=== PATIENT | female | born 1990 | race Caucasian/White ===

== ENCOUNTER 2018-07-14 14:51 | Outpatient (CLI) | payer MEDICARE ==
[2018-07-14 15:04] VITALS: BP 157/90; PULSE 97; RESP 16; TEMP 97.6
[2018-07-14 16:22] LABS: Appearance,Urine Clear (Clear); Bilirubin,Urine Negative (Negative); Blood,Urine Negative (Negative); Color,Urine Yellow; Glucose,Urine (UA) Negative (Negative); Ketones,Urine Negative (Negative); Leukocyte Esterase,Urine Negative (Negative); Nitrite,Urine Negative (Negative); Protein,Urine Negative (Negative); Specific Gravity,Urine 1.007 (1.001-1.035); Urobilinogen,Urine <2.0 mg/dL (<2.0)
[2018-07-14 16:23] LABS: Basophils % (A) 0 %; Eosinophils # (A) 0.1 k/uL (0-0.7); Eosinophils % (A) 1 %; HCT 41.7 % (34.0-46.0); HGB 14.1 gm/dL (11.4-16.0); Lymphocytes # (A) 2.5 k/uL (1.0-4.8); Lymphocytes % (A) 24 %; MCH 29.7 pg (25.0-35.0); MCHC 33.8 g/dL (31.0-37.0); MCV 87.8 fL (80.0-100.0); Mean Platelet Volume 10.2; Monocytes # (A) 0.5 k/uL (0-1.0); Monocytes % (A) 5 %; Neutrophils # (A) 7.4 k/uL (1.3-7.7); Neutrophils % (A) 69 %; Platelet Count 187 k/uL (150-450); RBC 4.75 m/uL (3.80-5.40); RDW 12.8 % (11.5-15.5); WBC 10.7 k/uL (3.8-10.6)
--- NOTE | 2018-07-14 16:46 | US ---
EXAMINATION TYPE: US OB limited DATE OF EXAM: 07/14/2018 COMPARISON: NONE CLINICAL HISTORY: Decreased movement. EXAM PERFORMED: Transabdominal (TA) GESTATIONAL AGE / DATING Physician Established: (36 weeks/0 days) EDC: 08/11/18 No growth performed on today?s study per ordering physician SURVEY FATIMAH: 11.5 cm Ultrasound evidence of premature rupture of membranes? no PRESENTATION: Vertex HEART RATE: 148 bpm RHYTHM: Normal IMPRESSION: Normal amniotic fluid. No complicating process seen.
[2018-07-14 17:34] LABS: ALT 25 U/L (9-52); AST 24 U/L (14-36); Blood Urea Nitrogen 6 mg/dL (7-17); LDH 390 U/L (313-618)
--- NOTE | 2018-07-14 23:07 | P.MSEPDOC ---
Presenting Problems - Arrival Data Date of Arrival on Unit: 07/14/18 Time of Arrival on Unit: 14:40 Mode of Transport: Portable - Complaint OB-Reason for Admission/Chief Complaint: Decreased Movement Medical History - Information : 1 Para: 0 Term: 0 : 0 Abortions: Spontaneous or Elective: 0 Number of Living Children: 0 - Gestational Age Gestational Age by MADAI (wks/days): 36 Weeks and 0 Days Review of Systems - Review of Systems Constitutional: No problems Breast: No problems ENT: No problems Cardiovascular: No problems Respiratory: No problems Gastrointestinal: No problems Genitourinary: No problems Musculoskeletal: No problems Neurological: No problems Skin: No problems Vital Signs - Temperature Temperature: 97.6 F Temperature Source: Oral - Pulse Pulse Oximetery Pulse Rate: 97 Pulse Assessment Method: Automatic Cuff - Respirations Respiratory Rate: 16 O2 Sat by Pulse Oximetry: 99 - Blood Pressure Right Arm Sitting Blood Pressure: 157/90 Blood Pressure Mean: 112 Blood Pressure Source: Automatic Cuff Medical Screen Scoring (Pre) - Cervical Exam Dilation: Exam Deferred Effacement: Exam Deferred Membranes: Intact - Uterine Contractions Frequency: N/A Duration: N/A Intensity: N/A - Maternal Vital Signs Maternal Temperature: N/A Maternal Blood Pressure: Systolic >139 = 2 Signs of Preeclampsia: N/A Maternal Respirations: N/A - Pain Assessment Pain Location and Character: Right, Groin Pain Scale Used: Numeric (1 - 10) Pain Intensity: 4 Pain Behavior: None Exhibited - Maternal Trauma Maternal Trauma: N/A - Assessment Baseline FHR: 138 Heart Rate - NICHD Category: Category I (Normal) = 0 Position: N/A Station: N/A - Total Score Total Score (Pre): 2 - Level of Risk Level of Risk: Low (0-5) Physician Notification (Pre) - Physician Notified Physician Notified Date: 07/14/18 Medical Screen Scoring (Post) - Cervical Exam Dilation: Exam Deferred Effacement: Exam Deferred Membranes: Intact - Uterine Contractions Frequency: > or = 36 weeks =2 Duration: > 40 seconds = 2 Intensity: N/A - Maternal Vital Signs Maternal Temperature: N/A Maternal Blood Pressure: Diastolic > 89 = 1 Signs of Preeclampsia: N/A Maternal Respirations: N/A - Maternal Trauma Maternal Trauma: N/A - Assessment Heart Rate: 135 Heart Rate - NICHD Category: Category I (Normal) = 0 NST: Reactive Position: N/A Station: N/A - Total Score Total Score (Post): 5 - Post Treatment Level of Risk Post Treatment Level of Risk: Low (0-5) Physician Notification (Post) - Physician Notified Physician Notified Date: 07/14/18 Physician Notified Time: 17:45 Physician/Practitioner Notified:: Dr Pike Spoke With: Dr Pike New Order Received: Yes Disposition - Disposition OB Disposition: Discharge to home, Written follow up instructions reviewed Discharge Date: 07/14/18 Discharge Time: 17:50 I agree with the RN Medical Screening Exam: Yes Risk & Benefit of care provided described in d/c instruction: Yes Diagnosis: GESTATIONAL HTN W/O SIGNIFICANT PROTEINURIA, THIRD TRIMESTER Additional Diagnoses: Decreased movement, third trimester
== END 2018-07-14 17:50 | disposition home or self-care (01) ==
LOC: FBPOP 14:51 → MERGE 14:51 → FBPOP 17:50
PROVIDERS: ATTEND Obstetrics & Gynecology
DX: O13.3 Gestational [pregnancy-induced] hypertension without significant proteinuria, third trimester (principal); Z3A.36 36 weeks gestation of pregnancy
CPT/HCPCS: 59025; 76815; 81003; 82565; 83615; 84112; 84450; 84460; 84520; 84550; 85025; 99215

== ENCOUNTER 2018-07-20 11:41 | Inpatient (IN) | payer MEDICARE, OTHER ==
[2018-07-20] MEDS ORDERED: OXYTOCIN 10 UNIT/ML 1 ML VIAL IM PRN (12:24)
[2018-07-20] MEDS ORDERED: METHYLERGONOVINE 0.2 MG/ML 1 ML AMP IM PRN (12:24)
[2018-07-20] MEDS ORDERED: LIDOCAINE 0.5% (PF) 5 MG/ML (50 ML SDV) SQ PRN (12:24)
[2018-07-20] MEDS ORDERED: CARBOPROST TROMETHAMINE 250 MCG/ML 1 ML AMP IM PRN (12:24)
[2018-07-20] MEDS ORDERED: TERBUTALINE 1 MG/ML VIAL SQ PRN (12:24)
[2018-07-20] MEDS ORDERED: AMPICILLIN 2,000 MG in SODIUM CHLORIDE 0.9% 100 ML IVPB STA (12:26)
[2018-07-20] MEDS ORDERED: LACTATED RINGERS 1,000 ML IV SCH (12:30)
[2018-07-20 13:01] LABS: Basophils % (A) 0 %; Eosinophils # (A) 0.1 k/uL (0-0.7); Eosinophils % (A) 1 %; HCT 42.7 % (34.0-46.0); HGB 14.7 gm/dL (11.4-16.0); Lymphocytes # (A) 2.6 k/uL (1.0-4.8); Lymphocytes % (A) 22 %; MCHC 34.4 g/dL (31.0-37.0); MCV 87.1 fL (80.0-100.0); Mean Platelet Volume 10.2; Monocytes # (A) 0.4 k/uL (0-1.0); Monocytes % (A) 4 %; Neutrophils # (A) 8.8 k/uL (1.3-7.7); Neutrophils % (A) 72 %; Platelet Count 173 k/uL (150-450); RBC 4.91 m/uL (3.80-5.40); RDW 12.5 % (11.5-15.5); WBC 12.1 k/uL (3.8-10.6)
[2018-07-20 13:10] LABS: ALT 27 U/L (9-52); AST 28 U/L (14-36); Blood Urea Nitrogen 7 mg/dL (7-17); LDH 394 U/L (313-618); Uric Acid 5.3 mg/dL (3.7-7.4)
[2018-07-20 13:20] LABS: Appearance,Urine Clear (Clear); Bacteria,Urine Rare /hpf; Bilirubin,Urine Negative (Negative); Blood,Urine Moderate (Negative); Color,Urine Light Yellow; Glucose,Urine (UA) Negative (Negative); Hyaline Casts,Urine 1 /lpf (0-2); Ketones,Urine Negative (Negative); Leukocyte Esterase,Urine Negative (Negative); Mucus,Urine Rare /hpf; Nitrite,Urine Negative (Negative); Protein,Urine Negative (Negative); RBC,Urine 4 /hpf (0-5); Specific Gravity,Urine 1.009 (1.001-1.035); Squamous Epithelial Cell,Urine 3 /hpf (0-4); Urobilinogen,Urine <2.0 mg/dL (<2.0); WBC,Urine 1 /hpf (0-5)
--- NOTE | 2018-07-20 13:24 | P.HPOB ---
History of Present Illness H&P Date: 07/20/18 Chief Complaint: SROM 28 year old presents at 36 weeks 6 days with SROM at 1030am. Her cervix is 3/90/-1. She is kevin irregularly. heart tones 130-135 with moderate variability and reactive. She has had some elevated blood pressures over the last week. Labs have been wnl and she was scheduled for induction at 37 weeks for gestational hypertension. Review of Systems All systems: negative Constitutional: Denies chills, Denies fever Eyes: denies blurred vision, denies pain Ears, nose, mouth and throat: Denies headache, Denies sore throat Cardiovascular: Denies chest pain, Denies shortness of breath Respiratory: Denies cough Gastrointestinal: Denies abdominal pain, Denies diarrhea, Denies nausea, Denies vomiting Genitourinary: Denies dysuria, Denies hematuria Musculoskeletal: Denies myalgias Integumentary: Denies pruritus, Denies rash Neurological: Denies numbness, Denies weakness Psychiatric: Denies anxiety, Denies depression Endocrine: Denies fatigue, Denies weight change Past Medical History Past Medical History: GERD/Reflux, Thyroid Disorder (hypothyroid) Additional Past Medical History / Comment(s): Obstetric history: This is her first . She has had care with Dr Pike since 8 weeks. O+, abs neg, Rub nonimmune, RPR NR, Hep B neg, GBS positive. neg quad. normal anatomy US. History of Any Multi-Drug Resistant Organisms: MRSA Date of last positivie culture/infection: 03/2010 MDRO Source:: Left axilla Additional Past Surgical History / Comment(s): dilated esophagus with EGD Past Psychological History: No Psychological Hx Reported Smoking Status: Never smoker Past Alcohol Use History: None Reported Past Drug Use History: None Reported Medications and Allergies Home Medications Medication Instructions Recorded Confirmed Type Pnv,Calcium 72/Iron/Folic Acid 1 each PO DAILY 07/14/18 07/20/18 History [ Plus Tablet] RX: Levothyroxine Sodium 88 mcg PO DAILY 07/14/18 07/20/18 History Allergies Allergy/AdvReac Type Severity Reaction Status Date / Time No Known Allergies Allergy Verified 07/18/18 11:30 Exam Osteopathic Statement: *. No significant issues noted on an osteopathic structural exam other than those noted in the History and Physical/Consult. Vital Signs Temp Pulse Resp BP Pulse Ox 07/20/18 12:04 97.3 F L 89 18 137/99 97 Intake and Output 07/19/18 07/20/18 07/20/18 22:59 06:59 14:59 Other: Weight 114.305 kg Heart: RRR Lungs: CTAB Abdomen: soft, nontender Extremeties: neg bebo's Results Result Diagrams: 07/20/18 12:50 07/20/18 12:50 Abnormal Lab Results - Last 24 Hours (Table) 07/20/18 07/20/18 Range/Units 12:50 12:50 WBC 12.1 H (3.8-10.6) k/uL Neutrophils # 8.8 H (1.3-7.7) k/uL Creatinine 0.47 L (0.52-1.04) mg/dL Assessment and Plan (1) Gestational hypertension Current Visit: Yes Status: Acute Code(s): O13.9 - GESTATIONAL HTN W/O SIGNIFICANT PROTEINURIA, UNSP TRIMESTER SNOMED Code(s): 804593717 (2) Spontaneous rupture of membranes Current Visit: Yes Status: Acute Code(s): CVI0589 - SNOMED Code(s): 513873282 Plan: 1. admit to [facility] 2. ampicillin for GBS ppx 3. anticipate normal vaginal delivery
[2018-07-20 13:27] LABS: INR 0.9 (<1.2); Partial Thromboplastin Time 22.3 sec (22.0-30.0); Prothrombin Time 9.2 sec (9.0-12.0)
[2018-07-20] MEDS ORDERED: BUTORPHANOL 1 MG/ML 1 ML VIAL IV PRN (14:21)
[2018-07-20 15:31] VITALS: BMI 37.2
[2018-07-20] MEDS ORDERED: AMPICILLIN 1,000 MG in SODIUM CHLORIDE 0.9% 50 ML IVPB SCH (16:25)
[2018-07-20] MEDS ORDERED: WITCH HAZEL 1 EACH MED..PAD TOPICAL PRN (16:49)
[2018-07-20] MEDS ORDERED: diphenhydrAMINE 25 MG CAP PO PRN (16:49)
[2018-07-20] MEDS ORDERED: HYDROCORTISONE 2.5% RECTAL CREAM 30 GM TUBE RECTAL PRN (16:49)
[2018-07-20] MEDS ORDERED: LANOLIN CREAM 5 GM TUBE TOPICAL PRN (16:49)
[2018-07-20] MEDS ORDERED: ZOLPIDEM 5 MG TAB PO PRN (16:49)
[2018-07-20] MEDS ORDERED: BENZOCAINE/MENTHOL SPRAY 1 GM/SPRAY AEROSOL TOPICAL PRN (16:49)
[2018-07-20] MEDS ORDERED: diphenhydrAMINE 50 MG CAP PO PRN (16:49)
[2018-07-20] MEDS ORDERED: MEASLES-MUMPS-RUBELLA VACC/PF 12,500 UNIT/0.5 ML VIAL SQ ONE (16:49)
[2018-07-20] MEDS ORDERED: diphenhydrAMINE 50 MG/ML 1 ML VIAL IVP PRN ×2 (16:49)
[2018-07-20] MEDS ORDERED: SIMETHICONE 80 MG CHEWABLE PO PRN (16:49)
[2018-07-20] MEDS ORDERED: OXYTOCIN 20 UNITS/1000 ML NS 1,000 ML IV SCH (17:00)
[2018-07-20] MEDS: IBUPROFEN 600 MG TAB PO PRN (17:06)
[2018-07-20 19:05] VITALS: RESP 16
[2018-07-20] MEDS: SENNOSIDES-DOCUSATE SODIUM 1 EACH TAB PO SCH (20:19)
[2018-07-20] MEDS: ACETAMINOPHEN TAB 325 MG TAB PO PRN (20:19)
[2018-07-21] MEDS: IBUPROFEN 600 MG TAB PO PRN ×3 (01:12→16:36)
--- NOTE | 2018-07-21 08:02 | P.PROBDLV ---
Vaginal Delivery Note - . Vaginal Delivery Note: 28-year-old presented at 36 weeks and 6 days with spontaneous rupture of membranes at 10:30 AM. Her cervix was 3 cm, 90% effaced, and -1 station. She is kevin every few minutes. heart tones 130-135 with moderate variability and reactive. Ampicillin was started for GBS prophylaxis. She progressed on her own and was completely dilated at 1555. She pushed, and delivered a viable female at 1619 over intact perineum. Head delivered OA, anterior shoulder delivered gentle downward guidance followed by posterior shoulder and rest of body. Nose and mouth bulb suctioned, cord clamped and cut , infant placed on mother's abdomen. Apgars 9, 9, weight 6 pounds 14.8 ounces. Placenta delivered spontaneously, intact with three-vessel cord at 1623. Vagina, cervix, and perineum were inspected. First-degree midline laceration was repaired with 3-0 Vicryl. Estimated blood loss 200 mL.
[2018-07-21] MEDS: SENNOSIDES-DOCUSATE SODIUM 1 EACH TAB PO SCH ×2 (08:34→22:03)
--- NOTE | 2018-07-21 08:44 | P.PNOBGVD ---
Subjective - Subjective Principal diagnosis: Status post vaginal delivery day #1 Interval history: Patient is doing well. She is attempting to breast-feed. Lochia is decreasing. Pain is fairly well controlled with pain medication. Patient reports: Reports appetite normal, Reports voiding normally, Reports pain well controlled, Reports ambulating normally : doing well Objective - Latest Vital Signs Latest vital signs: Vital Signs Temp Pulse Resp BP Pulse Ox 07/21/18 04:00 98.2 F 72 16 130/80 07/21/18 00:00 98.2 F 87 16 144/91 07/20/18 19:03 98 F 84 16 155/67 07/20/18 18:33 86 16 131/67 07/20/18 18:03 100 16 129/78 07/20/18 17:48 86 16 130/74 07/20/18 17:33 88 16 121/72 07/20/18 17:18 88 16 119/71 07/20/18 17:03 98.6 F 90 16 132/75 07/20/18 12:04 97.3 F L 89 18 137/99 97 Intake and Output 07/20/18 07/21/18 07/21/18 22:59 06:59 14:59 Intake Total 499.5 Balance 499.5 Intake: Intake, IV Titration 499.5 Amount Oxytocin 20 Units/1000 ml 499.5 Ns 1,000 ml @ Per Protocol IV .Q0M [facility] Rx#: [id number] Other: # Voids 2 - Exam Extremities: Present: normal. Absent: tenderness Abdomen: Present: normal appearance, soft. Absent: distention, tenderness Uterus: Present: normal, firm, tenderness (Mild) - Labs Labs: Abnormal Lab Results - Last 24 Hours (Table) 07/20/18 07/20/18 07/20/18 Range/Units 12:50 12:50 12:50 WBC 12.1 H (3.8-10.6) k/uL Neutrophils # 8.8 H (1.3-7.7) k/uL Creatinine 0.47 L (0.52-1.04) mg/dL Urine Blood Moderate H (Negative) Urine Bacteria Rare H (None) /hpf Urine Mucus Rare H (None) /hpf Assessment and Plan Assessment: Status post vaginal delivery day #1. Gestational hypertension-no significantly elevated blood pressures. Plan: Continue with care and monitoring of blood pressures.
[2018-07-21] MEDS: ACETAMINOPHEN TAB 325 MG TAB PO PRN ×2 (12:28→22:04)
[2018-07-22] MEDS: IBUPROFEN 600 MG TAB PO PRN ×2 (02:33→13:34)
--- NOTE | 2018-07-22 08:39 | P.DS ---
Providers Date of admission: 07/20/18 12:05 Expected date of discharge: 07/22/18 Attending physician: Emely Pike Primary care physician: Stated None Hospital Course: Is a 28-year-old female 1 para 0 at 36-6/7 weeks who presented with spontaneous rupture of membranes. She did receive antibiotic prophylaxis secondary to group B streptococcus. She also had some mildly elevated blood pressures upon admission. Her preeclampsia labs were negative. She delivered vaginally a viable female infant on 07/20/2018 with scores of 9 at 1 minute and 9 at 5 minutes and infant weight of 6 pounds 14.8 ounces. Her course was essentially uncomplicated. She still has had some elevated blood pressures in the 140s to 150s over 80s to 90s. She denies any headache or blurry vision. She is working on breast-feeding. Lochia is decreasing. Her pain is fairly well controlled with ibuprofen. Other vital signs are normal. Fundus is firm and minimally tender. Extremities show negative Homans. Impression is status post vaginal delivery day #2. Plan is to discharge home today. She is advised to keep an eye on her blood pressures at home. She is advised to call the office if her blood pressures are above 160 systolic or above 110 diastolic. Routine instructions are given. She is advised to call the office if she has any further questions or concerns prior to her appointment time. She is advised to follow up in the office in 6 weeks for a check. Procedures: Spontaneous vaginal delivery of viable female on 07/20/2018 Patient Condition at Discharge: Stable Plan - Discharge Summary New Discharge Prescriptions: New Ibuprofen [Motrin] 600 mg PO Q6HR PRN #60 tab PRN Reason: Mild Pain Or Fever >= 100.5 Continue Pnv,Calcium 72/Iron/Folic Acid [ Plus Tablet] 1 each PO DAILY Levothyroxine Sodium 88 mcg PO DAILY Discharge Medication List Levothyroxine Sodium 88 mcg PO DAILY 07/14/18 [History] Pnv,Calcium 72/Iron/Folic Acid [ Plus Tablet] 1 each PO DAILY 07/14/18 [ History] Ibuprofen [Motrin] 600 mg PO Q6HR PRN #60 tab 07/22/18 [Rx] Follow up Appointment(s)/Referral(s): Emely Pike DO [Doctor of Osteopathic Medicine] - 6 Weeks Activity/Diet/Wound Care/Special Instructions: Instructions 1. Do not begin any exercise program for 3 weeks. 2. Do not resume sexual relations for 3 weeks or longer if uncomfortable. 3. You may take tub baths or showers at any time. 4. You may use tampons if desired after 3 weeks. 5. Keep the area of episiotomy (stitches) clean and dry. 6. If you are not nursing, wear a good fitting, supportive bra during the day and limit fluid intake for at least 1 week to prevent breast engorgement. 7. Call the office, [phone], within the next week to make appointment for your 6 week checkup if it has not already been made. 8. Report any of the following occurrences to the doctor promptly: a. Heavy, excessive bleeding b. Chills, fever c. Burning or frequency of urination d. Pain or redness and breasts if nursing e. Increasing pain or swelling in episiotomy (stitches). In addition to the above instructions, the following additional should be followed: 1. No heavy lifting or straining (exercising) until after 6 week checkup. 2. Keep abdominal incision clean and dry: You may wear a dressing if more comfortable. 3. Make office appointment for 10 days after going home or as instructed by her doctor. Discharge Disposition: HOME SELF-CARE
[2018-07-22] MEDS: SENNOSIDES-DOCUSATE SODIUM 1 EACH TAB PO SCH (09:08)
[2018-07-22] MEDS: ACETAMINOPHEN TAB 325 MG TAB PO PRN (09:09)
[2018-07-22 16:47] VITALS: BP 138/84; PULSE 85; TEMP 98.1
== END 2018-07-22 17:45 | disposition home or self-care (01) | DRG 775 ==
LOC: FBPOP 11:41 → 4FBP 12:05
PROVIDERS: ADMIT Obstetrics & Gynecology; ATTEND Obstetrics & Gynecology
PROC: 0HQ9XZZ Repair Perineum Skin, External Approach (ICD-10-PCS; principal; 2018-07-20)
PROC: 10E0XZZ Delivery of Products of Conception, External Approach (ICD-10-PCS; principal; 2018-07-20)
DX: O42.913 Preterm premature rupture of membranes, unspecified as to length of time between rupture and onset of labor, third trimester (principal); Z37.0 Single live birth; O99.284 Endocrine, nutritional and metabolic diseases complicating childbirth; O13.4 Gestational [pregnancy-induced] hypertension without significant proteinuria, complicating childbirth; O70.0 First degree perineal laceration during delivery; E03.9 Hypothyroidism, unspecified; Z3A.36 36 weeks gestation of pregnancy; Z79.890 Hormone replacement therapy
CPT/HCPCS: 59025; 81001; 82565; 83615; 84112; 84450; 84460; 84520; 84550; 85025; 85610; 85730; 86850; 86900; 86901; 88307; 90707; 99213

== ENCOUNTER 2018-07-28 01:30 | Emergency (ER) | payer OTHER ==
[2018-07-28] MEDS ORDERED: LABETALOL 5 MG/ML VIAL MDV IVP STA (01:58)
[2018-07-28] MEDS ORDERED: SODIUM CHLORIDE 0.9% 1,000 ML IV ONE (01:59)
--- NOTE | 2018-07-28 02:51 | ED ---
General Adult HPI - General Source: patient Mode of arrival: ambulatory Limitations: no limitations <Philly Richter - Last Filed: 07/28/18 04:08> <Ruby Frazier - Last Filed: 07/28/18 07:38> - General Chief complaint: Recheck/Abnormal Lab/Rx Stated complaint: High BP Time Seen by Provider: 07/28/18 01:50 - History of Present Illness Initial comments: 28-year-old female patient who is 8 days presents to the emergency department today for evaluation of elevated blood pressure. Patient states that she has been having issues with blood pressure since before delivery. Patient states she has been taking labetalol. States that the labetalol dose was increased at her last OB appointment yesterday. States that she has been checking her blood pressure throughout the day today and the level has gotten as high as 180/118. Patient states that she is experiencing a mild headache today as well as some midepigastric discomfort. Patient states she is also having a sharp left-sided chest pain and radiates through to her back. She denies any shortness of breath with this. Denies any palpitations. She denies any nausea or vomiting. No syncope or near syncopal episodes. Patient states she had been having some bilateral foot swelling but that has improved. Patient did speak to her HOSPITAL ADMINISTRATIVE ASSISTANT Dr. Pike who instructed her to present to for further evaluation. Patient denies any recent rash, fever, chills, shortness breath, chest pain, abdominal pain, nausea, vomiting, diarrhea, constipation, back pain, numbness, tingling, dizziness, weakness, hematuria, dysuria, urinary urgency, urinary frequency, headache, visual changes, or any other complaints. (Philly Richter) - Related Data Home Medications Medication Instructions Recorded Confirmed Levothyroxine Sodium 88 mcg PO DAILY 07/14/18 07/20/18 Pnv,Calcium 72/Iron/Folic Acid 1 each PO DAILY 07/14/18 07/20/18 [ Plus Tablet] Previous Rx's Medication Instructions Recorded Ibuprofen [Motrin] 600 mg PO Q6HR PRN #60 tab 07/22/18 NIFEdipine [Procardia] 10 mg PO BID #60 capsule 07/28/18 Allergies Allergy/AdvReac Type Severity Reaction Status Date / Time No Known Allergies Allergy Verified 07/28/18 01:40 Review of Systems ROS Other: All systems not noted in ROS Statement are negative. <Philly Richter M - Last Filed: 07/28/18 04:08> ROS Other: All systems not noted in ROS Statement are negative. <Ruby Frazier P - Last Filed: 07/28/18 07:38> ROS Statement: Those systems with pertinent positive or pertinent negative responses have been documented in the HPI. Past Medical History Past Medical History: GERD/Reflux, Thyroid Disorder Additional Past Medical History / Comment(s): Obstetric history: This is her first . She has had care with Dr Pike since 8 weeks. O+, abs neg, Rub nonimmune, RPR NR, Hep B neg, GBS positive. neg quad. normal anatomy US. History of Any Multi-Drug Resistant Organisms: MRSA Date of last positivie culture/infection: 03/2010 MDRO Source:: Left axilla Additional Past Surgical History / Comment(s): dilated esophagus with EGD Past Anesthesia/Blood Transfusion Reactions: No Reported Reaction Past Psychological History: No Psychological Hx Reported Smoking Status: Never smoker Past Alcohol Use History: None Reported Past Drug Use History: None Reported - Past Family History Mother Family Medical History: Cancer <Philly Richter - Last Filed: 07/28/18 04:08> General Exam Limitations: no limitations General appearance: alert, in no apparent distress, other (This is a well- developed, well-nourished adult female patient in no acute distress. Vital signs upon presentation are temperature 98.3F, pulse 76, respirations 16, blood pressure 149/99, pulse ox 97% on room air.) Eye exam: Present: normal appearance, PERRL, EOMI. Absent: scleral icterus, conjunctival injection, periorbital swelling ENT exam: Present: normal exam, normal oropharynx, mucous membranes moist Respiratory exam: Present: normal lung sounds bilaterally. Absent: respiratory distress, wheezes, rales, rhonchi, stridor Cardiovascular Exam: Present: regular rate, normal rhythm, normal heart sounds. Absent: systolic murmur, diastolic murmur, rubs, gallop, clicks GI/Abdominal exam: Present: soft, normal bowel sounds. Absent: distended, tenderness, guarding, rebound, rigid Extremities exam: Present: normal inspection, full ROM, normal capillary refill , other (No pedal edema). Absent: tenderness, pedal edema, joint swelling, calf tenderness Neurological exam: Present: alert, oriented X3, CN II-XII intact Psychiatric exam: Present: normal affect, normal mood Skin exam: Present: warm, dry, intact, normal color. 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 ] Respiratory 16 17 Rate Blood Pressure 149/99 167/103 O2 Sat by Pulse 97 98 Oximetry 07/28/18 07/28/18 07/28/18 01:55 02:20 02:44 Temperature Pulse Rate 79 65 67 Pulse Rate [ [employer] Scientist ] Respiratory 18 17 18 Rate Blood Pressure 159/78 147/92 148/96 O2 Sat by Pulse 98 99 98 Oximetry 07/28/18 07/28/18 07/28/18 03:15 03:45 04:01 Temperature 97.9 F Pulse Rate 68 65 66 Pulse Rate [ [employer] Scientist ] Respiratory 18 16 17 Rate Blood Pressure 151/75 147/71 136/64 O2 Sat by Pulse 97 99 99 Oximetry 07/28/18 04:05 Temperature Pulse Rate 92 Pulse Rate [ [employer]ist ] Respiratory 17 Rate Blood Pressure 145/69 O2 Sat by Pulse 97 Oximetry EKG Findings - EKG Comments: EKG Findings:: EKG obtained at oh to 30 shows normal sinus rhythm with a sinus arrhythmia. Ventricular rate is 62, AL interval 134, QRS duration 82, QTC 418, QTC 424. No evidence of ST elevation or depression. <Philly Richter - Last Filed: 07/28/18 04:08> Medical Decision Making - Lab Data Result diagrams: 07/28/18 02:30 07/28/18 02:30 - Radiology Data Radiology results: report reviewed, image reviewed <Philly Richter - Last Filed: 07/28/18 04:08> - Lab Data Result diagrams: 07/28/18 02:30 07/28/18 02:30 <Ruby Frazier - Last Filed: 07/28/18 07:38> - Medical Decision Making 28-year-old female patient presented to the emergency department today for evaluation of elevated blood pressure in the period. Physical examination was relatively unremarkable. Patient had no edema, lung sounds are clear, abdomen is soft and nontender. Labs reviewed and were unremarkable. Patient no protein in the urine. Liver enzymes are within normal range. LDH and uric acid were satisfactory. We did give a dose of labetalol and magnesium here in the department which did improve blood pressure readings. Did discuss the case with my attending Dr. Frazier who did speak to patient's HOSPITAL ADMINISTRATIVE ASSISTANT doctor well and also did consult with Dr. quintero on from cardiology. Patient will be discharged home at this time with a prescription for Procardia. She is instructed to call the medicaid nurse's office tomorrow for an appointment. She is also instructed to follow-up with her HOSPITAL ADMINISTRATIVE ASSISTANT for recheck as possible. Return parameters were discussed in detail. She verbalizes understanding and agrees with this plan. (Philly Richter) I personally saw and examined the patient. I reviewed and agree with the mid- level provider findings including all diagnostic interpretations and treatment plans as written unless otherwise stated. I was present for weldon portions of any procedures performed. I discussed patient care with Dr. Glendy MIKE on-call who agrees that based on labs the patient does not have preeclampsia. Recommends discussion of patient's blood pressure management with cardiology. Patient care was discussed with cardiology on-call who stated the patient is okay to be discharged home on by mouth Procardia contact the office in the morning for follow-up later in the day. (Ruby Frazier) - Lab Data Lab Results 07/28/18 07/28/18 07/28/18 Range/Units 02:30 02:30 02:30 WBC 10.6 (3.8-10.6) k/uL RBC 4.70 (3.80-5.40) m/uL Hgb 13.9 (11.4-16.0) gm/dL Hct 42.0 (34.0-46.0) % MCV 89.4 (80.0-100.0) fL MCH 29.7 (25.0-35.0) pg MCHC 33.2 (31.0-37.0) g/dL RDW 12.7 (11.5-15.5) % Plt Count 238 (150-450) k/uL Neutrophils % 65 % Lymphocytes % 27 % Monocytes % 4 % Eosinophils % 3 % Basophils % 0 % Neutrophils # 6.9 (1.3-7.7) k/uL Lymphocytes # 2.8 (1.0-4.8) k/uL Monocytes # 0.4 (0-1.0) k/uL Eosinophils # 0.3 (0-0.7) k/uL Basophils # 0.0 (0-0.2) k/uL Sodium 139 (137-145) mmol/L Potassium 4.6 (3.5-5.1) mmol/L Chloride 110 H (98-107) mmol/L Carbon Dioxide 19 L (22-30) mmol/L Anion Gap 10 mmol/L BUN 9 (7-17) mg/dL Creatinine 0.52 (0.52-1.04) mg/dL Est GFR (CKD-EPI)AfAm >90 (>60 ml/min/1.73 sqM) Est GFR (CKD-EPI)NonAf >90 (>60 ml/min/1.73 sqM) Glucose 94 (74-99) mg/dL Uric Acid 7.1 (3.7-7.4) mg/dL Calcium 9.4 (8.4-10.2) mg/dL Total Bilirubin 0.6 (0.2-1.3) mg/dL AST 36 (14-36) U/L ALT 30 (9-52) U/L Alkaline Phosphatase 105 (38-126) U/L Lactate Dehydrogenase 704 H (313-618) U/L Total Protein 6.8 (6.3-8.2) g/dL Albumin 3.6 (3.5-5.0) g/dL Urine Color Light Yellow Urine Appearance Cloudy H (Clear) Urine pH 5.5 (5.0-8.0) Ur Specific [place] 1.006 (1.001-1.035) Urine Protein Negative (Negative) Urine Glucose (UA) Negative (Negative) Urine Ketones Negative (Negative) Urine Blood Moderate H (Negative) Urine Nitrite Negative (Negative) Urine Bilirubin Negative (Negative) Urine Urobilinogen <2.0 (<2.0) mg/dL Ur Leukocyte Esterase Large H (Negative) Urine RBC 10 H (0-5) /hpf Urine WBC 30 H (0-5) /hpf Ur Squamous Epith Cells 3 (0-4) /hpf Urine Bacteria Rare H (None) /hpf Urine Mucus Rare H (None) /hpf - Radiology Data Two-view x-ray of the chest is obtained. Heart and mediastinum are normal. Lungs are clear. Diaphragm is trauma. Bony thorax appears normal. Impression by Dr. Gomez shows normal chest with no change. (Philly Richter) Disposition Is patient prescribed a controlled substance at d/c from ED?: No Time of Disposition: 04:04 <Philly Richter - Last Filed: 07/28/18 04:08> <Ruby Frazier - Last Filed: 07/28/18 07:38> Clinical Impression: Malignant hypertension Disposition: HOME SELF-CARE Condition: Good Instructions: Hypertension (ED) Additional Instructions: Start Procardia in the morning. Call Dr. Gaffney's (medicaid nurse) in the morning for appointment. Follow-up with your HOSPITAL ADMINISTRATIVE ASSISTANT for recheck as soon as possible. Return here immediately for any new, worsening, or concerning symptoms. Prescriptions: NIFEdipine [Procardia] 10 mg PO BID #60 capsule Referrals: Emely Pike DO [Doctor of Osteopathic Medicine] - 1-2 days Jose Miguel Gaffney MD [STAFF PHYSICIAN] - 1-2 days
--- NOTE | 2018-07-28 02:52 | XR ---
EXAMINATION TYPE: XR chest 2V DATE OF EXAM: 07/28/2018 COMPARISON: 05/24/2007 HISTORY: Elevated blood pressure chest pain TECHNIQUE: Frontal and lateral views of the chest are obtained. FINDINGS: Heart and mediastinum are normal. Lungs are clear. Diaphragm is normal. Bony thorax appear s normal. IMPRESSION: Normal chest. No change.
[2018-07-28 02:53] LABS: Basophils % (A) 0 %; Eosinophils # (A) 0.3 k/uL (0-0.7); Eosinophils % (A) 3 %; HGB 13.9 gm/dL (11.4-16.0); Lymphocytes # (A) 2.8 k/uL (1.0-4.8); Lymphocytes % (A) 27 %; MCH 29.7 pg (25.0-35.0); MCHC 33.2 g/dL (31.0-37.0); MCV 89.4 fL (80.0-100.0); Mean Platelet Volume 8.1; Monocytes # (A) 0.4 k/uL (0-1.0); Monocytes % (A) 4 %; Neutrophils # (A) 6.9 k/uL (1.3-7.7); Neutrophils % (A) 65 %; Platelet Count 238 k/uL (150-450); RDW 12.7 % (11.5-15.5); WBC 10.6 k/uL (3.8-10.6)
[2018-07-28 02:55] LABS: Appearance,Urine Cloudy (Clear); Bacteria,Urine Rare /hpf; Bilirubin,Urine Negative (Negative); Blood,Urine Moderate (Negative); Color,Urine Light Yellow; Glucose,Urine (UA) Negative (Negative); Ketones,Urine Negative (Negative); Leukocyte Esterase,Urine Large (Negative); Mucus,Urine Rare /hpf; Nitrite,Urine Negative (Negative); PH, Urine 5.5 (5.0-8.0); Protein,Urine Negative (Negative); RBC,Urine 10 /hpf (0-5); Specific Gravity,Urine 1.006 (1.001-1.035); Squamous Epithelial Cell,Urine 3 /hpf (0-4); Urobilinogen,Urine <2.0 mg/dL (<2.0); WBC,Urine 30 /hpf (0-5)
[2018-07-28 03:01] LABS: ALT 30 U/L (9-52); AST 36 U/L (14-36); Albumin 3.6 g/dL (3.5-5.0); Alkaline Phosphatase 105 U/L (38-126); Anion Gap 10 mmol/L; Blood Urea Nitrogen 9 mg/dL (7-17); Calcium 9.4 mg/dL (8.4-10.2); Carbon Dioxide 19 mmol/L (22-30); Chloride 110 mmol/L (98-107); Glucose 94 mg/dL (74-99); LDH 704 U/L (313-618); Sodium 139 mmol/L (137-145); Total Bilirubin 0.6 mg/dL (0.2-1.3); Total Protein 6.8 g/dL (6.3-8.2); Uric Acid 7.1 mg/dL (3.7-7.4)
[2018-07-28 03:06] LABS: Potassium 4.6 mmol/L (3.5-5.1)
[2018-07-28] MEDS: MAGNESIUM SULFATE-D5W PMX 1 GM in DEXTROSE/WATER 1 100ML.BAG IVPB SCH ×2 (03:11→04:16)
[2018-07-28] MEDS ORDERED: NIFEdipine 10 MG CAP PO STA (04:02)
[2018-07-28 04:40] VITALS: RESP 17; TEMP 97.9
[2018-07-28 04:42] VITALS: BP 145/69
[2018-07-28 04:45] VITALS: PULSE 62
== END 2018-07-28 04:21 | disposition home or self-care (01) ==
LOC: EC 01:30
DX: I10 Essential (primary) hypertension (principal); E07.9 Disorder of thyroid, unspecified; Z86.14 Personal history of Methicillin resistant Staphylococcus aureus infection; R07.9 Chest pain, unspecified; R19.8 Other specified symptoms and signs involving the digestive system and abdomen
CPT/HCPCS: 36415; 93005; 80053; 83615; 84550; 85025; 81001; 71046; 99284; 96365; 96375; 96361 ×2; J3475

== ENCOUNTER → 2019-08-23 | Outpatient (CLI) | payer OTHER ==
[2019-08-23 16:20] LABS: Appearance,Urine Clear (Clear); Bacteria,Urine Rare /hpf; Bilirubin,Urine Negative (Negative); Blood,Urine Negative (Negative); Color,Urine Yellow; Glucose,Urine (UA) Negative (Negative); Ketones,Urine Negative (Negative); Leukocyte Esterase,Urine Trace (Negative); Mucus,Urine Rare /hpf; Nitrite,Urine Negative (Negative); PH, Urine 5.5 (5.0-8.0); Protein,Urine Negative (Negative); RBC,Urine 1 /hpf (0-5); Squamous Epithelial Cell,Urine 3 /hpf (0-4); Urobilinogen,Urine <2.0 mg/dL (<2.0)
== END | disposition home or self-care (01) ==
LOC: LABWHC1 15:43
PROVIDERS: ATTEND Obstetrics & Gynecology
DX: R82.90 Unspecified abnormal findings in urine (principal)
CPT/HCPCS: 81001

== ENCOUNTER → 2019-10-13 | Outpatient (CLI) | payer OTHER ==
--- NOTE | 2019-10-16 09:40 | US ---
EXAMINATION TYPE: US pelvic complete DATE OF EXAM: 10/13/2019 COMPARISON: US 2011 CLINICAL HISTORY: N92.1 Metrorrhagia. Irregular periods for the past 3 months, patient on contr ol, 1, para 1 TECHNIQUE: . Transabdominal sonographic images of the pelvis were acquired. Date of LMP: 10/10/2019 EXAM MEASUREMENTS: Uterus: 7.9 x 3.5 x 4.9 cm Endometrial Stripe: 0.3 cm Right Ovary: 2.3 x 1.0 x 2.1 cm Left Ovary: 2.8 x 1.7 x 2.7 cm 1. Uterus: anteverted 2. Endometrium: appears wnl for patient's LMP 3. Right Ovary: wnl 4. Left Ovary: wnl 5. Bilateral Adnexa: wnl 6. Posterior cul-de-sac: wnl IMPRESSION: Unremarkable pelvic ultrasound. In neutral thickness is within normal limits.
== END | disposition home or self-care (01) ==
LOC: RADUSWWP 15:26
PROVIDERS: ATTEND Obstetrics & Gynecology
DX: N92.1 Excessive and frequent menstruation with irregular cycle (principal)
CPT/HCPCS: 76856

== ENCOUNTER → 2020-04-02 | Outpatient (CLI) | payer OTHER ==
--- NOTE | 2020-04-03 06:23 | US ---
EXAMINATION TYPE: Transabdominal DATE OF EXAM: 04/02/2020 3:58 PM COMPARISON: NONE CLINICAL HISTORY: O46.91 Bleeding. Positive beta-hCG test. EXAM PERFORMED: Transabdominal (TA) EXAM MEASUREMENTS: GESTATIONAL AGE / DATING Physician Established: Not yet established Dates by LMP: (9 weeks/2 days) EDC: 11/03/19 Dates by First Scan: No previous this is first scan Dates by Current Scan for:(8 weeks/ 1 days) EDC: 11/11/19 MATERNAL ANATOMY Uterus: 11.1 x 7.7 x 7.4cm Right Ovary: 2.7 x 1.6 x 1.5cm Left Ovary: 2.6 x 1.2 x 1.1cm Post CDS / Adnexa: wnl Presence of free fluid: wnl GESTATION / SURVEY CRL: 16mm ( 8 weeks/1 days) Yolk Sac (normal less than 6mm): 2mm Heart Rate: 170 bpm Rhythm: Normal IUP: Viable IUP Date of LMP: 02/12/20 Beta HcG (if available): Not available at this time Single live intrauterine gestation is confirmed this gestational sac, yolk sac, and pole are id entified on images saved. No free fluid in pelvic cul-de-sac. Both ovaries are identified without suspicious extraovarian adnexal mass. IMPRESSION: Single live intrauterine gestation, mean crown-rump length 1.6 cm corresponding to 8 week 1 day old fetus.
== END | disposition home or self-care (01) ==
LOC: RADUSWWP 15:36
PROVIDERS: ATTEND Obstetrics & Gynecology
DX: O46.91 Antepartum hemorrhage, unspecified, first trimester (principal); N94.89 Other specified conditions associated with female genital organs and menstrual cycle; Z3A.08 8 weeks gestation of pregnancy
CPT/HCPCS: 76801

== ENCOUNTER 2020-04-08 14:31 | Emergency (ER) | payer OTHER ==
[2020-04-08 14:40] VITALS: TEMP 97.8
--- NOTE | 2020-04-08 14:50 | ED ---
General Adult HPI - General Chief complaint: Vaginal Bleeding Stated complaint: 9wks preg, cramping/bleeding Time Seen by Provider: 04/08/20 14:41 Source: patient, RN notes reviewed, old records reviewed Mode of arrival: ambulatory Limitations: no limitations - History of Present Illness Initial comments: 30-year-old female patient presents to ED for chief complaint of with spotting and some cramping. Patient reports that this began last night. Reports that she has had suprapubic cramping and she has been passing some small clots. Patient states that she is 9 weeks . She has been taking her vitamins. She follows up with Dr. Pike. She also reports that last night she did have some burning with urination, denies any today. She denies any other complaints. Systemic: Pt denies fatigue, fever/chills, rash. Pt denies weakness, night sweats, weight loss. Neuro: Pt denies headache, visual disturbances, syncope or pre-syncope. HEENT: Pt denies ocular discharge or irritation, otalgia, rhinorrhea, pharyngitis or notable lymphadenopathy. Cardiopulmonary: Pt denies chest pain, SOB, heart palpitations, dyspnea on exertion. Abdominal/GI: Pt denies n/v/d. : Pt denies frequency/urgency. Denies new onset urinary or bowel incontinence. MSK: Pt denies myalgia, loss of strength or function in extremities. Neuro: Pt denies new onset weakness, paresthesias. - Related Data Home Medications Medication Instructions Recorded Confirmed Levothyroxine Sodium 88 mcg PO DAILY 07/14/18 07/20/18 Pnv,Calcium 72/Iron/Folic Acid 1 each PO DAILY 07/14/18 07/20/18 [ Plus Tablet] Previous Rx's Medication Instructions Recorded Ibuprofen [Motrin] 600 mg PO Q6HR PRN #60 tab 07/22/18 NIFEdipine [Procardia] 10 mg PO BID #60 capsule 07/28/18 Allergies Allergy/AdvReac Type Severity Reaction Status Date / Time No Known Allergies Allergy Verified 04/08/20 14:36 Review of Systems ROS Statement: Those systems with pertinent positive or pertinent negative responses have been documented in the HPI. ROS Other: All systems not noted in ROS Statement are negative. Past Medical History Past Medical History: GERD/Reflux, Thyroid Disorder Additional Past Medical History / Comment(s): Obstetric history: This is her first . She has had care with Dr Pike since 8 weeks. O+, abs neg, Rub nonimmune, RPR NR, Hep B neg, GBS positive. neg quad. normal anatomy US. History of Any Multi-Drug Resistant Organisms: MRSA Date of last positivie culture/infection: 03/2010 MDRO Source:: Left axilla Additional Past Surgical History / Comment(s): dilated esophagus with EGD Past Anesthesia/Blood Transfusion Reactions: No Reported Reaction Past Psychological History: No Psychological Hx Reported Smoking Status: Never smoker Past Alcohol Use History: None Reported Past Drug Use History: None Reported - Past Family History Mother Family Medical History: Cancer General Exam - General Exam Comments Initial Comments: Constitutional: NAD, AOX3, Pt has pleasant affect. HEENT: NC/AT, trachea midline. External ears appear normal, without discharge. Mucous membranes moist. EOM intact. There is no scleral icterus. No pallor noted. Cardiopulmonary: RRR, no murmurs, rubs or gallops, no JVD noted. Lungs CTAB in anterior and posterior schroeder. No peripheral edema. Abdominal exam: Abdomen soft and non-distended. Abdomen mildly tender to palpation in suprapubic region.. Bowel sounds active in LLQ. No hepatosplenomegaly. No ecchymosis Neuro: CN II-XII grossly intact. No nuchal rigidity. No raccon eyes, no keyes sign, MSK: Full active ROM in upper and lower extremities Limitations: no limitations Course Vital Signs 04/08/20 14:36 Temperature 97.8 F Pulse Rate 104 H Respiratory 18 Rate Blood Pressure 134/88 O2 Sat by Pulse 100 Oximetry Medical Decision Making - Medical Decision Making 30-year-old female patient presents to ED for chief complaint of with spotting and some cramping. Patient reports that this began last night. Reports that she has had suprapubic cramping and she has been passing some small clots. Patient states that she is 9 weeks . She has been taking her vitamins. She follows up with Dr. Pike. She also reports that last night she did have some burning with urination, denies any today. She denies any other complaints. Patient vital signs are stable, afebrile. Physical exam displayed very mild suprapubic tenderness. Laboratory investigations are unremarkable. Urine is negative. HCG Quant is 630,000. Ultrasound display findings compatible with a viable of approximately 9 weeks and 4 days with a heart rate of 167. Blood type is O+. Patient will be discharged will follow up with primary care provider and switchboard manager, will return to ER if condition worsens. Case discussed with Dr. Reina. - Lab Data Result diagrams: 04/08/20 15:10 04/08/20 15:10 Lab Results 04/08/20 04/08/20 04/08/20 Range/Units 15:10 15:10 15:10 WBC 5.8 (3.8-10.6) k/uL RBC 4.64 (3.80-5.40) m/uL Hgb 14.3 (11.4-16.0) gm/dL Hct 40.5 (34.0-46.0) % MCV 87.3 (80.0-100.0) fL MCH 30.8 (25.0-35.0) pg MCHC 35.3 (31.0-37.0) g/dL RDW 12.0 (11.5-15.5) % Plt Count 222 (150-450) k/uL Neutrophils % 73 % Lymphocytes % 20 % Monocytes % 4 % Eosinophils % 1 % Basophils % 0 % Neutrophils # 4.2 (1.3-7.7) k/uL Lymphocytes # 1.2 (1.0-4.8) k/uL Monocytes # 0.2 (0-1.0) k/uL Eosinophils # 0.1 (0-0.7) k/uL Basophils # 0.0 (0-0.2) k/uL Sodium 138 (137-145) mmol/L Potassium 3.9 (3.5-5.1) mmol/L Chloride 107 (98-107) mmol/L Carbon Dioxide 20 L (22-30) mmol/L Anion Gap 11 mmol/L BUN 7 (7-17) mg/dL Creatinine 0.44 L (0.52-1.04) mg/dL Est GFR (CKD-EPI)AfAm >90 (>60 ml/min/1.73 sqM) Est GFR (CKD-EPI)NonAf >90 (>60 ml/min/1.73 sqM) Glucose 93 (74-99) mg/dL Calcium 9.9 (8.4-10.2) mg/dL Total Bilirubin 0.2 (0.2-1.3) mg/dL AST 23 (14-36) U/L ALT 13 (4-34) U/L Alkaline Phosphatase 74 (38-126) U/L Total Protein 7.2 (6.3-8.2) g/dL Albumin 4.2 (3.5-5.0) g/dL HCG, Quant 52672.8 mIU/mL Urine Color Urine Appearance (Clear) Urine pH (5.0-8.0) Ur Specific Ma[place] (1.001-1.035) Urine Protein (Negative) Urine Glucose (UA) (Negative) Urine Ketones (Negative) Urine Blood (Negative) Urine Nitrite (Negative) Urine Bilirubin (Negative) Urine Urobilinogen (<2.0) mg/dL Ur Leukocyte Esterase (Negative) Blood Type O Positive Blood Type Recheck O Pos Bld Type Recheck Status No 04/08/20 Range/Units 15:10 WBC (3.8-10.6) k/uL RBC (3.80-5.40) m/uL Hgb (11.4-16.0) gm/dL Hct (34.0-46.0) % MCV (80.0-100.0) fL MCH (25.0-35.0) pg MCHC (31.0-37.0) g/dL RDW (11.5-15.5) % Plt Count (150-450) k/uL Neutrophils % % Lymphocytes % % Monocytes % % Eosinophils % % Basophils % % Neutrophils # (1.3-7.7) k/uL Lymphocytes # (1.0-4.8) k/uL Monocytes # (0-1.0) k/uL Eosinophils # (0-0.7) k/uL Basophils # (0-0.2) k/uL Sodium (137-145) mmol/L Potassium (3.5-5.1) mmol/L Chloride (98-107) mmol/L Carbon Dioxide (22-30) mmol/L Anion Gap mmol/L BUN (7-17) mg/dL Creatinine (0.52-1.04) mg/dL Est GFR (CKD-EPI)AfAm (>60 ml/min/1.73 sqM) Est GFR (CKD-EPI)NonAf (>60 ml/min/1.73 sqM) Glucose (74-99) mg/dL Calcium (8.4-10.2) mg/dL Total Bilirubin (0.2-1.3) mg/dL AST (14-36) U/L ALT (4-34) U/L Alkaline Phosphatase (38-126) U/L Total Protein (6.3-8.2) g/dL Albumin (3.5-5.0) g/dL HCG, Quant mIU/mL Urine Color Light Yellow Urine Appearance Clear (Clear) Urine pH 6.0 (5.0-8.0) Ur Specific [place] 1.004 (1.001-1.035) Urine Protein Negative (Negative) Urine Glucose (UA) Negative (Negative) Urine Ketones Negative (Negative) Urine Blood Negative (Negative) Urine Nitrite Negative (Negative) Urine Bilirubin Negative (Negative) Urine Urobilinogen <2.0 (<2.0) mg/dL Ur Leukocyte Esterase Negative (Negative) Blood Type Blood Type Recheck Bld Type Recheck Status Disposition Clinical Impression: Vaginal bleeding Disposition: HOME SELF-CARE Condition: Stable Instructions (If sedation given, give patient instructions): Threatened Miscarriage (ED) Additional Instructions: Follow-up with primary care provider and MANAGER TRANSPORTATION tomorrow. Return to ER if condi tion worsens in any way. Is patient prescribed a controlled substance at d/c from ED?: No Referrals: Carlos Rowe MD [Primary Care Provider] - 1-2 days
[2020-04-08 15:24] LABS: Appearance,Urine Clear (Clear); Bilirubin,Urine Negative (Negative); Blood,Urine Negative (Negative); Color,Urine Light Yellow; Glucose,Urine (UA) Negative (Negative); Ketones,Urine Negative (Negative); Leukocyte Esterase,Urine Negative (Negative); Nitrite,Urine Negative (Negative); Protein,Urine Negative (Negative); Specific Gravity,Urine 1.004 (1.001-1.035); Urobilinogen,Urine <2.0 mg/dL (<2.0)
[2020-04-08 15:29] LABS: Basophils % (A) 0 %; Eosinophils # (A) 0.1 k/uL (0-0.7); Eosinophils % (A) 1 %; HCT 40.5 % (34.0-46.0); HGB 14.3 gm/dL (11.4-16.0); Lymphocytes # (A) 1.2 k/uL (1.0-4.8); Lymphocytes % (A) 20 %; MCH 30.8 pg (25.0-35.0); MCHC 35.3 g/dL (31.0-37.0); MCV 87.3 fL (80.0-100.0); Mean Platelet Volume 8.8; Monocytes # (A) 0.2 k/uL (0-1.0); Monocytes % (A) 4 %; Neutrophils # (A) 4.2 k/uL (1.3-7.7); Neutrophils % (A) 73 %; Platelet Count 222 k/uL (150-450); RBC 4.64 m/uL (3.80-5.40); WBC 5.8 k/uL (3.8-10.6)
[2020-04-08 15:34] LABS: ALT 13 U/L (4-34); AST 23 U/L (14-36); African American GFR (CKD) >90 (>60 ml/min/1.73 sqM); Albumin 4.2 g/dL (3.5-5.0); Alkaline Phosphatase 74 U/L (38-126); Anion Gap 11 mmol/L; Blood Urea Nitrogen 7 mg/dL (7-17); Calcium 9.9 mg/dL (8.4-10.2); Carbon Dioxide 20 mmol/L (22-30); Chloride 107 mmol/L (98-107); Glucose 93 mg/dL (74-99); Non-African American GFR(CKD) >90 (>60 ml/min/1.73 sqM); Potassium 3.9 mmol/L (3.5-5.1); Sodium 138 mmol/L (137-145); Total Bilirubin 0.2 mg/dL (0.2-1.3); Total Protein 7.2 g/dL (6.3-8.2)
--- NOTE | 2020-04-08 16:01 | US ---
EXAMINATION TYPE: Transabdominal DATE OF EXAM: 04/08/2020 3:47 PM COMPARISON: 04/02/2020 CLINICAL HISTORY: pain. Pain EXAM PERFORMED: Transabdominal (TA) EXAM MEASUREMENTS: GESTATIONAL AGE / DATING Physician Established: (9 weeks/0 days) EDC: 11/11/2020 Dates by LMP: (10 weeks/3 days) EDC: 11/03/2020 Dates by First Scan: (8 weeks/1 days) EDC: 11/11/2020 Dates by Current Scan for: (9 weeks/4 days) EDC: 11/07/2020 MATERNAL ANATOMY Uterus: 12.8 x 6.8 x 8.5 cm Right Ovary: 3.7 x 2.4 x 2.1 cm Left Ovary: 3.7 x 2.1 x 2.7 cm Post CDS / Adnexa: wnl Presence of free fluid: no Presence of corpus luteal cyst: no Presence of subchorionic bleed: no GESTATION / SURVEY CRL: 2.7 cm (9 weeks/4 days) Yolk Sac (normal less than 6mm): 3 mm Heart Rate: 167 bpm Rhythm: Normal IUP: Viable IUP Beta HcG (if available): Not available at this time IMPRESSION: Findings compatible with a viable of approximately 9 weeks 4 days with a heart rate 167 bpm .
[2020-04-08 16:20] LABS: HCG,Quantitative Serum 63068.8 mIU/mL
[2020-04-08 17:19] VITALS: BP 125/82; PULSE 92; RESP 16
== END 2020-04-08 17:19 | disposition home or self-care (01) ==
LOC: EC 14:31
DX: O20.9 Hemorrhage in early pregnancy, unspecified (principal); O99.281 Endocrine, nutritional and metabolic diseases complicating pregnancy, first trimester; E07.9 Disorder of thyroid, unspecified; O99.611 Diseases of the digestive system complicating pregnancy, first trimester; Z3A.09 9 weeks gestation of pregnancy; Z86.14 Personal history of Methicillin resistant Staphylococcus aureus infection; K21.9 Gastro-esophageal reflux disease without esophagitis; Z79.890 Hormone replacement therapy; Z80.9 Family history of malignant neoplasm, unspecified
CPT/HCPCS: 36415; 76801; 80053; 81003; 84702; 85025; 86900; 86901; 99284

== ENCOUNTER 2020-07-04 12:10 | Outpatient (CLI) | payer OTHER ==
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
[2020-07-04 14:18] VITALS: BP 118/74; PULSE 83; RESP 16; TEMP 97.3
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
== END 2020-07-04 13:47 | disposition home or self-care (01) ==
LOC: FBPOP 12:10
PROVIDERS: ATTEND Obstetrics & Gynecology
DX: O99.89 Other specified diseases and conditions complicating pregnancy, childbirth and the puerperium (principal); Z3A.21 21 weeks gestation of pregnancy
CPT/HCPCS: 76805; 99213

== ENCOUNTER 2020-10-13 21:25 | Outpatient (CLI) | payer OTHER ==
[2020-10-13] MEDS ORDERED: LACTATED RINGERS 1,000 ML IV SCH (22:00)
[2020-10-13 22:16] LABS: Appearance,Urine Clear (Clear); Bacteria,Urine Rare /hpf; Bilirubin,Urine Negative (Negative); Blood,Urine Negative (Negative); Color,Urine Yellow; Glucose,Urine (UA) Negative (Negative); Ketones,Urine 3+ (Negative); Leukocyte Esterase,Urine Trace (Negative); Mucus,Urine Many /hpf; Nitrite,Urine Negative (Negative); Protein,Urine 1+ (Negative); RBC,Urine 2 /hpf (0-5); Specific Gravity,Urine 1.027 (1.001-1.035); Squamous Epithelial Cell,Urine 2 /hpf (0-4); Urobilinogen,Urine <2.0 mg/dL (<2.0); WBC,Urine 5 /hpf (0-5)
[2020-10-13 22:25] LABS: Basophils # (A) 0.1 k/uL (0-0.2); Basophils % (A) 1 %; Eosinophils # (A) 0.1 k/uL (0-0.7); Eosinophils % (A) 0 %; HCT 39.5 % (34.0-46.0); HGB 13.8 gm/dL (11.4-16.0); Lymphocytes # (A) 2.6 k/uL (1.0-4.8); Lymphocytes % (A) 16 %; MCH 30.6 pg (25.0-35.0); MCV 87.4 fL (80.0-100.0); Mean Platelet Volume 10.1; Monocytes # (A) 0.5 k/uL (0-1.0); Monocytes % (A) 3 %; Neutrophils # (A) 12.7 k/uL (1.3-7.7); Neutrophils % (A) 79 %; Platelet Count 178 k/uL (150-450); RBC 4.52 m/uL (3.80-5.40); RDW 12.2 % (11.5-15.5); WBC 16.2 k/uL (3.8-10.6)
[2020-10-13 22:37] LABS: ALT 14 U/L (4-34); AST 27 U/L (14-36); African American GFR (CKD) >90 (>60 ml/min/1.73 sqM); Blood Urea Nitrogen 9 mg/dL (7-17); LDH 431 U/L (313-618); Non-African American GFR(CKD) >90 (>60 ml/min/1.73 sqM); Uric Acid 4.2 mg/dL (3.7-7.4)
[2020-10-13 22:39] LABS: Creatinine,Urine Random 256.3 mg/dL
[2020-10-13 22:39] LABS: Creatinine,Urine Random 257.5 mg/dL
[2020-10-13 22:43] LABS: Protein/Creatinine Ratio,Urine 0.039
[2020-10-13 23:12] VITALS: BP 142/95; PULSE 111; RESP 16; TEMP 96.7
--- NOTE | 2020-10-14 08:20 | P.MSEPDOC ---
Presenting Problems - Arrival Data Date of Arrival on Unit: 10/13/20 Time of Arrival on Unit: 21:25 Mode of Transport: Wheelchair - Complaint OB-Reason for Admission/Chief Complaint: Possible Onset of Labor Comment: Patient presents to triage with contractions that started approximately 2 hours ago. States they are about 2-4 minutes apart, denies leaking of fluids, vaginal bleeding or intercourse in the last 24 hours. Medical History - Information : 2 Para: 1 Term: 0 : 1 Abortions: Spontaneous or Elective: 0 Number of Living Children: 1 - Gestational Age Gestational Age by MADAI (wks/days): 35 Weeks and 6 Days - History Complications: Prior Comment: Patient has a history of pre-eclampsia with her last baby, is going to [facility] for this reason. Review of Systems - Review of Systems Constitutional: No problems Breast: No problems ENT: No problems Cardiovascular: No problems Respiratory: No problems Gastrointestinal: No problems Genitourinary: No problems Musculoskeletal: No problems Neurological: No problems Skin: No problems Vital Signs - Temperature Temperature: 96.7 F Temperature Source: Temporal Artery Scan - Pulse Pulse Oximetery Pulse Rate: 111 Pulse Assessment Method: Auscultation - Respirations Respiratory Rate: 16 Oxygen Delivery Method: Room Air - Blood Pressure Sitting Blood Pressure: 142/95 Blood Pressure Mean: 110 Blood Pressure Source: Automatic Cuff Medical Screen Scoring (Pre) - Cervical Exam Dilation: 1-3 cm = 1 Membranes: Intact - Uterine Contractions Frequency: < 36 weeks = 6 Duration: > 40 seconds = 2 Intensity: N/A - Maternal Vital Signs Maternal Temperature: N/A Maternal Blood Pressure: Diastolic > 89 = 1 Signs of Preeclampsia: Headache = 1 Maternal Respirations: N/A - Maternal Trauma Maternal Trauma: N/A - Assessment - Baby A Baseline FHR: 135 Heart Rate - NICHD Category: Category I (Normal) = 0 NST: Reactive Position: N/A Station: N/A - Total Score - Baby A Total Score - Baby A: 11 - Total Score - Baby B Total Score - Baby B: 11 - Total Score - Baby C Total Score - Baby C: 11 - Level of Risk - Baby A Level of Risk - Baby A: High (10+) - Level of Risk - Baby B Level of Risk - Baby B: High (10+) - Level of Risk - Baby C Level of Risk - Baby C: High (10+) Physician Notification (Pre) - Physician Notified Physician Notified Date: 10/13/20 Physician Notified Time: 22:00 New Order Received: Yes - Notification Comment Comment: Orders given to send PIH labs and recheck cervix in one hour, call physician with report. @[id number] Orders given to give patient remainder of fluid 500cc bolus due to 3+ ketones, patient may choose to stay another hour for evaluation or be discharged home with instructions if patient decides to stay and cervix remains unchanged discharge patient home with instructions. If patient stays and cervix changes call physician with report. Disposition - Disposition OB Disposition: Discharge to home, Written follow up instructions reviewed Discharge Date: 10/14/20 Discharge Time: 00:00 I agree with the RN Medical Screening Exam: Yes Risk & Benefit of care provided described in d/c instruction: Yes Diagnosis: FALSE LABOR BEFORE 37 COMPLETED WEEKS OF GEST, THIRD TRI Additional Diagnoses: Gestational hypertension
== END 2020-10-14 | disposition home or self-care (01) ==
LOC: FBPOP 21:25
PROVIDERS: ATTEND Obstetrics & Gynecology
DX: O47.03 False labor before 37 completed weeks of gestation, third trimester (principal); O13.3 Gestational [pregnancy-induced] hypertension without significant proteinuria, third trimester; Z3A.35 35 weeks gestation of pregnancy
CPT/HCPCS: 59025; 81001; 82565; 82570; 83615; 84156; 84450; 84460; 84520; 84550; 85025; 96360; 96361; 99215

== ENCOUNTER 2020-10-26 10:56 | Outpatient (CLI) | payer OTHER, BC ==
[2020-10-26 11:51] VITALS: BP 139/87; PULSE 93; RESP 18; TEMP 97.4
--- NOTE | 2020-10-27 05:23 | P.MSEPDOC ---
Presenting Problems - Arrival Data Date of Arrival on Unit: 10/26/20 Time of Arrival on Unit: 10:56 Mode of Transport: Ambulatory - Complaint OB-Reason for Admission/Chief Complaint: NST Comment: BP check Medical History - Information : 2 Para: 1 Term: 0 : 1 Abortions: Spontaneous or Elective: 0 Number of Living Children: 1 - Gestational Age Gestational Age by MADAI (wks/days): 37 Weeks and 5 Days - History Complications: Prior Comment: HTN in the last week, hx of HTN with last . Review of Systems - Review of Systems Constitutional: No problems Breast: No problems ENT: No problems Cardiovascular: No problems Respiratory: No problems Gastrointestinal: No problems Genitourinary: No problems Musculoskeletal: No problems Neurological: No problems Skin: No problems Vital Signs - Temperature Temperature: 97.4 F Temperature Source: Temporal Artery Scan - Pulse Right Pulse Rate: 93 Pulse Assessment Method: Automatic Cuff - Respirations Respiratory Rate: 18 Oxygen Delivery Method: Room Air O2 Sat by Pulse Oximetry: 100 - Blood Pressure Right Arm Blood Pressure: 139/87 Blood Pressure Mean: 104 Blood Pressure Source: Automatic Cuff Medical Screen Scoring (Pre) - Cervical Exam Dilation: Exam Deferred Effacement: Exam Deferred Membranes: Intact - Uterine Contractions Frequency: N/A Duration: N/A Intensity: N/A - Maternal Vital Signs Maternal Temperature: N/A Maternal Blood Pressure: N/A Signs of Preeclampsia: N/A Maternal Respirations: N/A - Maternal Trauma Maternal Trauma: N/A - Assessment - Baby A Baseline FHR: 125 Heart Rate - NICHD Category: Category I (Normal) = 0 NST: Reactive Position: N/A Station: N/A - Assessment - Baby C Baseline FHR: 125 Heart Rate - NICHD Category: Category I (Normal) = 0 NST: Reactive Position: N/A Station: N/A - Total Score - Baby A Total Score - Baby A: 0 - Total Score - Baby B Total Score - Baby B: 0 - Total Score - Baby C Total Score - Baby C: 0 - Level of Risk - Baby A Level of Risk - Baby A: Low (0-5) - Level of Risk - Baby B Level of Risk - Baby B: Low (0-5) - Level of Risk - Baby C Level of Risk - Baby C: Low (0-5) Physician Notification (Pre) - Physician Notified Physician Notified Date: 10/26/20 Physician Notified Time: 11:21 New Order Received: Yes - Notification Comment Comment: RN reported to Dr. Saha NST results, reactive and WNL. Pt is feeling some contractions, but they are still tolerable. Pt states that she does feel some increased pressure as well. Pt is scheduled for IOL on Monday 10/[address] Pike. Pt to DC home with plan to come in on Wednesday for IOL. Disposition - Disposition OB Disposition: Discharge to home Discharge Date: 10/26/20 Discharge Time: 11:30 I agree with the RN Medical Screening Exam: Yes Risk & Benefit of care provided described in d/c instruction: Yes Diagnosis: GESTATIONAL HTN W/O SIGNIFICANT PROTEINURIA, THIRD TRIMESTER
== END 2020-10-26 11:30 | disposition home or self-care (01) ==
LOC: FBPOP 10:56
PROVIDERS: ATTEND Obstetrics & Gynecology
DX: O13.3 Gestational [pregnancy-induced] hypertension without significant proteinuria, third trimester (principal); Z3A.37 37 weeks gestation of pregnancy
CPT/HCPCS: 59025; 99213

== ENCOUNTER 2020-10-27 14:50 | Inpatient (IN) | payer OTHER, BC ==
[2020-10-27] MEDS ORDERED: METHYLERGONOVINE 0.2 MG/ML 1 ML AMP IM PRN (15:13)
[2020-10-27] MEDS ORDERED: AMPICILLIN 2,000 MG in SODIUM CHLORIDE 0.9% 100 ML IVPB STA (15:13)
[2020-10-27] MEDS ORDERED: TERBUTALINE 1 MG/ML VIAL SQ PRN (15:13)
[2020-10-27] MEDS ORDERED: OXYTOCIN 10 UNIT/ML 1 ML VIAL IM PRN (15:13)
[2020-10-27] MEDS ORDERED: CARBOPROST TROMETHAMINE 250 MCG/ML 1 ML AMP IM PRN (15:13)
[2020-10-27] MEDS ORDERED: LIDOCAINE 0.5% (PF) 5 MG/ML (50 ML SDV) SQ PRN (15:13)
[2020-10-27] MEDS ORDERED: LACTATED RINGERS 1,000 ML IV SCH (15:15)
[2020-10-27] MEDS ORDERED: OXYTOCIN 30 UNITS/500 ML NS 30 UNIT in SALINE 1 500ML.BAG IV SCH (15:15)
[2020-10-27 15:57] LABS: Basophils % (A) 0 %; Eosinophils # (A) 0.1 k/uL (0-0.7); Eosinophils % (A) 1 %; HCT 40.5 % (34.0-46.0); Lymphocytes # (A) 2.2 k/uL (1.0-4.8); Lymphocytes % (A) 20 %; MCH 30.3 pg (25.0-35.0); MCHC 34.5 g/dL (31.0-37.0); MCV 87.6 fL (80.0-100.0); Mean Platelet Volume 10.4; Monocytes # (A) 0.3 k/uL (0-1.0); Monocytes % (A) 3 %; Neutrophils # (A) 8.1 k/uL (1.3-7.7); Neutrophils % (A) 74 %; Platelet Count 167 k/uL (150-450); RBC 4.62 m/uL (3.80-5.40); WBC 10.9 k/uL (3.8-10.6)
[2020-10-27] MEDS ORDERED: HYDROCORTISONE 2.5% RECTAL CREAM 30 GM TUBE RECTAL PRN (18:30)
[2020-10-27] MEDS ORDERED: OXYTOCIN 20 UNITS/1000 ML NS 1,000 ML IV SCH (18:30)
[2020-10-27] MEDS ORDERED: SIMETHICONE 80 MG CHEWABLE PO PRN (18:30)
[2020-10-27] MEDS ORDERED: ZOLPIDEM 5 MG TAB PO PRN (18:30)
[2020-10-27] MEDS ORDERED: diphenhydrAMINE 50 MG CAP PO PRN (18:30)
[2020-10-27] MEDS ORDERED: diphenhydrAMINE 25 MG CAP PO PRN (18:30)
[2020-10-27] MEDS ORDERED: LANOLIN CREAM 5 GM TUBE TOPICAL PRN (18:30)
[2020-10-27] MEDS ORDERED: diphenhydrAMINE 50 MG/ML 1 ML VIAL IVP PRN ×2 (18:30)
[2020-10-27] MEDS ORDERED: BENZOCAINE/MENTHOL SPRAY 1 GM/SPRAY AEROSOL TOPICAL PRN (18:30)
--- NOTE | 2020-10-27 18:36 | P.HPOB ---
History of Present Illness H&P Date: 10/27/20 Chief Complaint: Labor, gestational hypertension 30-year-old presents at 37 weeks and 6 days in active labor. Her cervix was 4-1/2 cm dilated, 80% effaced, and -2 station. She is kevin every 2-3 minutes. heart tones 135 with moderate variability and reactive. She was scheduled for induction of labor this coming week for gestational hypertension with Dr. Pike. Review of Systems All systems: negative Constitutional: Denies chills, Denies fever Eyes: denies blurred vision, denies pain Ears, nose, mouth and throat: Denies headache, Denies sore throat Cardiovascular: Denies chest pain, Denies shortness of breath Respiratory: Denies cough Gastrointestinal: Denies abdominal pain, Denies diarrhea, Denies nausea, Denies vomiting Genitourinary: Denies dysuria, Denies hematuria Musculoskeletal: Denies myalgias Integumentary: Denies pruritus, Denies rash Neurological: Denies numbness, Denies weakness Psychiatric: Denies anxiety, Denies depression Endocrine: Denies fatigue, Denies weight change Past Medical History Past Medical History: GERD/Reflux, Hypertension, Thyroid Disorder Additional Past Medical History / Comment(s): Obstetric history: As was a vaginal delivery. This is her second . She has had care with Dr Pike since 9 weeks. O+, abs neg, Rub nonimmune, RPR NR, Hep B neg, GBS negative. neg quad. normal anatomy US. Followed for gestational hypertension with Dr. Pike and maternal medicine. History of Any Multi-Drug Resistant Organisms: MRSA Date of last positivie culture/infection: 03/2010 MDRO Source:: Left axilla Additional Past Surgical History / Comment(s): dilated esophagus with EGD Past Anesthesia/Blood Transfusion Reactions: No Reported Reaction Past Psychological History: No Psychological Hx Reported Smoking Status: Never smoker Past Alcohol Use History: None Reported Past Drug Use History: None Reported - Past Family History Mother Family Medical History: Cancer Medications and Allergies Home Medications Medication Instructions Recorded Confirmed Type Levothyroxine Sodium 88 mcg PO DAILY 07/14/18 10/27/20 History Pnv,Calcium 72/Iron/Folic Acid 1 each PO DAILY 07/14/18 10/27/20 History [ Plus Tablet] Aspirin [Children's Aspirin] 81 mg PO DAILY 07/04/20 10/27/20 History Allergies Allergy/AdvReac Type Severity Reaction Status Date / Time No Known Allergies Allergy Verified 10/26/20 11:10 Exam Osteopathic Statement: *. No significant issues noted on an osteopathic structural exam other than those noted in the History and Physical/Consult. Vital Signs Temp Pulse Resp BP Pulse Ox 10/27/20 18:26 97.2 F L 89 18 141/86 10/27/20 15:16 98.4 F 115 H 18 145/89 98 Intake and Output 10/27/20 10/27/20 10/27/20 06:59 14:59 22:59 Output Total 100 Balance -100 Output: Estimated Blood Loss 100 Other: Weight 99.337 kg 99.337 kg Heart: Regular rate and rhythm Lungs: Clear to auscultation bilaterally Abdomen: Soft, nontender Extremities: Negative Homans sign Results Result Diagrams: 10/27/20 15:40 Abnormal Lab Results - Last 24 Hours (Table) 10/27/20 Range/Units 15:40 WBC 10.9 H (3.8-10.6) k/uL Neutrophils # 8.1 H (1.3-7.7) k/uL Assessment and Plan (1) Gestational hypertension Current Visit: No Status: Acute Code(s): O13.9 - GESTATIONAL HTN W/O SIGNIFICANT PROTEINURIA, UNSP TRIMESTER SNOMED Code(s): 437659625 (2) Normal labor Current Visit: Yes Status: Acute Code(s): O80 - ENCOUNTER FOR FULL-TERM UNCOMPLICATED DELIVERY; Z37.9 - OUTCOME OF DELIVERY, UNSPECIFIED SNOMED Code(s): 62851524 Plan: 1. Admit to family place 2. Expectant management and Anticipate normal vaginal delivery 3. Patient is GBS negative with Dr. Pike had plan to treat her with ampicillin anyway since she was positive with the last . Since the patient is expecting this I will start antibiotics.
--- NOTE | 2020-10-27 18:37 | P.PROBDLV ---
Vaginal Delivery Note - . Vaginal Delivery Note: 30-year-old presents at 37 weeks and 6 days in active labor. Her cervix was 4-1/2 cm dilated, 80% effaced, and -2 station. She is kevin every 2-3 minutes. heart tones 135 with moderate variability and reactive. When she was about 6 cm dilated at 1721 amniotomy was performed and clear fluid was noted. Her cervix was completely dilated at 1806. She pushed, and delivered a viable female infant over intact perineum at 1811. Head delivered OA, nuchal cord 1 easily reduced, anterior shoulder delivered gentle downward guidance followed by posterior shoulder and rest of body. Nose and mouth bulb suctioned, cord clamped and cut, infant placed mother's abdomen. Apgars 8, 9, weight 8 lbs. 6 oz. Placenta delivered spontaneously, intact with three-vessel cord at 1814. Vagina, cervix, perineum inspected. First-degree right lateral laceration was repaired with 3-0 Vicryl. Estimated blood loss 100 mL. Mother and baby in stable condition.
[2020-10-27] MEDS: IBUPROFEN 600 MG TAB PO PRN (18:38)
[2020-10-27] MEDS ORDERED: AMPICILLIN 1,000 MG in SODIUM CHLORIDE 0.9% 50 ML IVPB SCH (19:14)
[2020-10-27] MEDS: SENNOSIDES-DOCUSATE SODIUM 1 EACH TAB PO SCH (21:11)
[2020-10-27] MEDS: ACETAMINOPHEN TAB 325 MG TAB PO PRN (21:11)
[2020-10-28] MEDS: IBUPROFEN 600 MG TAB PO PRN ×4 (02:44→20:21)
[2020-10-28 06:01] LABS: Basophils % (A) 0 %; Eosinophils # (A) 0.1 k/uL (0-0.7); Eosinophils % (A) 1 %; HCT 37.5 % (34.0-46.0); HGB 13.1 gm/dL (11.4-16.0); Lymphocytes # (A) 2.6 k/uL (1.0-4.8); Lymphocytes % (A) 19 %; MCH 30.9 pg (25.0-35.0); MCHC 34.9 g/dL (31.0-37.0); MCV 88.3 fL (80.0-100.0); Monocytes # (A) 0.6 k/uL (0-1.0); Monocytes % (A) 5 %; Neutrophils # (A) 9.8 k/uL (1.3-7.7); Neutrophils % (A) 73 %; Platelet Count 140 k/uL (150-450); RBC 4.25 m/uL (3.80-5.40); RDW 12.3 % (11.5-15.5); WBC 13.4 k/uL (3.8-10.6)
--- NOTE | 2020-10-28 06:54 | P.PNOBGVD ---
Subjective - Subjective Principal diagnosis: S/P NVD PPD #1 Interval history: Pt seen and examined. Denies N/V, F/C, CP, SOB, calf pain. Patient reports: Reports appetite normal, Reports voiding normally, Reports pain well controlled, Reports ambulating normally : doing well Objective - Latest Vital Signs Latest vital signs: Vital Signs Temp Pulse Resp BP Pulse Ox 10/28/20 04:00 97.8 F 84 18 127/84 98 10/27/20 23:25 98.4 F 88 18 134/88 97 10/27/20 20:26 97.9 F 86 17 126/71 99 10/27/20 19:51 97.9 F 80 17 133/68 99 10/27/20 19:26 98.0 F 78 17 132/67 98 10/27/20 19:11 98.2 F 97 16 139/84 98 10/27/20 18:45 97.4 F L 87 18 139/84 10/27/20 18:26 97.2 F L 89 18 141/86 10/27/20 15:16 98.4 F 115 H 18 145/89 98 Intake and Output 10/27/20 10/27/20 10/28/20 14:59 22:59 06:59 Intake Total 600 Output Total 100 Balance -100 600 Intake: Oral 600 Output: Estimated Blood Loss 100 Other: # Voids 1 1 Weight 99.337 kg 99.337 kg - Exam Lungs: bilateral: normal Chest: Normal S1, Normal S2 Extremities: Present: normal Abdomen: Present: normal appearance, soft Uterus: Present: normal, firm - Labs Labs: Abnormal Lab Results - Last 24 Hours (Table) 10/27/20 10/28/20 Range/Units 15:40 05:43 WBC 10.9 H 13.4 H (3.8-10.6) k/uL Plt Count 140 L (150-450) k/uL Neutrophils # 8.1 H 9.8 H (1.3-7.7) k/uL Assessment and Plan (1) Gestational hypertension Current Visit: No Status: Resolved Code(s): O13.9 - GESTATIONAL HTN W/O SIGNIFICANT PROTEINURIA, UNSP TRIMESTER SNOMED Code(s): 547135201 (2) Normal labor Current Visit: Yes Status: Resolved Code(s): O80 - ENCOUNTER FOR FULL-TERM UNCOMPLICATED DELIVERY; Z37.9 - OUTCOME OF DELIVERY, UNSPECIFIED SNOMED Code(s): 30777554 (3) Normal vaginal delivery Current Visit: Yes Status: Acute Code(s): O80 - ENCOUNTER FOR FULL-TERM UNCOMPLICATED DELIVERY SNOMED Code(s): 62199356 Plan: 1. cont pp care 2. possible D/C home later today
[2020-10-28] MEDS: SENNOSIDES-DOCUSATE SODIUM 1 EACH TAB PO SCH ×2 (08:17→22:30)
[2020-10-29] MEDS: ACETAMINOPHEN TAB 325 MG TAB PO PRN (05:33)
[2020-10-29] MEDS: IBUPROFEN 600 MG TAB PO PRN ×2 (07:32→15:14)
[2020-10-29] MEDS: SENNOSIDES-DOCUSATE SODIUM 1 EACH TAB PO SCH (07:32)
[2020-10-29 08:17] VITALS: TEMP 98
--- NOTE | 2020-10-29 08:47 | P.DS ---
Providers Date of admission: 10/27/20 15:37 Expected date of discharge: 10/29/20 Attending physician: Emely Pike Primary care physician: Emely Pike [facility] Course: This is a 30-year-old female 2 para 1 at 37-6/7 weeks who presented in active labor. She delivered vaginally a viable female with scores of 8 at 1 minute and 9 at 5 minutes and infant weight of 8 lbs. 6 oz. Her course has been uncomplicated. She is breast-feeding. Lochia is decreasing. Pain is been fairly well-controlled. Baby is on a bili light. Vital signs are stable. Abdomen is soft with fundus firm and nontender. Extremities show negative Homans. Impression is status post vaginal delivery day #1. Plan is to discharge home today. Routine instructions are given. She will be given a prescription for ibuprofen. She is advised to continue checking her blood pressures at home and to notify me if she has any elevated blood pressures. She is advised to follow up in the office in 6 weeks for a check. She states she has a breast pump. Procedures: Spontaneous vaginal delivery of a viable female infant on 10/27/2020 Patient Condition at Discharge: Stable Plan - Discharge Summary New Discharge Prescriptions: New Ibuprofen [Motrin] 600 mg PO Q6HR PRN #30 tab PRN Reason: Mild Pain Or Fever >= 100.5 No Action Pnv,Calcium 72/Iron/Folic Acid [ Plus Tablet] 1 each PO DAILY Levothyroxine Sodium 88 mcg PO DAILY Aspirin [Children's Aspirin] 81 mg PO DAILY Discharge Medication List Levothyroxine Sodium 88 mcg PO DAILY 07/14/18 [History] Pnv,Calcium 72/Iron/Folic Acid [ Plus Tablet] 1 each PO DAILY 07/14/18 [History] Aspirin [Children's Aspirin] 81 mg PO DAILY 07/04/20 [History] Ibuprofen [Motrin] 600 mg PO Q6HR PRN #30 tab 10/28/20 [Rx] Follow up Appointment(s)/Referral(s): Emely Pike DO [Primary Care Provider] - 6 Weeks Discharge Disposition: HOME SELF-CARE
[2020-10-29 15:57] VITALS: BP 130/79; PULSE 79; RESP 16
== END 2020-10-29 18:45 | disposition home or self-care (01) | DRG 807 ==
LOC: FBPOP 14:50 → 4FBP 15:37
PROVIDERS: ADMIT Obstetrics & Gynecology; ATTEND Obstetrics & Gynecology
PROC: 10E0XZZ Delivery of Products of Conception, External Approach (ICD-10-PCS; principal; 2020-10-27)
PROC: 0HQ9XZZ Repair Perineum Skin, External Approach (ICD-10-PCS; principal; 2020-10-27)
DX: O13.4 Gestational [pregnancy-induced] hypertension without significant proteinuria, complicating childbirth (principal); Z37.0 Single live birth; O69.81X0 Labor and delivery complicated by cord around neck, without compression, not applicable or unspecified; K21.9 Gastro-esophageal reflux disease without esophagitis; O99.62 Diseases of the digestive system complicating childbirth; O99.284 Endocrine, nutritional and metabolic diseases complicating childbirth; E07.9 Disorder of thyroid, unspecified; O70.0 First degree perineal laceration during delivery; Z3A.37 37 weeks gestation of pregnancy; Z79.82 Long term (current) use of aspirin; Z79.890 Hormone replacement therapy; Z86.14 Personal history of Methicillin resistant Staphylococcus aureus infection
CPT/HCPCS: 59025; 85025; 86850; 86900; 86901; 99213

== ENCOUNTER 2020-10-31 21:35 | Outpatient (CLI) | payer OTHER, BC ==
[2020-10-31 22:01] VITALS: TEMP 96.2
[2020-10-31 22:21] VITALS: RESP 20
[2020-10-31 22:21] LABS: Basophils # (A) 0.1 k/uL (0-0.2); Basophils % (A) 1 %; Eosinophils # (A) 0.3 k/uL (0-0.7); Eosinophils % (A) 4 %; HCT 42.3 % (34.0-46.0); HGB 14.3 gm/dL (11.4-16.0); Lymphocytes # (A) 3.4 k/uL (1.0-4.8); Lymphocytes % (A) 37 %; MCH 30.2 pg (25.0-35.0); MCHC 33.8 g/dL (31.0-37.0); MCV 89.5 fL (80.0-100.0); Mean Platelet Volume 8.9; Monocytes # (A) 0.4 k/uL (0-1.0); Monocytes % (A) 4 %; Neutrophils # (A) 4.8 k/uL (1.3-7.7); Neutrophils % (A) 51 %; Platelet Count 207 k/uL (150-450); RBC 4.73 m/uL (3.80-5.40); RDW 12.5 % (11.5-15.5); WBC 9.3 k/uL (3.8-10.6)
[2020-10-31 22:29] LABS: ALT 25 U/L (4-34); AST 33 U/L (14-36); African American GFR (CKD) >90 (>60 ml/min/1.73 sqM); Blood Urea Nitrogen 7 mg/dL (7-17); LDH 519 U/L (313-618); Non-African American GFR(CKD) >90 (>60 ml/min/1.73 sqM); Uric Acid 4.5 mg/dL (3.7-7.4)
[2020-10-31 22:37] LABS: Appearance,Urine Clear (Clear); Bilirubin,Urine Negative (Negative); Blood,Urine Trace (Negative); Color,Urine Yellow; Glucose,Urine (UA) Negative (Negative); Ketones,Urine Negative (Negative); Leukocyte Esterase,Urine Negative (Negative); Mucus,Urine Rare /hpf; Nitrite,Urine Negative (Negative); Protein,Urine Negative (Negative); RBC,Urine <1 /hpf (0-5); Specific Gravity,Urine 1.016 (1.001-1.035); Urobilinogen,Urine <2.0 mg/dL (<2.0); WBC,Urine 1 /hpf (0-5)
[2020-10-31 22:54] LABS: Creatinine,Urine Random 98.2 mg/dL
[2020-10-31 22:55] LABS: Creatinine,Urine Random 99.1 mg/dL; Protein/Creatinine Ratio,Urine 0.091
[2020-10-31] MEDS ORDERED: LABETALOL 200 MG TAB PO STA (23:08)
[2020-10-31 23:26] VITALS: BP 152/94; PULSE 68
== END 2020-10-31 23:35 | disposition home or self-care (01) ==
LOC: FBPOP 21:35
PROVIDERS: ATTEND Obstetrics & Gynecology
DX: O13.3 Gestational [pregnancy-induced] hypertension without significant proteinuria, third trimester (principal); Z3A.37 37 weeks gestation of pregnancy
CPT/HCPCS: 81001; 82565; 82570; 83615; 84156; 84450; 84460; 84520; 84550; 85025; 99213

== ENCOUNTER 2022-07-24 15:57 | Emergency (ER) | payer BC, OTHER ==
[2022-07-24 16:06] VITALS: TEMP 97.9
[2022-07-24] MEDS ORDERED: SODIUM CHLORIDE 0.9% 1,000 ML IV STA (16:20)
[2022-07-24 16:50] LABS: Basophils % (A) 1 %; Eosinophils # (A) 0.1 k/uL (0-0.7); Eosinophils % (A) 1 %; HGB 14.6 gm/dL (11.4-16.0); Lymphocytes # (A) 2.6 k/uL (1.0-4.8); Lymphocytes % (A) 33 %; MCH 29.1 pg (25.0-35.0); MCHC 33.9 g/dL (31.0-37.0); MCV 85.7 fL (80.0-100.0); Mean Platelet Volume 8.4; Monocytes # (A) 0.3 k/uL (0-1.0); Monocytes % (A) 4 %; Neutrophils # (A) 4.7 k/uL (1.3-7.7); Neutrophils % (A) 60 %; Platelet Count 244 k/uL (150-450); RBC 5.02 m/uL (3.80-5.40); RDW 11.8 % (11.5-15.5); WBC 7.9 k/uL (3.8-10.6)
[2022-07-24 17:12] LABS: Appearance,Urine Clear (Clear); Bilirubin,Urine Negative (Negative); Blood,Urine Negative (Negative); Color,Urine Colorless; Glucose,Urine (UA) Negative (Negative); Ketones,Urine Negative (Negative); Leukocyte Esterase,Urine Negative (Negative); Nitrite,Urine Negative (Negative); PH, Urine 6.5 (5.0-8.0); Protein,Urine Negative (Negative); Specific Gravity,Urine 1.004 (1.001-1.035); Urobilinogen,Urine <2.0 mg/dL (<2.0)
--- NOTE | 2022-07-24 17:28 | US ---
EXAMINATION TYPE: Transabdominal DATE OF EXAM: 07/24/2022 5:11 PM COMPARISON: NONE CLINICAL HISTORY: LLQ, rule out ectopic. Pt states LLQ pain and light vaginal bleeding that started t shaista EXAM PERFORMED: Transvaginal (TV) and Transabdominal (TA) EXAM MEASUREMENTS: GESTATIONAL AGE / DATING Physician Established: Not yet established Dates by LMP: (6 weeks/0 days) EDC: 03/19/2023 Dates by First Scan: No previous this is first scan Dates by Current Scan for: (5 weeks/6 days) EDC: 03/20/2023 MATERNAL ANATOMY Uterus: 9.0 x 5.0 x 6.5 cm Right Ovary: 3.0 x 1.9 x 2.4 cm Left Ovary: 2.2 x 1.0 x 1.8 cm Post CDS / Adnexa: Multiple vessels visualized within left adnexa suggesting possible pelvic congesti on? Presence of free fluid: Small amount of free fluid Presence of corpus luteal cyst: Right Ovary= 1.9 x 1.4 x 1.8 cm Presence of subchorionic bleed: No GESTATION / SURVEY CRL: Too early to visualize MSD: 1.5 cm (5 weeks/6 days) Yolk Sac (normal less than 6mm): 3mm IUP: Possible early IUP Date of LMP: 06/12/2022 Beta HcG (if available): Not available at this time Possible early IUP/ Possible pelvic congestion left adnexa, small amount of free fluid IMPRESSION: 1. Findings may reflect early intrauterine although I cannot exclude ectopic . Cor relate clinically with serial beta hCG and/or ultrasound.
[2022-07-24] MEDS ORDERED: ACETAMINOPHEN TAB 500 MG TAB PO STA (17:32)
--- NOTE | 2022-07-24 18:08 | ED ---
Female Urogenital HPI - General Chief complaint: Vaginal Bleeding Stated complaint: Flank pain(6 weeks preg.) Time Seen by Provider: 07/24/22 16:12 Source: patient Mode of arrival: ambulatory Limitations: no limitations - History of Present Illness Initial comments: Patient is a A1 female approximately 6 weeks who presents to the emergency department with a chief complaint of vaginal bleeding. Patient states since this morning every time she wipes during urination she notices pink streaks of blood on the toilet paper. There are no clots. Patient also reports left lower abdominal pain which began this morning. There is no radiation. Pain ranges in severity from mild to moderate. Patient took Tylenol for pain with little relief. Denies fever, chills, vomiting, burning with urination, blood in urine. Reports nausea which is unchanged from her nausea in . Reports normal bowel movements, last one was this morning, nonbloody. No diarrhea. 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 Pike. Patient spoke with Dr. Saha this morning who told her to come to the emergency department to rule out ectopic . Patient does not have history of ectopic . Last Menstrual Period: 06/10/22 - Related Data Home Medications Medication Instructions Recorded Confirmed Levothyroxine Sodium 88 mcg PO DAILY 07/14/18 07/24/22 Vit No.180/Iron/Folic 1 tab PO HS 07/14/18 07/24/22 [ Plus Vitamin-Mineral] Polymyxin B-Trimeth Sulf Ophth 1 drop BOTH EYES QID 07/24/22 07/24/22 [Polytrim Opthalmic] Allergies Allergy/AdvReac Type Severity Reaction Status Date / Time Penicillins Allergy Rash/Hives Verified 07/24/22 18:31 Review of Systems ROS Statement: Those systems with pertinent positive or pertinent negative responses have been documented in the HPI. ROS Other: All systems not noted in ROS Statement are negative. Past Medical History Past Medical History: GERD/Reflux, Hypertension, Thyroid Disorder Additional Past Medical History / Comment(s): Obstetric history: As was a vaginal delivery. This is her second . She has had care with Dr Pike since 9 weeks. O+, abs neg, Rub nonimmune, RPR NR, Hep B neg, GBS negative. neg quad. normal anatomy US. Followed for gestational hypertension with Dr. Pike and maternal medicine. History of Any Multi-Drug Resistant Organisms: MRSA Date of last positivie culture/infection: 03/2010 MDRO Source:: Left axilla Additional Past Surgical History / Comment(s): dilated esophagus with EGD Past Anesthesia/Blood Transfusion Reactions: No Reported Reaction Past Psychological History: No Psychological Hx Reported Smoking Status: Never smoker - Past Family History Mother Family Medical History: Cancer General Exam Limitations: no limitations General appearance: alert, in no apparent distress Head exam: Present: atraumatic, normocephalic, normal inspection Respiratory exam: Present: normal lung sounds bilaterally. Absent: respiratory distress, wheezes, rales, rhonchi, stridor Cardiovascular Exam: Present: regular rate, normal rhythm, normal heart sounds. Absent: systolic murmur, diastolic murmur, rubs, gallop, clicks GI/Abdominal exam: Present: soft, tenderness (mild in LLQ), normal bowel sounds. Absent: distended, guarding, rebound, rigid Neurological exam: Present: alert, oriented X3, CN II-XII intact Psychiatric exam: Present: normal affect, normal mood Skin exam: Present: warm, dry, intact, normal color. Absent: rash Course Vital Signs 07/24/22 07/24/22 16:01 18:32 Temperature 97.9 F Pulse Rate 83 87 Respiratory 24 16 Rate Blood Pressure 143/84 144/89 O2 Sat by Pulse 100 100 Oximetry Medical Decision Making - Medical Decision Making This is a 32-year-old female at 6 weeks who presents for evaluation of possible ectopic . Patient well-appearing and in no apparent distress. Vitals stable. Afebrile. There is mild tenderness in the left lower quadrant. The abdomen is soft and there is no guarding. Laboratory studies obtained. Hemoglobin is normal at 14.6. Urinalysis does not indicate infection or blood. ultrasound shows multiple vessels visualized within the left adnexa suggesting possible pelvic congestion. There is a small amount of free fluid. The yolk sac is visualized at 3 mm. Findings may early reflect intrauterine although ectopic could not be excluded. Discussed with Dr. Adamson. With yolk sac seen on ultrasound there is little concern for ectopic . Results discussed with patient. Patient will be discharged with prescription for repeat beta-hCG in 48 hours. RhoGAM is not indicated. She will schedule an appointment with her [employer]NAGER OF [employer]PER[employer] who she will see next week. Return parameters discussed. Dr. Ross is my attending. - Lab Data Result diagrams: 07/24/22 16:36 07/24/22 17:43 Lab Results 07/24/22 07/24/22 07/24/22 Range/Units 16:36 16:36 16:41 WBC 7.9 (3.8-10.6) k/uL RBC 5.02 (3.80-5.40) m/uL Hgb 14.6 (11.4-16.0) gm/dL Hct 43.0 (34.0-46.0) % MCV 85.7 (80.0-100.0) fL MCH 29.1 (25.0-35.0) pg MCHC 33.9 (31.0-37.0) g/dL RDW 11.8 (11.5-15.5) % Plt Count 244 (150-450) k/uL MPV 8.4 Neutrophils % 60 % Lymphocytes % 33 % Monocytes % 4 % Eosinophils % 1 % Basophils % 1 % Neutrophils # 4.7 (1.3-7.7) k/uL Lymphocytes # 2.6 (1.0-4.8) k/uL Monocytes # 0.3 (0-1.0) k/uL Eosinophils # 0.1 (0-0.7) k/uL Basophils # 0.0 (0-0.2) k/uL Sodium (137-145) mmol/L Potassium (3.5-5.1) mmol/L Chloride (98-107) mmol/L Carbon Dioxide (22-30) mmol/L Anion Gap mmol/L BUN (7-17) mg/dL Creatinine (0.52-1.04) mg/dL Est GFR (CKD-EPI)AfAm (>60 ml/min/1.73 sqM) Est GFR (CKD-EPI)NonAf (>60 ml/min/1.73 sqM) Glucose (74-99) mg/dL Calcium (8.4-10.2) mg/dL Total Bilirubin (0.2-1.3) mg/dL AST (14-36) U/L ALT (4-34) U/L Alkaline Phosphatase (38-126) U/L Total Protein (6.3-8.2) g/dL Albumin (3.5-5.0) g/dL HCG, Quant mIU/mL Urine Color Colorless Urine Appearance Clear (Clear) Urine pH 6.5 (5.0-8.0) Ur Specific [place] 1.004 (1.001-1.035) Urine Protein Negative (Negative) Urine Glucose (UA) Negative (Negative) Urine Ketones Negative (Negative) Urine Blood Negative (Negative) Urine Nitrite Negative (Negative) Urine Bilirubin Negative (Negative) Urine Urobilinogen <2.0 (<2.0) mg/dL Ur Leukocyte Esterase Negative (Negative) Blood Type O Positive Blood Type Recheck O Pos Bld Type Recheck Status No Antibody Screen NEGATIVE Spec Expiration Date 07/27/2022 - 233307/24/22 Range/Units 17:43 WBC (3.8-10.6) k/uL RBC (3.80-5.40) m/uL Hgb (11.4-16.0) gm/dL Hct (34.0-46.0) % MCV (80.0-100.0) fL MCH (25.0-35.0) pg MCHC (31.0-37.0) g/dL RDW (11.5-15.5) % Plt Count (150-450) k/uL MPV Neutrophils % % Lymphocytes % % Monocytes % % Eosinophils % % Basophils % % Neutrophils # (1.3-7.7) k/uL Lymphocytes # (1.0-4.8) k/uL Monocytes # (0-1.0) k/uL Eosinophils # (0-0.7) k/uL Basophils # (0-0.2) k/uL Sodium 140 (137-145) mmol/L Potassium 4.2 (3.5-5.1) mmol/L Chloride 106 (98-107) mmol/L Carbon Dioxide 21 L (22-30) mmol/L Anion Gap 13 mmol/L BUN 9 (7-17) mg/dL Creatinine 0.49 L (0.52-1.04) mg/dL Est GFR (CKD-EPI)AfAm >90 (>60 ml/min/1.73 sqM) Est GFR (CKD-EPI)NonAf >90 (>60 ml/min/1.73 sqM) Glucose 77 (74-99) mg/dL Calcium 8.7 (8.4-10.2) mg/dL Total Bilirubin 0.1 L (0.2-1.3) mg/dL AST 20 (14-36) U/L ALT 15 (4-34) U/L Alkaline Phosphatase 86 (38-126) U/L Total Protein 6.5 (6.3-8.2) g/dL Albumin 3.9 (3.5-5.0) g/dL HCG, Quant 29032.9 mIU/mL Urine Color Urine Appearance (Clear) Urine pH (5.0-8.0) Ur Specific [place] (1.001-1.035) Urine Protein (Negative) Urine Glucose (UA) (Negative) Urine Ketones (Negative) Urine Blood (Negative) Urine Nitrite (Negative) Urine Bilirubin (Negative) Urine Urobilinogen (<2.0) mg/dL Ur Leukocyte Esterase (Negative) Blood Type Blood Type Recheck Bld Type Recheck Status Antibody Screen Spec Expiration Date Disposition Clinical Impression: Threatened miscarriage in early , Vaginal bleeding Disposition: HOME SELF-CARE Condition: Good Instructions (If sedation given, give patient instructions): Ectopic (DC), Threatened Miscarriage (ED) Additional Instructions: Take prescription to local lab 48-72 hours for repeat beta hCG level. Follow-up with [employer] in one to 2 days to schedule appointment for next week. Return to the emergency department if you experience new, concerning, or worsening symptoms. Is patient prescribed a controlled substance at d/c from ED?: No Referrals: Carlos Rowe MD [Primary Care Provider] - 1-2 days
[2022-07-24 18:17] LABS: ALT 15 U/L (4-34); AST 20 U/L (14-36); African American GFR (CKD) >90 (>60 ml/min/1.73 sqM); Albumin 3.9 g/dL (3.5-5.0); Alkaline Phosphatase 86 U/L (38-126); Anion Gap 13 mmol/L; Blood Urea Nitrogen 9 mg/dL (7-17); Calcium 8.7 mg/dL (8.4-10.2); Carbon Dioxide 21 mmol/L (22-30); Chloride 106 mmol/L (98-107); Glucose 77 mg/dL (74-99); Non-African American GFR(CKD) >90 (>60 ml/min/1.73 sqM); Potassium 4.2 mmol/L (3.5-5.1); Sodium 140 mmol/L (137-145); Total Bilirubin 0.1 mg/dL (0.2-1.3); Total Protein 6.5 g/dL (6.3-8.2)
[2022-07-24 18:36] VITALS: BP 144/89; PULSE 87; RESP 16
[2022-07-24 18:59] LABS: HCG,Quantitative Serum 15371.9 mIU/mL
== END 2022-07-24 19:08 | disposition home or self-care (01) ==
LOC: EC 15:57
DX: O20.0 Threatened abortion (principal); K21.9 Gastro-esophageal reflux disease without esophagitis; I10 Essential (primary) hypertension; E07.9 Disorder of thyroid, unspecified; Z88.0 Allergy status to penicillin; Z3A.01 Less than 8 weeks gestation of pregnancy
CPT/HCPCS: 36415; 76801; 76817; 80053; 81003; 84702; 85025; 86850; 86900; 86901; 96360; 99284

== ENCOUNTER → 2022-07-27 | Outpatient (CLI) | payer BC | END | disposition home or self-care (01) | LOC: LABWHC1 09:49 | PROVIDERS: ATTEND Physician Assistant | DX: O20.0 Threatened abortion (principal); Z3A.00 Weeks of gestation of pregnancy not specified | CPT/HCPCS: 36415; 84702 ==

== ENCOUNTER → 2022-09-07 | Outpatient (CLI) | payer BC ==
[2022-09-07 18:08] LABS: Basophils # (A) 0.04 X 10*3/uL (0.00-0.10); Basophils % (A) 0.4 %; Eosinophils # (A) 0.09 X 10*3/uL (0.04-0.35); HGB 13.8 g/dL (12.0-15.0); Immature Grans, Automated 0.4 %; Lymphocytes # (A) 2.31 X 10*3/uL (0.90-5.00); Lymphocytes % (A) 25.2 %; MCH 28.7 pg (27.0-32.0); MCHC 32.9 g/dL (32.0-37.0); MCV 87.3 fL (80.0-97.0); Mean Platelet Volume 12.1 fL (9.5-12.2); Monocytes % (A) 4.4 %; NRBC Per 100 WBC 0 /100 WBCS (0.0-0.0); Neutrophils # (A) 6.27 X 10*3/uL (1.80-7.70); Neutrophils % (A) 68.6 %; Platelet Count 224 X 10*3/uL (140-440); RBC 4.81 X 10*6/uL (4.10-5.20); RDW 13.2 % (11.5-14.5); WBC 9.15 X 10*3/uL (4.50-10.00)
== END | disposition home or self-care (01) ==
LOC: LABPAT 10:51
PROVIDERS: ATTEND Obstetrics & Gynecology
DX: Z01.818 Encounter for other preprocedural examination (principal)
CPT/HCPCS: 36415; 85025

== ENCOUNTER 2022-09-08 10:43 | Day surgery (SDC) | payer BC ==
[2022-09-07 11:38] VITALS: BMI 27.8
--- NOTE | 2022-09-07 17:37 | P.HPOB ---
History of Present Illness H&P Date: 09/07/22 Chief Complaint: Missed This is a 32 y.o. female, 4, para 2, with a LMP of 03/17/2022 who presents for suction D&C for missed at 11-2/7 weeks on ultrasound performed 09/07/2022. She should have been measuring 12-5/7 weeks and previous ultrasound on 08/27/2022 showed a viable fetus at 11-1/7 weeks. Patient had previously had spotting earlier in the , but this stopped. She now complains of more intense lower cramping. 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 She would like chromosomal testing on tissue due to this and the fact that this is her 2nd miscarriage in a row. Her blood type is O+. OB Hx: . History of 2 vaginal deliveries at 36 and 37 weeks complicated by gestational hypertension/pre-eclampsia. [employer] Hx: No history of STDs. 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 Review of Systems Constitutional: Denies chills, Denies fever Eyes: denies blurred vision, denies pain Ears, nose, mouth and throat: Denies headache, Denies sore throat Cardiovascular: Denies chest pain, Denies shortness of breath Respiratory: Denies cough Gastrointestinal: Reports abdominal pain, Reports heartburn Genitourinary: Reports pelvic pain, Reports Musculoskeletal: Reports low back pain Integumentary: Denies pruritus, Denies rash Neurological: Denies numbness, Denies weakness Psychiatric: Denies anxiety, Denies depression Past Medical History Past Medical History: GERD/Reflux, Hypertension, Thyroid Disorder Additional Past Medical History / Comment(s): LMP 06/10/22- states spotting with some pain., hypothroid, hx IBS., states hypertension with previous 2 's. History of Any Multi-Drug Resistant Organisms: MRSA Date of last positivie culture/infection: 03/2010 MDRO Source:: Left axilla Past Surgical History: Cholecystectomy Additional Past Surgical History / Comment(s): dilated esophagus with EGD Past Anesthesia/Blood Transfusion Reactions: No Reported Reaction Past Psychological History: No Psychological Hx Reported Smoking Status: Never smoker Past Alcohol Use History: None Reported Past Drug Use History: None Reported - Past Family History Mother Family Medical History: Cancer Additional Family Medical History / Comment(s): STATES GRANDMOTHER HAS CLOTTING DISORDER WITH PEDRO FILTER. Medications and Allergies Home Medications Medication Instructions Recorded Confirmed Type Levothyroxine Sodium 88 mcg PO DAILY 07/14/18 07/24/22 History Vit No.180/Iron/Folic 1 tab PO HS 07/14/18 07/24/22 History [ Plus Vitamin-Mineral] Polymyxin B-Trimeth Sulf Ophth 1 drop BOTH EYES QID 07/24/22 07/24/22 History [Polytrim Opthalmic] Allergies Allergy/AdvReac Type Severity Reaction Status Date / Time Penicillins Allergy Rash/Hives Verified 09/07/22 11:22 Exam Osteopathic Statement: *. No significant issues noted on an osteopathic structural exam other than those noted in the History and Physical/Consult. Intake and Output 09/07/22 09/07/22 09/07/22 06:59 14:59 22:59 Other: Weight 85.729 kg HEENT: within normal limits Heart: regular rate and rhythm Lungs: clear to auscultation bilaterally Abdomen: soft, mild tenderness lower abdomen Pelvic: uterus sl. enlarged, , mildly tender, no adnexal masses or tenderness Extremities: neg. Juliano's Assessment and Plan (1) Missed Status: Acute Code(s): O02.1 - MISSED SNOMED Code(s): 27542489 Plan: Will proceed with suction dilatation and curettage. Patient does want tissue sent for chromosomal analysis. I have discussed the risks, benefits, and alternative therapies for the above- mentioned procedure and for both sedation/anesthesia as well as necessary blood products administration, if indicated, as they pertain to this patient. The patient has indicated her understanding and acceptance of the risks and procedures discussed.
[~2022-09-08 10:43] MED LIST: Pre Op ABX Message 1 EACH MISC MISCELLANE ONE
[2022-09-08] MEDS ORDERED: HYDROmorphone 0.5 MG/0.5 ML SYRINGE IVP PRN (10:55)
[2022-09-08] MEDS ORDERED: LIDOCAINE 1% (10MG/ML) FOR IV START INTRADERMA PRN (10:55)
[2022-09-08] MEDS ORDERED: LACTATED RINGERS 1,000 ML IV SCH (10:55)
[2022-09-08 11:12] VITALS: TEMP 97.7
[2022-09-08] MEDS ORDERED: ONDANSETRON 4 MG/2 ML VIAL ONE (11:23)
[2022-09-08] MEDS ORDERED: DEXAMETHASONE SOD PHOSPHATE 4 MG/ML 1 ML VIAL IVP ONE (11:23)
[2022-09-08] MEDS ORDERED: fentaNYL (PF) 50 MCG/ML 2 ML AMP ONE (12:13)
[2022-09-08] MEDS ORDERED: LIDOCAINE 2% INJ 20 MG/ML (2 ML VIAL) ONE (12:13)
[2022-09-08] MEDS ORDERED: KETOROLAC 15 MG/ML 1 ML VIAL ONE (12:13)
[2022-09-08] MEDS ORDERED: HYDROmorphone (PF) 1 MG/ML ONE (12:13)
[2022-09-08] MEDS ORDERED: PROPOFOL 10 MG/ML 20 ML VIAL IV ONE (12:13)
[2022-09-08] MEDS ORDERED: MIDAZOLAM 2 MG/2 ML VIAL ONE (12:13)
--- NOTE | 2022-09-08 12:27 | P.OP ---
Date of Procedure: 09/08/22 Preoperative Diagnosis: Missed Recurrent miscarriage Postoperative Diagnosis: Same Procedure(s) Performed: Suction dilation and curettage Anesthesia: DELORES Surgeon: Emely Pike Estimated Blood Loss (ml): 10 Pathology: other (Products of conception-for chromosomal analysis) Condition: stable Disposition: same day Indications for Procedure: This is a 32 y.o. female, 4, para 2, with a LMP of 03/17/2022 who presents for suction D&C for missed at 11-2/7 weeks on ultrasound performed 09/07/2022. She should have been measuring 12-5/7 weeks and previous ultrasound on 08/27/2022 showed a viable fetus at 11-1/7 weeks. Patient had previously had spotting earlier in the , but this stopped. She now complains of more intense lower cramping. 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 She would like chromosomal testing on tissue due to this and the fact that this is her 2nd miscarriage in a row. Her blood type is O+. Operative Findings: Uterus is sounded to 16 cm. No adnexal masses are palpated. A large amount of products of conception are obtained. Description of Procedure: The patient is taken to the operating room where she is placed in the dorsal lithotomy position. She is prepped and draped in the normal sterile fashion. Her bladder is drained with a catheter and then removed. Examination is performed under anesthesia. Uterus is found to be enlarged slightly, with no adnexal masses palpated. Uterus is anteverted. Next the weighted speculum was placed in the patient's vagina. A right angle retractor was used to visualize the anterior lip of the cervix. The anterior lip of the cervix is grasped with a single-tooth tenaculum. Next the uterus was sounded to 16 cm. Cervix is then gently dilated with Quinn and then Hegar dilators until a 12 mm suction curet could be placed. Suction curetting was performed with a large amount of tissue obtained. Next a large curet was gently introduced and sharp curettage was performed with no further tissue obtained. Suction curetting was performed one further time to remove any blood clot from the endometrium. The tubing was cleared with normal saline. Next the single-tooth tenaculum was removed from the anterior lip the cervix. Pressure was applied with a ring forcep. No active bleeding was noted after the ring forcep was removed. Minimal bleeding was noted. All instruments are removed from the vagina. Next the tissue was according to the Anora kit instructions. The specimen was washed with normal saline and no formalin was used. All sponge and needle counts are correct and the patient is taken to recovery room in stable condition.
[2022-09-08 13:59] VITALS: RESP 18
[2022-09-08 14:26] LABS: Glucose,Whole Blood 90 mg/dL (70-110)
[2022-09-08 15:11] VITALS: BP 124/81; PULSE 71
== END 2022-09-08 15:37 | disposition home or self-care (01) ==
LOC: OR 10:43
PROVIDERS: ATTEND Obstetrics & Gynecology
DX: O02.1 Missed abortion (principal); O99.611 Diseases of the digestive system complicating pregnancy, first trimester; O26.21 Pregnancy care for patient with recurrent pregnancy loss, first trimester; Z3A.11 11 weeks gestation of pregnancy
CPT/HCPCS: 86900; 86901; 86850; 59820; J2250; J1100; J2405; J3010; J1170; J1885; J2704; J2001; 88305

== ENCOUNTER → 2023-01-14 | Outpatient (CLI) | payer BC | END | disposition home or self-care (01) | LOC: LABWHC1 08:08 | PROVIDERS: ATTEND Obstetrics & Gynecology | DX: N91.2 Amenorrhea, unspecified (principal); N92.6 Irregular menstruation, unspecified; N94.89 Other specified conditions associated with female genital organs and menstrual cycle | CPT/HCPCS: 36415; 84702 ==

== ENCOUNTER → 2023-01-18 | Outpatient (CLI) | payer BC | END | disposition home or self-care (01) | LOC: LABWHC1 07:54 | PROVIDERS: ATTEND Obstetrics & Gynecology | DX: Z34.01 Encounter for supervision of normal first pregnancy, first trimester (principal); R10.2 Pelvic and perineal pain; Z3A.00 Weeks of gestation of pregnancy not specified | CPT/HCPCS: 36415; 84702 ==

== ENCOUNTER → 2023-01-20 | Outpatient (CLI) | payer BC | END | disposition home or self-care (01) | LOC: LABWHC1 07:20 | PROVIDERS: ATTEND Obstetrics & Gynecology | DX: N92.6 Irregular menstruation, unspecified (principal) | CPT/HCPCS: 36415; 84702 ==

== ENCOUNTER → 2023-06-05 | Outpatient (CLI) | payer BC ==
[2023-06-05 10:43] LABS: Creatinine,Urine Random 21.8 mg/dL; Protein/Creatinine Ratio,Urine 0.55
[2023-06-05 13:23] LABS: HCT 36.9 % (37.2-46.3); HGB 12.2 d/dL (12.0-15.0); MCHC 33.1 d/dL (32.0-37.0); MCV 90.9 FL (80.0-97.0); Mean Platelet Volume 11.7 FL (9.5-12.2); NRBC Per 100 WBC 0 X 10*3/uL (0.00-0.01); Platelet Count 188 X 10*3/uL (140-440); RBC 4.06 X 10*6/uL (4.10-5.20); RDW 12.8 % (11.5-14.5); WBC 8.42 X 10*3/uL (4.50-10.00)
[2023-06-05 13:25] LABS: ALT 11 U/L (8-44); AST 15 U/L (13-35); Blood Urea Nitrogen 6.2 mg/dL (9.0-27.0); LDH 137 U/L (120-246); Uric Acid 3.3 mg/dL (2.9-7.7)
[2023-06-05 13:42] LABS: Appearance,Urine Clear (Clear); Bilirubin,Urine Negative (Negative); Blood,Urine Negative (Negative); Color,Urine Yellow (Yellow); Ketones,Urine Negative (Negative); Nitrite,Urine Negative (Negative); PH, Urine 7.5; Specific Gravity,Urine 1.005 (1.001-1.030); Urobilinogen,Urine 0.2 E.U./DL
== END | disposition home or self-care (01) ==
LOC: LABWHC1 08:41
PROVIDERS: ATTEND Obstetrics & Gynecology
DX: O13.9 Gestational [pregnancy-induced] hypertension without significant proteinuria, unspecified trimester (principal); Z3A.00 Weeks of gestation of pregnancy not specified
CPT/HCPCS: 36415; 81003; 82565; 82570; 83615; 84156; 84450; 84460; 84520; 84550; 85027

== ENCOUNTER 2023-06-10 11:40 | Outpatient (CLI) | payer BC ==
[2023-06-10 12:35] VITALS: BP 141/80; PULSE 89; RESP 17; TEMP 98.2
--- NOTE | 2023-06-10 21:57 | P.MSEPDOC ---
Presenting Problems - Arrival Data Date of Arrival on Unit: 06/10/23 Time of Arrival on Unit: 11:40 Mode of Transport: Ambulatory - Complaint OB-Reason for Admission/Chief Complaint: Decreased Movement Comment: pt presents to triage with decreased movment since yesterday afternoon Medical History - Information : 5 Para: 2 Term: 1 : 1 Abortions: Spontaneous or Elective: 2 Number of Living Children: 2 - Gestational Age Gestational Age by MADAI (wks/days): 24 Weeks and 5 Days Review of Systems - Review of Systems Constitutional: No problems Breast: No problems ENT: No problems Cardiovascular: No problems Respiratory: No problems Gastrointestinal: No problems Genitourinary: No problems Musculoskeletal: No problems Neurological: No problems Skin: No problems Vital Signs - Temperature Temperature: 98.2 F Temperature Source: Temporal Artery Scan - Pulse Right Brachial Pulse Rate: 89 Pulse Assessment Method: Automatic Cuff - Respirations Respiratory Rate: 17 Oxygen Delivery Method: Room Air O2 Sat by Pulse Oximetry: 98 - Blood Pressure Right Arm Blood Pressure: 141/80 Blood Pressure Mean: 100 Medical Screen Scoring - Uterine Contractions Frequency From (mins): 0 - Assessment - Baby A Baseline FHR: 140 Heart Rate - NICHD Category: Category I (Normal) Physician Notification - Physician Notified Physician Notified Date: 06/10/23 Physician Notified Time: 12:15 Physician: Boubacar Adamson - Notification Comment Comment: cat 1 FHT's, positive movement since arrival in triage, pt discharged home, has appt with [facility] in 2 weeks, and Dr. Pike in 4 weeks Maternal Triage Index - Maternal Triage Index Presenting for scheduled procedure w/no complaint: No - Stat/Priority 1 Stat Priority 1: No - Urgent/Priority 2 Urgent Priority 2: Yes Provider Notified: Boubacar Adamson Provider Notified Time: 12:15 Criteria Met for Priority 2: pt presents to triage with decreased movment since yesterday afternoon Disposition - Disposition OB Disposition: Triage, Discharge to home, Written follow up instructions reviewed Discharge Date: 06/10/23 Discharge Time: 12:25 I agree with the RN Medical Screening Exam: Yes Case reviewed; plan agreed upon as documented in EMR&OBIX.: Yes Diagnosis: DECREASED MOVEMENTS, SECOND TRIMESTER, FETUS 1
== END 2023-06-10 12:25 | disposition home or self-care (01) ==
LOC: FBPOP 11:40
PROVIDERS: ATTEND Obstetrics & Gynecology
DX: O36.8121 Decreased fetal movements, second trimester, fetus 1 (principal); Z3A.24 24 weeks gestation of pregnancy; Z88.0 Allergy status to penicillin
CPT/HCPCS: 99213

== ENCOUNTER 2023-08-22 05:32 | Outpatient (CLI) | payer BC ==
[2023-08-22 07:17] VITALS: BP 133/92; PULSE 97; RESP 16; TEMP 96.9
--- NOTE | 2023-08-22 13:18 | P.MSEPDOC ---
Presenting Problems - Arrival Data Date of Arrival on Unit: 08/22/23 Time of Arrival on Unit: 05:32 Mode of Transport: Ambulatory - Complaint OB-Reason for Admission/Chief Complaint: Possible Onset of Labor Medical History - Information : 5 Para: 2 Term: 2 : 0 Abortions: Spontaneous or Elective: 2 Number of Living Children: 2 - Gestational Age Gestational Age by MADAI (wks/days): 35 Weeks and 1 Days Review of Systems - Review of Systems Constitutional: No problems Breast: No problems ENT: No problems Cardiovascular: No problems Respiratory: No problems Gastrointestinal: No problems Genitourinary: No problems Musculoskeletal: No problems Neurological: No problems Skin: No problems Vital Signs - Temperature Temperature: 96.9 F Temperature Source: Temporal Artery Scan - Pulse Pulse Oximetery Pulse Rate: 97 Pulse Assessment Method: Pulse Oximetry - Respirations Respiratory Rate: 16 Oxygen Delivery Method: Room Air O2 Sat by Pulse Oximetry: 100 - Blood Pressure Right Arm Sitting Blood Pressure: 133/92 Blood Pressure Mean: 105 Blood Pressure Source: Automatic Cuff Medical Screen Scoring - Cervical Exam Dilation (cm): 3 Effacement (%): 70 Station: -3 Membranes: Intact - Uterine Contractions Frequency From (mins): 4 Frequency To (mins): 5 Duration From (seconds): 60 Duration To (seconds): 80 Intensity: Mild Resting: Soft to palpation - Assessment - Baby A Baseline FHR: 135 Heart Rate - NICHD Category: Category I (Normal) NST: Reactive Physician Notification - Physician Notified Physician Notified Date: 08/22/23 Physician Notified Time: 06:07 Physician: Emely Pike Order Received: Yes - Notification Comment Comment: Dr Pike on unit. Report of B/Ps, FHR, contractins, SVE. Orders to monitor for. an hour and recheck patient received, if no change patient may be discharged home. Maternal Triage Index - Maternal Triage Index Presenting for scheduled procedure w/no complaint: No - Stat/Priority 1 Stat Priority 1: No - Urgent/Priority 2 Urgent Priority 2: No - Prompt/Priority 3 Prompt Priority 3: Yes Criteria Met for Priority 3: Patient of Dr Pike, 35 1/7 weeks, MADAI 09/25/2023, presents to L&D with c/o. contractions every 5 minutes for a couple hours. Patient denies bleeding or loss of. fluid. + setal movement. Patient states she has been seen here and in [facility]. for labor. Patient also sees MFM for high blood pressure but states they are not. treating her B/P until diastolic pressure is consistently greater than 100. Disposition - Disposition OB Disposition: Discharge to home Discharge Date: 08/22/23 Discharge Time: 06:55 I agree with the RN Medical Screening Exam: Yes Case reviewed; plan agreed upon as documented in EMR&OBIX.: Yes Diagnosis: FALSE LABOR BEFORE 37 COMPLETED WEEKS OF GEST, THIRD TRI
== END 2023-08-22 06:55 | disposition home or self-care (01) ==
LOC: FBPOP 05:32
PROVIDERS: ATTEND Obstetrics & Gynecology
DX: O47.03 False labor before 37 completed weeks of gestation, third trimester (principal); Z3A.35 35 weeks gestation of pregnancy; Z88.0 Allergy status to penicillin
CPT/HCPCS: 59025; 99213

== ENCOUNTER 2023-08-24 21:45 | Outpatient (CLI) | payer BC ==
[2023-08-24 23:22] VITALS: BP 125/74; PULSE 100; RESP 17; TEMP 97.3
--- NOTE | 2023-08-26 13:34 | P.MSEPDOC ---
Presenting Problems - Arrival Data Date of Arrival on Unit: 08/24/23 Time of Arrival on Unit: 21:45 Mode of Transport: Ambulatory - Complaint OB-Reason for Admission/Chief Complaint: Decreased Movement Medical History - Information : 5 Para: 2 Term: 2 : 0 Abortions: Spontaneous or Elective: 2 Number of Living Children: 2 - Gestational Age Gestational Age by MADAI (wks/days): 35 Weeks and 3 Days Review of Systems - Review of Systems Constitutional: No problems Breast: No problems ENT: No problems Cardiovascular: No problems Respiratory: No problems Gastrointestinal: No problems Genitourinary: No problems Musculoskeletal: No problems Neurological: No problems Skin: No problems Vital Signs - Temperature Temperature: 97.3 F Temperature Source: Temporal Artery Scan - Pulse Pulse Oximetery Pulse Rate: 100 Pulse Assessment Method: Pulse Oximetry - Respirations Respiratory Rate: 17 Oxygen Delivery Method: Room Air O2 Sat by Pulse Oximetry: 98 - Blood Pressure Right Arm Blood Pressure: 125/74 Blood Pressure Mean: 91 Blood Pressure Source: Automatic Cuff Medical Screen Scoring - Uterine Contractions Resting: Soft to palpation - Assessment - Baby A Baseline FHR: 140 Heart Rate - NICHD Category: Category I (Normal) NST: Reactive Physician Notification - Physician Notified Physician Notified Date: 08/24/23 Physician Notified Time: 22:26 Physician: Emely Pike New Order Received: Yes - Notification Comment Comment: RN spoke with Dr. Pike regarding triage pt c/o DFM. Reported maternal vital. signs, category 1 FHT and reactive NST, two contx traced on monitor but pt states are. not painful, pt has now felt movement and marked 10 movements and pt states she is. scheduled for an NST on Wednesday. Per Dr. Pike, reassure pt she did the right thing by. coming to get checked out, educate pt on when to return and RN can discharge pt home. Maternal Triage Index - Maternal Triage Index Presenting for scheduled procedure w/no complaint: No - Stat/Priority 1 Stat Priority 1: No - Urgent/Priority 2 Urgent Priority 2: Yes Provider Notified: Emely Pike Provider Notified Time: 22:26 Criteria Met for Priority 2: c/o decreased movement Disposition - Disposition OB Disposition: Discharge to home, Written follow up instructions reviewed Discharge Date: 08/24/23 Discharge Time: 22:32 I agree with the RN Medical Screening Exam: Yes Case reviewed; plan agreed upon as documented in EMR&OBIX.: Yes Diagnosis: DECREASED MOVEMENTS, THIRD TRIMESTER, UNSP
== END 2023-08-24 22:32 | disposition home or self-care (01) ==
LOC: FBPOP 21:45
PROVIDERS: ATTEND Obstetrics & Gynecology
DX: O36.8131 Decreased fetal movements, third trimester, fetus 1 (principal); Z3A.35 35 weeks gestation of pregnancy; Z88.0 Allergy status to penicillin
CPT/HCPCS: 59025; 99213

== ENCOUNTER 2023-08-30 16:28 | Outpatient (CLI) | payer BC ==
[2023-08-30 19:25] VITALS: BP 132/88; PULSE 103; RESP 18; TEMP 97.6
--- NOTE | 2023-08-31 08:41 | P.MSEPDOC ---
Presenting Problems - Arrival Data Date of Arrival on Unit: 08/30/23 Time of Arrival on Unit: 16:28 Mode of Transport: Ambulatory - Complaint OB-Reason for Admission/Chief Complaint: Possible Onset of Labor, Dizziness Comment: c/o irregular contractions starting at 1100 and becoming consistantly 7mins apart at 1400. Medical History - Information : 5 Para: 2 Term: 0 : 2 Abortions: Spontaneous or Elective: 2 Number of Living Children: 2 - Gestational Age Gestational Age by MADAI (wks/days): 36 Weeks and 2 Days Review of Systems - Review of Systems Constitutional: No problems Breast: No problems ENT: No problems Cardiovascular: No problems Respiratory: No problems Gastrointestinal: No problems Genitourinary: No problems Musculoskeletal: No problems Neurological: No problems Skin: No problems Vital Signs - Temperature Temperature: 97.6 F Temperature Source: Temporal Artery Scan - Pulse Pulse Oximetery Pulse Rate: 103 Pulse Assessment Method: Pulse Oximetry - Respirations Respiratory Rate: 18 Oxygen Delivery Method: Room Air O2 Sat by Pulse Oximetry: 98 - Blood Pressure Right Arm Blood Pressure: 132/88 Blood Pressure Mean: 102 Blood Pressure Source: Automatic Cuff Medical Screen Scoring - Cervical Exam Dilation (cm): 4.5 Effacement (%): 70 Station: -2 Membranes: Intact - Uterine Contractions Frequency From (mins): 5 Frequency To (mins): 7 Duration From (seconds): 70 Duration To (seconds): 100 Intensity: Mild Resting: Soft to palpation - Assessment - Baby A Baseline FHR: 135 Heart Rate - NICHD Category: Category I (Normal) NST: Reactive Physician Notification - Physician Notified Physician Notified Date: 08/30/23 Physician Notified Time: 17:06 Physician: Emely Pike Order Received: Yes (keep pt for additional hour and recheck cervix.) Maternal Triage Index - Maternal Triage Index Presenting for scheduled procedure w/no complaint: No - Stat/Priority 1 Stat Priority 1: No - Urgent/Priority 2 Urgent Priority 2: No - Prompt/Priority 3 Prompt Priority 3: Yes Criteria Met for Priority 3: pt c/o of contractions every 7mins starting at 1400. Disposition - Disposition OB Disposition: Triage Discharge Date: 08/30/23 Discharge Time: 20:21 I agree with the RN Medical Screening Exam: Yes Case reviewed; plan agreed upon as documented in EMR&OBIX.: Yes Diagnosis: FALSE LABOR BEFORE 37 COMPLETED WEEKS OF GEST, THIRD TRI
== END 2023-08-30 20:21 | disposition home or self-care (01) ==
LOC: FBPOP 16:28
PROVIDERS: ATTEND Obstetrics & Gynecology
DX: O47.03 False labor before 37 completed weeks of gestation, third trimester (principal); O99.893 Other specified diseases and conditions complicating puerperium; R42 Dizziness and giddiness; Z3A.36 36 weeks gestation of pregnancy; Z88.0 Allergy status to penicillin
CPT/HCPCS: 59025; 84112; 99213

== ENCOUNTER 2023-08-31 00:05 | Outpatient (CLI) | payer BC ==
[2023-08-31 01:05] VITALS: BP 130/86; PULSE 88; RESP 16; TEMP 96.9
--- NOTE | 2023-08-31 08:41 | P.MSEPDOC ---
Presenting Problems - Arrival Data Date of Arrival on Unit: 08/31/23 Time of Arrival on Unit: 00:05 Mode of Transport: Ambulatory - Complaint OB-Reason for Admission/Chief Complaint: Possible Onset of Labor Comment: Pt is a with MADAI 09/25/23 here at 36.3. weeks of gestation with c/o continued UC's q2-4min. apart, rated 8-9/10 on a 0-10 scale. Pt was in triage. at this start of this RN's shift, pt reporting. nothing has changed between then and now. UC's have. continued, pt denies LOF and VB. Pt reports +FM. Medical History - Information : 5 Para: 2 Term: 1 : 1 Abortions: Spontaneous or Elective: 2 Number of Living Children: 2 - Gestational Age Gestational Age by MADAI (wks/days): 36 Weeks and 3 Days - History Complications: Prior Comment: GHTN Review of Systems - Review of Systems Constitutional: No problems Breast: No problems ENT: No problems Cardiovascular: No problems Respiratory: No problems Gastrointestinal: No problems Genitourinary: No problems Musculoskeletal: No problems Neurological: No problems Skin: No problems Vital Signs - Temperature Temperature: 96.9 F Temperature Source: Temporal Artery Scan - Pulse Right Pulse Oximetery Pulse Rate: 88 Pulse Assessment Method: Pulse Oximetry - Respirations Respiratory Rate: 16 Oxygen Delivery Method: Room Air O2 Sat by Pulse Oximetry: 98 - Blood Pressure Right Arm Blood Pressure: 130/86 Blood Pressure Mean: 100 Blood Pressure Source: Automatic Cuff Medical Screen Scoring - Cervical Exam Dilation (cm): 5 Effacement (%): 80 Station: -2 Membranes: Intact - Uterine Contractions Frequency From (mins): 2 Frequency To (mins): 5 Duration From (seconds): 60 Duration To (seconds): 90 Intensity: Moderate Resting: Soft to palpation - Assessment - Baby A Baseline FHR: 115 Heart Rate - NICHD Category: Category I (Normal) NST: Reactive Physician Notification - Physician Notified Physician Notified Date: 08/31/23 Physician Notified Time: 00:31 Physician: Dr. Pike New Order Received: Yes - Notification Comment Comment: Dr. Pike notified of pt's return to triage. Report given including maternal and status,. SVE, and pain assessment. POC remains the same as. earlier, pt can stay for observation and/or pain. management, or pt can D/C home - whichever she is. more comfortable with. RN to discuss POC with pt and. her SO. Maternal Triage Index - Maternal Triage Index Presenting for scheduled procedure w/no complaint: No - Stat/Priority 1 Stat Priority 1: No - Urgent/Priority 2 Urgent Priority 2: No - Prompt/Priority 3 Prompt Priority 3: Yes Criteria Met for Priority 3: Pt is a with MADAI 09/25/23 here at 36.3. weeks of gestation with c/o continued UC's q2-4min. apart, rated 8-9/10 on a 0-10 scale. Pt was in triage. at this start of this RN's shift, pt reporting. nothing has changed between then and now. UC's have. continued, pt denies LOF and VB. Pt reports +FM. Disposition - Disposition OB Disposition: Discharge to home Discharge Date: 08/31/23 Discharge Time: 00:42 I agree with the RN Medical Screening Exam: Yes Case reviewed; plan agreed upon as documented in EMR&OBIX.: Yes Diagnosis: FALSE LABOR BEFORE 37 COMPLETED WEEKS OF GEST, THIRD TRI
== END 2023-08-31 00:42 | disposition home or self-care (01) ==
LOC: FBPOP 00:05
PROVIDERS: ATTEND Obstetrics & Gynecology
DX: O47.03 False labor before 37 completed weeks of gestation, third trimester (principal); O13.3 Gestational [pregnancy-induced] hypertension without significant proteinuria, third trimester; Z3A.36 36 weeks gestation of pregnancy; Z88.0 Allergy status to penicillin; Z79.82 Long term (current) use of aspirin; Z79.899 Other long term (current) drug therapy
CPT/HCPCS: 59025; 99213

== ENCOUNTER 2023-09-06 05:59 | Inpatient (IN) | payer BC ==
--- NOTE | 2023-09-05 18:01 | P.HPOB ---
History of Present Illness H&P Date: 09/05/23 Chief Complaint: Pre-eclampsia without severe features This is a 33 y.o. female, 5, para 1,1,2,2, with an estimated date of confinement of 09/25/2023, estimated gestational age of 37-1/7 weeks, who presents for induction of labor due to pre-eclampsia without severe features diagnosed at 24 weeks with elevated protein to creatinine ratio of 0.55. She has experienced mildly elevated blood pressures, but not severe range. She also had significant issues with dizziness and tachycardia throughout her and was seen by Dr. Silva, but she was not placed on medications. At 31 weeks, she was transferred due to labor and received indocin and Betamethasone. She has continued to contract frequently. Most recently she was noted to have low platelets at 120,000. labs: [id number] Hemoglobin-14.1 Blood type-O+ Antibody screen-neg Rubella-immune RPR-NR HIV-NR Hepatitis C-NR Random glucose-84 Hepatitis B surface antigen-neg 1 hr. GTT-125 GBS-neg, but history of + in previous OB Hx: . History of 1 delivery at 36 weeks and 2nd delivery at 37 weeks. She did have pre-eclampsia with both. History of 2 miscarriages. 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 Review of Systems Constitutional: Denies chills, Denies fever Eyes: denies blurred vision, denies pain Ears, nose, mouth and throat: Reports headache, Denies sore throat Cardiovascular: Reports dyspnea on exertion, Reports irregular heart beat, Reports rapid heart beat, Reports shortness of breath, Denies chest pain Respiratory: Denies cough Gastrointestinal: Reports abdominal pain, Denies diarrhea, Denies nausea, Denies vomiting Genitourinary: Reports pelvic pain, Reports Musculoskeletal: Reports low back pain Integumentary: Denies pruritus, Denies rash Neurological: Denies numbness, Denies weakness Psychiatric: Denies anxiety, Denies depression Past Medical History Past Medical History: GERD/Reflux, Hypertension, Supraventricular Tachycardia (SVT), Thyroid Disorder Additional Past Medical History / Comment(s): 2 previous vaginal deliveries; History of Any Multi-Drug Resistant Organisms: MRSA Date of last positivie culture/infection: 03/2010 MDRO Source:: Left axilla Past Surgical History: Cholecystectomy Additional Past Surgical History / Comment(s): dilated esophagus with EGD; D&C Past Anesthesia/Blood Transfusion Reactions: No Reported Reaction Smoking Status: Never smoker Past Alcohol Use History: None Reported Past Drug Use History: None Reported - Past Family History Mother Family Medical History: Cancer Additional Family Medical History / Comment(s): STATES GRANDMOTHER HAS CLOTTING DISORDER WITH PEDRO FILTER. Medications and Allergies Home Medications Medication Instructions Recorded Confirmed Type Levothyroxine Sodium 50 mcg PO DAILY 07/14/18 08/31/23 History Vit No.180/Iron/Folic 1 tab PO HS 07/14/18 08/31/23 History [ Plus Vitamin-Mineral] Aspirin [Children's Aspirin] 81 mg PO DAILY 06/10/23 08/31/23 History Cholecalciferol (Vitamin D3) 1 tab PO DAILY 07/27/23 08/31/23 History [Vitamin D3] Famotidine [Pepcid] 20 mg PO DAILY 07/27/23 08/31/23 History Allergies Allergy/AdvReac Type Severity Reaction Status Date / Time Penicillins Allergy Rash/Hives Verified 08/31/23 00:32 Exam Osteopathic Statement: *. No significant issues noted on an osteopathic structural exam other than those noted in the History and Physical/Consult. HEENT: within normal limits Heart: regular rate and rhythm Lungs: clear to auscultation bilaterally Abdomen: , non-tender Cervix: 4.5 cm/70%/-2 Extremities: neg. Juliano's Assessment and Plan (1) 37 weeks gestation of Status: Acute Code(s): Z3A.37 - 37 WEEKS GESTATION OF SNOMED Code(s): 08855575 (2) Preeclampsia Status: Acute Code(s): O14.90 - UNSPECIFIED PRE-ECLAMPSIA, UNSPECIFIED TRIMESTER SNOMED Code(s): 712481715 (3) Group B Streptococcus carrier, +RV culture, currently Status: Acute Code(s): O99.820 - STREPTOCOCCUS B CARRIER STATE COMPLICATING SNOMED Code(s): 1008880297293 Plan: Proceed with oxytocin induction of labor. Antibiotic prophylaxis for history of GBS. Expectant management.
[2023-09-06] MEDS ORDERED: OXYTOCIN 10 UNIT/ML 1 ML VIAL IM PRN (06:45)
[2023-09-06] MEDS ORDERED: OXYTOCIN 30 UNITS/500 ML NS 30 UNIT in SALINE 1 500ML.BAG IV SCH (06:45)
[2023-09-06] MEDS ORDERED: TRANEXAMIC 1,000 MG/100ML-NACL 1,000 MG in EMPTY BAG 1 BAG IV PRN (06:45)
[2023-09-06] MEDS ORDERED: CARBOPROST TROMETHAMINE 250 MCG/ML 1 ML AMP IM PRN (06:45)
[2023-09-06] MEDS ORDERED: LIDOCAINE 1% (10MG/ML) FOR IV START INTRADERMA PRN (06:45)
[2023-09-06] MEDS ORDERED: TERBUTALINE 1 MG/ML VIAL SQ PRN (06:45)
[2023-09-06] MEDS ORDERED: miSOPROStoL 200 MCG TAB PO PRN (06:45)
[2023-09-06] MEDS ORDERED: LACTATED RINGERS 1,000 ML IV SCH (06:45)
[2023-09-06] MEDS ORDERED: LIDOCAINE 0.5% (PF) 5 MG/ML (50 ML SDV) SQ PRN (06:45)
[2023-09-06] MEDS ORDERED: METHYLERGONOVINE 0.2 MG/ML 1 ML AMP IM PRN (06:45)
[2023-09-06 06:53] LABS: Basophils % (A) 0 %; Eosinophils # (A) 0.1 k/uL (0-0.7); Eosinophils % (A) 1 %; HCT 37.8 % (34.0-46.0); Lymphocytes # (A) 2.4 k/uL (1.0-4.8); Lymphocytes % (A) 29 %; MCH 30.4 pg (25.0-35.0); MCHC 34.4 g/dL (31.0-37.0); MCV 88.4 fL (80.0-100.0); Mean Platelet Volume 10.4; Monocytes # (A) 0.4 k/uL (0-1.0); Monocytes % (A) 5 %; Neutrophils # (A) 5.3 k/uL (1.3-7.7); Neutrophils % (A) 64 %; Platelet Count 142 k/uL (150-450); RBC 4.27 m/uL (3.80-5.40); RDW 12.8 % (11.5-15.5); WBC 8.3 k/uL (3.8-10.6)
[2023-09-06] MEDS ORDERED: CLINDAMYCIN 900 MG in DEXTROSE 5% IN WATER 50 ML IVPB SCH ×2 (07:00)
[2023-09-06 07:26] LABS: Glucose,Urine (UA) Negative (Negative); Ketones,Urine Negative (Negative); Protein,Urine Negative (Negative)
[2023-09-06] MEDS ORDERED: SODIUM CHLORIDE 0.9% 250 ML BAG ONE (08:52)
[2023-09-06] MEDS ORDERED: fentaNYL (PF) 50 MCG/ML 5 ML AMP ONE (08:52)
[2023-09-06] MEDS ORDERED: ROPIVACAINE 5 MG/ML 30 ML VIAL ONE (08:52)
[2023-09-06] MEDS ORDERED: HYDROCORTISONE 2.5% RECTAL CREAM 30 GM TUBE RECTAL PRN (10:21)
[2023-09-06] MEDS ORDERED: ZOLPIDEM 5 MG TAB PO PRN (10:21)
[2023-09-06] MEDS ORDERED: diphenhydrAMINE 25 MG CAP PO PRN (10:21)
[2023-09-06] MEDS ORDERED: BENZOCAINE/MENTHOL SPRAY 1 GM/SPRAY AEROSOL TOPICAL PRN (10:21)
[2023-09-06] MEDS ORDERED: diphenhydrAMINE 50 MG CAP PO PRN (10:21)
[2023-09-06] MEDS ORDERED: SIMETHICONE 80 MG CHEWABLE PO PRN (10:21)
[2023-09-06] MEDS ORDERED: diphenhydrAMINE 50 MG/ML 1 ML VIAL IVP PRN ×2 (10:21)
[2023-09-06] MEDS ORDERED: LANOLIN CREAM 5 GM TUBE TOPICAL PRN (10:21)
[2023-09-06] MEDS: IBUPROFEN 600 MG TAB PO SCH ×2 (12:54→22:58)
--- NOTE | 2023-09-06 13:24 | P.PROBDLV ---
Vaginal Delivery Note - . Vaginal Delivery Note: The patient progressed to complete dilation after oxytocin induction of labor and artificial rupture membranes with clear fluid noted. She did receive epidural anesthesia. Once reaching complete dilation, she began pushing. Infant's head came to a crown. With one further push, the infant's head delivered across the perineum followed by the anterior shoulder. Nose and mouth were bulb suctioned. With one remaining push the remainder the easily delivered and was placed on mother's abdomen. Cord was clamped and cut and infant was taken to warmer for evaluation. A viable male infant is noted with scores of 9 at 1 minute and 9 at 5 minutes and weight of 8 lbs. 5 oz. Placenta delivered shortly thereafter, intact, with a three-vessel cord. Uterus contracted well after oxytocin was given and uterine massage was carried out. Inspection of the perineum revealed no perineal lacerations. Estimated blood loss is approximately 150 mL's. Both mother and are in stable condition.
[2023-09-06] MEDS: SENNOSIDES-DOCUSATE SODIUM 1 EACH TAB PO SCH ×2 (14:18→22:57)
[2023-09-06] MEDS: ACETAMINOPHEN TAB 325 MG TAB PO PRN (18:43)
[2023-09-07] MEDS: ACETAMINOPHEN TAB 325 MG TAB PO PRN ×4 (02:25→19:34)
[2023-09-07] MEDS ORDERED: LABETALOL 5 MG/ML VIAL MDV IVP PRN ×5 (03:13)
[2023-09-07] MEDS ORDERED: MAGNESIUM SULFATE-WATER PMX 4 GM in WATER FOR INJECTION 1 100ML.BAG IVPB ONE (03:13)
[2023-09-07] MEDS ORDERED: hydrALAZINE HCL 20 MG/ML 1 ML VIAL IVP PRN ×3 (03:13)
[2023-09-07] MEDS: MAGNESIUM SULFATE-WATER PMX 20 GM in WATER FOR INJECTION 1 500ML.BAG IV SCH ×2 (04:00→14:10)
[2023-09-07] MEDS: IBUPROFEN 600 MG TAB PO SCH ×3 (05:02→21:30)
[2023-09-07 07:33] LABS: Basophils % (A) 0 %; Eosinophils # (A) 0.1 k/uL (0-0.7); Eosinophils % (A) 1 %; HCT 39.7 % (34.0-46.0); HGB 13.5 gm/dL (11.4-16.0); Lymphocytes # (A) 2.5 k/uL (1.0-4.8); Lymphocytes % (A) 21 %; MCH 30.3 pg (25.0-35.0); Mean Platelet Volume 10.8; Monocytes # (A) 0.4 k/uL (0-1.0); Monocytes % (A) 3 %; Neutrophils # (A) 8.5 k/uL (1.3-7.7); Neutrophils % (A) 73 %; Platelet Count 148 k/uL (150-450); RBC 4.46 m/uL (3.80-5.40); RDW 12.8 % (11.5-15.5); WBC 11.6 k/uL (3.8-10.6)
[2023-09-07 07:40] LABS: ALT 16 U/L (4-34); AST 28 U/L (14-36); African American GFR (CKD) >90 (>60 ml/min/1.73 sqM); Blood Urea Nitrogen 10 mg/dL (7-17); LDH 304 U/L (120-246); Non-African American GFR(CKD) >90 (>60 ml/min/1.73 sqM); Uric Acid 4.3 mg/dL (3.7-7.4)
[2023-09-07 07:45] LABS: INR 0.8 (<1.2); Partial Thromboplastin Time 22.5 sec (22.0-30.0); Prothrombin Time 9.3 sec (10.0-12.5)
[2023-09-07] MEDS: SENNOSIDES-DOCUSATE SODIUM 1 EACH TAB PO SCH ×2 (08:05→19:37)
[2023-09-08] MEDS: MAGNESIUM SULFATE-WATER PMX 20 GM in WATER FOR INJECTION 1 500ML.BAG IV SCH (00:23)
[2023-09-08] MEDS: ACETAMINOPHEN TAB 325 MG TAB PO PRN ×2 (01:28→05:35)
[2023-09-08] MEDS: SENNOSIDES-DOCUSATE SODIUM 1 EACH TAB PO SCH (08:36)
[2023-09-08] MEDS: IBUPROFEN 600 MG TAB PO SCH (08:36)
--- NOTE | 2023-09-08 09:02 | P.DS ---
Providers Date of admission: 09/06/23 05:59 Expected date of discharge: 09/08/23 Attending physician: Emely Pike Primary care physician: Stated None - Discharge Diagnosis(es) (1) 37 weeks gestation of Current Visit: No Status: Acute (2) Preeclampsia Current Visit: No Status: Acute (3) Group B Streptococcus carrier, +RV culture, currently Current Visit: No Status: Acute Hospital Course: This is a 33-year-old female 5 para 2 at 37-2/7 weeks who presented for induction of labor due to preeclampsia without severe features. She underwent oxytocin induction of labor and delivered vaginally a viable male on 09/06/2023. Her course was complicated by increasing blood pressures approximately 12 hours after delivery. She was started on magnesium sulfate seizure prophylaxis for 24 hours. Since this time her blood pressures have been within normal range. She denies any headaches or blurry vision currently. Lochia has been decreasing. Her pain is been fairly well-controlled with ibuprofen. Vital signs are stable. Abdomen is soft with fundus firm and nontender. Extremities show negative Homans. Impression is status post vaginal delivery day #2, gestational hypertension/preeclampsia without severe features-status post magnesium sulfate seizure prophylaxis for 24 hours. Plan is to discharge home today. She will check her blood pressures at home. She has a breast pump at home. She will be given a prescription for ibuprofen. She is advised to follow up in the office in 6 weeks or sooner if necessary. She is advised to call the office if she has any further questions or concerns prior to her appointment time. Procedures: Oxytocin induction of labor Spontaneous vaginal delivery of a viable male on 09/06/2023 Magnesium sulfate seizure prophylaxis Patient Condition at Discharge: Stable Plan - Discharge Summary New Discharge Prescriptions: New Ibuprofen [Motrin] 600 mg PO TID #60 tab Continue Vit No.180/Iron/Folic [ Plus Vitamin-Mineral] 1 tab PO HS Levothyroxine Sodium 50 mcg PO DAILY Famotidine [Pepcid] 20 mg PO DAILY Cholecalciferol (Vitamin D3) [Vitamin D3] 1 tab PO DAILY Discontinued Aspirin [Children's Aspirin] 81 mg PO DAILY Discharge Medication List Levothyroxine Sodium 50 mcg PO DAILY 07/14/18 [History] Vit No.180/Iron/Folic [ Plus Vitamin-Mineral] 1 tab PO HS 07/14/18 [History] Cholecalciferol (Vitamin D3) [Vitamin D3] 1 tab PO DAILY 07/27/23 [History] Famotidine [Pepcid] 20 mg PO DAILY 07/27/23 [History] Ibuprofen [Motrin] 600 mg PO TID #60 tab 09/08/23 [Rx] Follow up Appointment(s)/Referral(s): Emely Pike DO [Doctor of Osteopathic Medicine] - 6 Weeks (PP 10/18/2023 @11:30Am) Activity/Diet/Wound Care/Special Instructions: Instructions 1. Do not begin any exercise program for 3 weeks. 2. Do not resume sexual relations for 3 weeks or longer if uncomfortable. 3. You may take tub baths or showers at any time. 4. You may use tampons if desired after 3 weeks. 5. Keep the area of episiotomy (stitches) clean and dry. 6. If you are not nursing, wear a good fitting, supportive bra during the day and limit fluid intake for at least 1 week to prevent breast engorgement. 7. Call the office, [phone], within the next week to make appointment for your 6 week checkup if it has not already been made. 8. Report any of the following occurrences to the doctor promptly: a. Heavy, excessive bleeding b. Chills, fever c. Burning or frequency of urination d. Pain or redness and breasts if nursing e. Increasing pain or swelling in episiotomy (stitches). In addition to the above instructions, the following additional should be followed: 1. No heavy lifting or straining (exercising) until after 6 week checkup. 2. Keep abdominal incision clean and dry: You may wear a dressing if more comfortable. 3. Make office appointment for 10 days after going home or as instructed by her doctor. Discharge Disposition: HOME SELF-CARE
[2023-09-08 16:27] VITALS: BP 128/77; PULSE 77; RESP 16; TEMP 98.2
== END 2023-09-08 17:47 | disposition home or self-care (01) | DRG 806 ==
LOC: 4FBP 05:59
PROVIDERS: ADMIT Obstetrics & Gynecology; ATTEND Obstetrics & Gynecology
PROC: 10E0XZZ Delivery of Products of Conception, External Approach (ICD-10-PCS; principal; 2023-09-06)
PROC: 10907ZC Drainage of Amniotic Fluid, Therapeutic from Products of Conception, Via Natural or Artificial Opening (ICD-10-PCS; 2023-09-06)
PROC: 3E033VJ Introduction of Other Hormone into Peripheral Vein, Percutaneous Approach (ICD-10-PCS; 2023-09-06)
DX: O11.4 Pre-existing hypertension with pre-eclampsia, complicating childbirth (principal); O98.82 Other maternal infectious and parasitic diseases complicating childbirth; Z37.0 Single live birth; O99.12 Other diseases of the blood and blood-forming organs and certain disorders involving the immune mechanism complicating childbirth; O99.824 Streptococcus B carrier state complicating childbirth; O60.14X0 Preterm labor third trimester with preterm delivery third trimester, not applicable or unspecified; D69.6 Thrombocytopenia, unspecified; O99.62 Diseases of the digestive system complicating childbirth; K21.9 Gastro-esophageal reflux disease without esophagitis; Z3A.37 37 weeks gestation of pregnancy; Z79.82 Long term (current) use of aspirin; Z79.890 Hormone replacement therapy; Z90.49 Acquired absence of other specified parts of digestive tract; Z86.14 Personal history of Methicillin resistant Staphylococcus aureus infection
CPT/HCPCS: 81003; 82565; 83615; 84450; 84460; 84520; 84550; 85025; 85384; 85610; 85730; 86850; 86900; 86901

== ENCOUNTER 2023-09-13 17:25 | Inpatient (IN) | payer BC ==
[2023-09-13] MEDS ORDERED: MAGNESIUM SULFATE-WATER PMX 4 GM in WATER FOR INJECTION 1 100ML.BAG IVPB ONE (18:13)
[2023-09-13] MEDS ORDERED: CALCIUM GLUCONATE 1 GM/10 ML VIAL IV PRN (18:13)
[2023-09-13] MEDS: LACTATED RINGERS 1,000 ML IV SCH (18:56)
[2023-09-13] MEDS: MAGNESIUM SULFATE-WATER PMX 20 GM in WATER FOR INJECTION 1 500ML.BAG IV SCH (19:19)
[2023-09-13 19:25] LABS: Basophils % (A) 0 %; Eosinophils # (A) 0.2 k/uL (0-0.7); Eosinophils % (A) 2 %; HCT 41.1 % (34.0-46.0); HGB 13.6 gm/dL (11.4-16.0); Lymphocytes # (A) 2.8 k/uL (1.0-4.8); Lymphocytes % (A) 38 %; MCH 29.7 pg (25.0-35.0); MCHC 33.1 g/dL (31.0-37.0); MCV 89.8 fL (80.0-100.0); Monocytes # (A) 0.3 k/uL (0-1.0); Monocytes % (A) 5 %; Neutrophils # (A) 3.9 k/uL (1.3-7.7); Neutrophils % (A) 53 %; Platelet Count 226 k/uL (150-450); RBC 4.58 m/uL (3.80-5.40); RDW 12.4 % (11.5-15.5); WBC 7.5 k/uL (3.8-10.6)
[2023-09-13 19:36] LABS: ALT 22 U/L (4-34); AST 23 U/L (14-36); African American GFR (CKD) >90 (>60 ml/min/1.73 sqM); Blood Urea Nitrogen 12 mg/dL (7-17); LDH 207 U/L (120-246); Non-African American GFR(CKD) >90 (>60 ml/min/1.73 sqM); Uric Acid 5.2 mg/dL (3.7-7.4)
[2023-09-13 19:38] LABS: Creatinine,Urine Random 47.5 mg/dL; Protein/Creatinine Ratio,Urine 0.337
[2023-09-13 19:48] LABS: Appearance,Urine Clear (Clear); Bilirubin,Urine Negative (Negative); Blood,Urine Large (Negative); Color,Urine Colorless; Glucose,Urine (UA) Negative (Negative); Ketones,Urine Negative (Negative); Leukocyte Esterase,Urine Large (Negative); Mucus,Urine Rare /hpf; Nitrite,Urine Negative (Negative); Protein,Urine Negative (Negative); RBC,Urine 14 /hpf (0-5); Specific Gravity,Urine 1.012 (1.001-1.035); Squamous Epithelial Cell,Urine <1 /hpf (0-4); Urobilinogen,Urine <2.0 mg/dL (<2.0); WBC,Urine 28 /hpf (0-5)
[2023-09-13] MEDS: LABETALOL 200 MG TAB PO SCH (19:59)
[2023-09-14] MEDS: IBUPROFEN 600 MG TAB PO PRN ×3 (00:20→15:09)
[2023-09-14] MEDS: ACETAMINOPHEN TAB 325 MG TAB PO PRN ×2 (05:15→22:05)
[2023-09-14] MEDS: MAGNESIUM SULFATE-WATER PMX 20 GM in WATER FOR INJECTION 1 500ML.BAG IV SCH ×3 (05:18→23:51)
[2023-09-14] MEDS: LACTATED RINGERS 1,000 ML IV SCH ×2 (05:19→23:51)
--- NOTE | 2023-09-14 07:06 | P.HPOB ---
History of Present Illness H&P Date: 09/14/23 Chief Complaint: pp pre-eclampsia 33-year-old presents a week complaining of increased blood pressures at home despite being on labetalol 200 mg twice a day. Her headache has returned and she feels "off" today. She presented to labor and delivery and had elevated blood pressures of 180s over 100s. Magnesium sulfate was started and she'll be admitted for at least 24 hours of magnesium sulfate treatment. We will also continue her labetalol 200 mg twice a day Review of Systems All systems: negative Constitutional: Denies chills, Denies fever Eyes: denies blurred vision, denies pain Ears, nose, mouth and throat: Reports headache, Denies sore throat Cardiovascular: Denies chest pain, Denies shortness of breath Respiratory: Denies cough Gastrointestinal: Denies abdominal pain, Denies diarrhea, Denies nausea, Denies vomiting Genitourinary: Denies dysuria, Denies hematuria Musculoskeletal: Denies myalgias Integumentary: Denies pruritus, Denies rash Neurological: Denies numbness, Denies weakness Psychiatric: Denies anxiety, Denies depression Endocrine: Denies fatigue, Denies weight change Past Medical History Past Medical History: GERD/Reflux, Hypertension, Thyroid Disorder Additional Past Medical History / Comment(s): 3 vaginal deliveries History of Any Multi-Drug Resistant Organisms: MRSA Date of last positivie culture/infection: 03/2010 MDRO Source:: Left axilla Past Surgical History: Cholecystectomy Additional Past Surgical History / Comment(s): dilated esophagus with EGD, D&C Past Anesthesia/Blood Transfusion Reactions: No Reported Reaction Past Psychological History: No Psychological Hx Reported Smoking Status: Never smoker Past Alcohol Use History: None Reported Past Drug Use History: None Reported - Past Family History Mother Family Medical History: Cancer Additional Family Medical History / Comment(s): STATES GRANDMOTHER HAS CLOTTING DISORDER WITH PEDRO FILTER. Medications and Allergies Home Medications Medication Instructions Recorded Confirmed Type Levothyroxine Sodium 50 mcg PO DAILY 07/14/18 09/13/23 History Vit No.180/Iron/Folic 1 tab PO HS 07/14/18 09/13/23 History [ Plus Vitamin-Mineral] Cholecalciferol (Vitamin D3) 1 tab PO DAILY 07/27/23 09/13/23 History [Vitamin D3] Ibuprofen [Motrin] 600 mg PO TID #60 tab 09/08/23 09/13/23 Rx Acetaminophen Tab [Tylenol] 650 mg PO Q4H 09/13/23 09/13/23 History Labetalol [Trandate] 200 mg PO BID 09/13/23 09/13/23 History Allergies Allergy/AdvReac Type Severity Reaction Status Date / Time Penicillins Allergy Rash/Hives Verified 09/13/23 17:46 Exam Osteopathic Statement: *. No significant issues noted on an osteopathic structural exam other than those noted in the History and Physical/Consult. Vital Signs Temp Pulse Resp BP Pulse Ox 09/14/23 06:00 89 16 135/92 98 09/14/23 05:00 89 16 127/90 98 09/14/23 04:00 69 16 143/87 99 09/14/23 03:00 65 16 147/84 09/14/23 02:00 69 16 118/73 09/14/23 01:00 77 16 134/76 98 09/14/23 00:00 97.0 F L 69 16 136/79 98 09/13/23 23:00 71 16 133/81 99 09/13/23 22:00 62 16 133/81 100 09/13/23 21:00 80 16 137/84 99 09/13/23 20:00 80 16 153/86 99 09/13/23 19:45 75 16 134/90 99 09/13/23 19:30 75 16 165/76 09/13/23 19:15 98.3 F 73 16 150/82 09/13/23 18:53 98.3 F 67 16 171/92 09/13/23 18:00 97.7 F 66 16 183/89 98 Intake and Output 09/13/23 09/14/23 09/14/23 22:59 06:59 14:59 Intake Total 499.167 Output Total 950 3000 Balance -950 -2500.833 Intake: Intake, IV Titration 499.167 Amount Magnesium Sulfate-Water 499.167 Pmx 20 gm In Water For Injection 1 500ml.bag @ 2 GM/HR 50 mls/hr IV .Q10H [facility] Rx#:[id number] Output: Urine 950 3000 Other: Voiding Method Indwelling Catheter Indwelling Catheter # Voids 1 Weight 94.801 kg Heart: Regular rate and rhythm Lungs: Clear to auscultation bilaterally Abdomen: Soft, nontender Extremities: Negative Homans sign and DTRs 2+ out of 4 Results Result Diagrams: 09/13/23 18:53 09/13/23 18:53 Abnormal Lab Results - Last 24 Hours (Table) 09/13/23 Range/Units 18:30 Urine Blood Large H (Negative) Ur Leukocyte Esterase Large H (Negative) Urine RBC 14 H (0-5) /hpf Urine WBC 28 H (0-5) /hpf Urine Mucus Rare H (None) /hpf Assessment and Plan (1) Pre-eclampsia, Current Visit: Yes Status: Acute Code(s): O14.95 - UNSPECIFIED PRE- ECLAMPSIA, COMPLICATING THE PUERPERIUM SNOMED Code(s): 281826068 Plan: 1. Admit to family place 2. Magnesium sulfate for at least 24 hours 3. Continue labetalol 200 mg twice a day 4. Clear liquid diet 5. Seizure progressions
[2023-09-14] MEDS: LABETALOL 200 MG TAB PO SCH ×2 (08:24→21:03)
--- NOTE | 2023-09-14 09:02 | P.PN ---
Subjective Progress Note Date: 09/14/23 Principal diagnosis: preeclampsia Patient is status post vaginal delivery approximately 1 week. After going home she started noticing slowly increasing blood pressures and headache. She had previously been on magnesium sulfate seizure prophylaxis for 24 hours after delivery. She also had been noticing increasing swelling in her legs. She states she has been anxious but doesn't feel like this is any more than normal. She has followed with Dr. Silva in the past for her tachycardia. She states her tachycardia has actually been okay. She has been taking labetalol 200 mg twice a day at home. Today she still has a headache but feels like her epigastric pain is better vital signs currently are stable with blood pressures no longer in the severe range. Objective - Vital Signs Vital signs: Vital Signs Temp 97.0 F L 09/14/23 00:00 Pulse 93 09/14/23 07:00 Resp 15 09/14/23 07:00 BP 131/83 09/14/23 07:00 Pulse Ox 98 09/14/23 06:00 FiO2 Intake & Output 09/13/23 09/14/23 09/14/23 18:59 06:59 18:59 Intake Total 499.167 Output Total 3950 700 Balance -3450.833 -700 Weight 94.801 kg Intake: Intake, IV Titration 499.167 Amount Magnesium Sulfate-Water 499.167 Pmx 20 gm In Water For Injection 1 500ml.bag @ 2 GM/HR 50 mls/hr IV .Q10H [facility] Rx#:[id number] Output: Urine 3950 700 Other: Voiding Method Indwelling Catheter # Voids 1 - Constitutional General appearance: Present: no acute distress - Respiratory Respiratory: bilateral: CTA - Cardiovascular Rhythm: regular - Labs CBC & Chem 7: 09/13/23 18:53 09/13/23 18:53 Labs: Abnormal Lab Results - Last 24 Hours (Table) 09/13/23 Range/Units 18:30 Urine Blood Large H (Negative) Ur Leukocyte Esterase Large H (Negative) Urine RBC 14 H (0-5) /hpf Urine WBC 28 H (0-5) /hpf Urine Mucus Rare H (None) /hpf Assessment and Plan (1) Pre-eclampsia, Current Visit: Yes Status: Acute Code(s): O14.95 - UNSPECIFIED PRE- ECLAMPSIA, COMPLICATING THE PUERPERIUM SNOMED Code(s): 038747793 Plan: We'll consult cardiology due to her cardiac history and second admission for preeclampsia. May have regular diet at this time. We'll continue magnesium sulfate for total of 24 hours and then discontinued and continue to monitor blood pressures.
[2023-09-14] MEDS: hydrALAZINE HCL 25 MG TAB PO SCH ×3 (13:06→22:02)
--- NOTE | 2023-09-14 14:37 | P.CRDCN ---
History of Present Illness Consult date: 09/14/23 Reason for Consult (text): 1 week readmitted for elevated blood pressures History of present illness: History of present illness: This is a 33-year-old female follows in the office with Dr. Silva with past medical history of sinus tachycardia and thyroid disease and family history of cardiac disease. We have been asked to evaluate the patient for elevated blood pressures. Patient has had preeclampsia with all 3 of her pregnancies. Patient is one week and following discharge, patient is that her blood pressure was gradually rising and she had a headache and lower extremity edema. She has been taking labetalol as directed at home. Upon presentation, blood pressure was 183/89 and this morning 133/74. Heart rates have been in the 70s to 90s. Patient is undergoing magnesium transfusions and has been receiving labetalol. Her edema is improved overnight. CBC is unremarkable. Creatinine 0.57. Home cardiac medications: Labetalol 200 mg twice daily, levothyroxine 50 g daily. Review Of Systems: At the time of my evaluation: Constitutional: No fever, no chills. No weakness, fatigue or lethargy. EENT: No headache. No dizziness. Lungs: No shortness of breath, cough, no sputum production. No wheezing. Cardiovascular: No chest pain, no lower extremity edema. No palpitations. No paroxysmal nocturnal dyspnea. No orthopnea. No lightheadedness or dizziness. No syncopal episodes. Abdominal: No abdominal pain. No nausea, vomiting. No diarrhea. No constipation. No bloody or tarry stools. Genitourinary: No dysuria.. No urinary retention. Musculoskeletal: No myalgias. No muscle weakness, no frequent falls. Integumentary: No wounds. No rash. No unusual bruising. Neurologic: No aphasia. No facial droop. No change in mentation. Physical examination: Gen: This is a 33-year-old female resting in bed appears to be comfortable and in no acute distress. VS: reviewed HEENT: Head is atraumatic, normocephalic. Pupils equal, round. Sclerae is anicteric. NECK: Supple. No JVD. . LUNGS: Clear to auscultation. No wheezes or rhonchi. No intercostal retractions. HEART: Regular rate and rhythm. No murmur. ABDOMEN: Soft No tenderness. EXTREMITIES: No pedal edema. No calf tenderness. NEUROLOGICAL: Patient is awake, alert and oriented x3. Assessment: Hypertension Garsia: Continue labetalol 200 mg twice daily Add hydralazine 25 mg 3 times daily. Patient will continue this at discharge and has been instructed to take it twice daily, check her blood pressure in the afternoon and if it's greater than 150 take an afternoon dose. Patient to monitor her blood pressure at home at different times. She may follow up in the office with Dr. Silva in 2 weeks or call with blood pressure readings. Plan will be to wean her off hydralazine over the next month. As long as patient's blood pressure remains stable, she is cleared from cardiology for discharge home. Thank you kindly for this consultation. Nurse practitioner note has been reviewed, I agree with documented findings and plan of care. Patient was seen and examined. Past Medical History Past Medical History: GERD/Reflux, Hypertension, Thyroid Disorder Additional Past Medical History / Comment(s): 3 vaginal deliveries History of Any Multi-Drug Resistant Organisms: MRSA Date of last positivie culture/infection: 03/2010 MDRO Source:: Left axilla Past Surgical History: Cholecystectomy Additional Past Surgical History / Comment(s): dilated esophagus with EGD, D&C Past Anesthesia/Blood Transfusion Reactions: No Reported Reaction Past Psychological History: No Psychological Hx Reported Smoking Status: Never smoker Past Alcohol Use History: None Reported Past Drug Use History: None Reported - Past Family History Mother Family Medical History: Cancer Additional Family Medical History / Comment(s): STATES GRANDMOTHER HAS CLOTTING DISORDER WITH PEDRO FILTER. Medications and Allergies Home Medications Medication Instructions Recorded Confirmed Type Levothyroxine Sodium 50 mcg PO DAILY 07/14/18 09/13/23 History Vit No.180/Iron/Folic 1 tab PO HS 07/14/18 09/13/23 History [ Plus Vitamin-Mineral] Cholecalciferol (Vitamin D3) 1 tab PO DAILY 07/27/23 09/13/23 History [Vitamin D3] Ibuprofen [Motrin] 600 mg PO TID #60 tab 09/08/23 09/13/23 Rx Acetaminophen Tab [Tylenol] 650 mg PO Q4H 09/13/23 09/13/23 History Labetalol [Trandate] 200 mg PO BID 09/13/23 09/13/23 History hydrALAZINE HCL [Apresoline] 25 mg PO TID #90 tab 09/14/23 Rx Allergies Allergy/AdvReac Type Severity Reaction Status Date / Time Penicillins Allergy Rash/Hives Verified 09/13/23 17:46 Physical Exam Vitals: Vital Signs Temp Pulse Resp BP Pulse Ox 09/14/23 10:48 98 09/14/23 10:00 85 16 133/74 09/14/23 09:00 90 16 136/89 09/14/23 08:00 98.3 F 76 15 144/92 09/14/23 07:00 93 15 131/83 09/14/23 06:00 89 16 135/92 98 09/14/23 05:00 89 16 127/90 98 09/14/23 04:00 69 16 143/87 99 09/14/23 03:00 65 16 147/84 09/14/23 02:00 69 16 118/73 09/14/23 01:00 77 16 134/76 98 09/14/23 00:00 97.0 F L 69 16 136/79 98 09/13/23 23:00 71 16 133/81 99 09/13/23 22:00 62 16 133/81 100 09/13/23 21:00 80 16 137/84 99 09/13/23 20:00 80 16 153/86 99 09/13/23 19:45 75 16 134/90 99 09/13/23 19:30 75 16 165/76 09/13/23 19:15 98.3 F 73 16 150/82 09/13/23 18:53 98.3 F 67 16 171/92 09/13/23 18:00 97.7 F 66 16 183/89 98 Intake and Output 09/13/23 09/14/23 09/14/23 22:59 06:59 14:59 Intake Total 499.167 Output Total 950 3000 2500 Balance -950 -2500.833 -2500 Intake: Intake, IV Titration 499.167 Amount Magnesium Sulfate-Water 499.167 Pmx 20 gm In Water For Injection 1 500ml.bag @ 2 GM/HR 50 mls/hr IV .Q10H [facility] Rx#:[id number] Output: Urine 950 3000 2500 Other: Voiding Method Indwelling Catheter Indwelling Catheter # Voids 1 Weight 94.801 kg Results 09/13/23 18:53 09/13/23 18:53 Cardiac Enzymes 09/13/23 Range/Units 18:53 AST 23 (14-36) U/L Lactate Dehydrogenase 207 (120-246) U/L CBC 09/13/23 Range/Units 18:53 WBC 7.5 (3.8-10.6) k/uL RBC 4.58 (3.80-5.40) m/uL Hgb 13.6 (11.4-16.0) gm/dL Hct 41.1 (34.0-46.0) % Plt Count 226 (150-450) k/uL Comprehensive Metabolic Panel 09/13/23 Range/Units 18:53 BUN 12 (7-17) mg/dL Creatinine 0.57 (0.52-1.04) mg/dL AST 23 (14-36) U/L ALT 22 (4-34) U/L Current Medications Generic Name Dose Route Start Last Admin Trade Name Freq PRN Reason Stop Dose Admin Acetaminophen 650 mg 09/13/23 20:00 09/14/23 05:15 Acetaminophen Tab 325 Mg Tab PO 650 mg Q6HR PRN Administration Fever and/ or Pain Calcium Gluconate 1 gm 09/13/23 18:13 Calcium Gluconate 1 Gm/10 Ml Vial IV 10/13/23 23:00 ONCE PRN Respiratory or Cardiac Arrest Magnesium Sulfate 20 gm/ IV 500 mls @ 50 mls/hr 09/13/23 18:15 09/14/23 05:18 Solution IV 2 gm/hr .Q10H [facility] 50 mls/hr Administration 2 GM/HR Lactated Ringer's 1,000 mls @ 75 mls/hr 09/13/23 19:00 09/14/23 05:19 Lactated Ringers IV 75 mls/hr .[id number] [facility] Administration Ibuprofen 600 mg 09/13/23 20:00 09/14/23 08:29 Ibuprofen 600 Mg Tab PO 600 mg Q6HR PRN Administration Pain Labetalol HCl 200 mg 09/13/23 21:00 09/14/23 08:24 Labetalol 200 Mg Tab PO 200 mg BID [facility] Administration Intake and Output 09/13/23 09/14/23 09/14/23 22:59 06:59 14:59 Intake Total 499.167 Output Total 950 3000 2500 Balance -950 -2500.833 -2500 Intake: Intake, IV Titration 499.167 Amount Magnesium Sulfate-Water 499.167 Pmx 20 gm In Water For Injection 1 500ml.bag @ 2 GM/HR 50 mls/hr IV .Q10H [facility] Rx#:[id number] Output: Urine 950 3000 2500 Other: Voiding Method Indwelling Catheter Indwelling Catheter # Voids 1 Weight 94.801 kg 09/13/23 18:53 09/13/23 18:53
[2023-09-15 00:15] VITALS: RESP 16
[2023-09-15] MEDS: ACETAMINOPHEN TAB 325 MG TAB PO PRN (05:47)
[2023-09-15 08:01] VITALS: PULSE 73; TEMP 98
[2023-09-15] MEDS: LABETALOL 200 MG TAB PO SCH (08:10)
[2023-09-15] MEDS: hydrALAZINE HCL 25 MG TAB PO SCH (08:10)
[2023-09-15] MEDS: IBUPROFEN 600 MG TAB PO PRN (08:10)
--- NOTE | 2023-09-15 08:29 | P.DS ---
Providers Date of admission: 09/13/23 18:15 Expected date of discharge: 09/15/23 Attending physician: Emely Pike Consults: 09/14/23 09:28 Consult Physician Routine Consulting Provider: Keyshawn Silva Consult Reason/Comments: 1 week readmit for elevated blood pressures Do you want consulting provider notified?: Yes Primary care physician: Emely Pike - Discharge Diagnosis(es) (1) Pre-eclampsia, Current Visit: Yes Status: Acute Hospital Course: This is a 33-year-old female who is approximately 1 week care in with elevated blood pressures. She was placed on magnesium sulfate seizure prophylaxis and also continued on her labetalol 200 mg twice a day. Cardiology was consulted. They added hydralazine 25 mg 3 times a day. After coming off the magnesium, most of her blood pressures were in normal range however she did have an elevated blood pressure this morning at 160/96. She was given labetalol and hydralazine shortly after this blood pressure reading. We will watch blood pressures for a few more hours and make sure her blood pressure does come down. She will check her blood pressures at home and report cardiology if she has any continued elevated blood pressures. She will follow up with cardiology in approximately 2 weeks. I will also see her in approximately 2 weeks for a blood pressure check/post appointment. Patient Condition at Discharge: Stable Plan - Discharge Summary New Discharge Prescriptions: New hydrALAZINE HCL [Apresoline] 25 mg PO TID #90 tab No Action Vit No.180/Iron/Folic [ Plus Vitamin-Mineral] 1 tab PO HS Levothyroxine Sodium 50 mcg PO DAILY Cholecalciferol (Vitamin D3) [Vitamin D3] 1 tab PO DAILY Ibuprofen [Motrin] 600 mg PO TID #60 tab Acetaminophen Tab [Tylenol] 650 mg PO Q4H Labetalol [Trandate] 200 mg PO BID Discharge Medication List Levothyroxine Sodium 50 mcg PO DAILY 07/14/18 [History] Vit No.180/Iron/Folic [ Plus Vitamin-Mineral] 1 tab PO HS 07/14/18 [History] Cholecalciferol (Vitamin D3) [Vitamin D3] 1 tab PO DAILY 07/27/23 [History] Ibuprofen [Motrin] 600 mg PO TID #60 tab 09/08/23 [Rx] Acetaminophen Tab [Tylenol] 650 mg PO Q4H 09/13/23 [History] Labetalol [Trandate] 200 mg PO BID 09/13/23 [History] hydrALAZINE HCL [Apresoline] 25 mg PO TID #90 tab 09/14/23 [Rx] Follow up Appointment(s)/Referral(s): Keyshawn Silva MD [STAFF PHYSICIAN] - 2 Weeks (or call with BP readings) Emely Pike DO [Primary Care Provider] - 2 Weeks Activity/Diet/Wound Care/Special Instructions: Take hydralazine twice daily. Check your blood pressure in the afternoon, and if it's greater than 150, take an afternoon dose of hydralazine. Monitor your blood pressure at home at different times. Follow up in the office with Dr. Silva in 2 weeks or call office with blood pressure readings for further instructions. Plan is to wean off hydralazine over the next month. Discharge Disposition: HOME SELF-CARE
[2023-09-15 09:44] VITALS: BP 144/90
--- NOTE | 2023-09-15 10:59 | P.PN ---
Subjective Progress Note Date: 09/15/23 1 week readmitted for elevated blood pressures History of present illness: This is a 33-year-old female follows in the office with Dr. Silva with past medical history of sinus tachycardia and thyroid disease and family history of cardiac disease. We have been asked to evaluate the patient for elevated blood pressures. Patient has had preeclampsia with all 3 of her pregnancies. Patient is one week and following discharge, patient is that her blood pressure was gradually rising and she had a headache and lower extremity edema. She has been taking labetalol as directed at home. Upon presentation, blood pressure was 183/89 and this morning 133/74. Heart rates have been in the 70s to 90s. Patient is undergoing magnesium transfusions and has been receiving labetalol. Her edema is improved overnight. CBC is unremarkable. Creatinine 0.57. Home cardiac medications: Labetalol 200 mg twice daily, levothyroxine 50 g daily. 09/15 Patient is seen today in follow-up. Blood pressure 144/90. Patient has received 2 doses of hydralazine so far. Patient has been seen by [facility] and plan for discharge home today. We will change of our plan with hydralazine and patient to take as prescribed 3 times daily, continue to monitor her blood pressure. She may call the office in a couple days with blood pressure readings. Physical examination: Gen: This is a 33-year-old female resting in bed appears to be comfortable and in no acute distress. VS: reviewed HEENT: Head is atraumatic, normocephalic. Pupils equal, round. Sclerae is anicteric. NECK: Supple. No JVD. . LUNGS: Clear to auscultation. No wheezes or rhonchi. No intercostal retractions. HEART: Regular rate and rhythm. No murmur. ABDOMEN: Soft No tenderness. EXTREMITIES: No pedal edema. No calf tenderness. NEUROLOGICAL: Patient is awake, alert and oriented x3. Assessment: Hypertension Garsia: Continue labetalol 200 mg twice daily Continue hydralazine 25 mg 3 times daily. She may follow up in the office with Dr. Silva in 2 weeks She is cleared from cardiology for discharge home. Nurse practitioner note has been reviewed, I agree with documented findings and plan of care. Patient was seen and examined. Objective - Vital Signs Vital signs: Vital Signs Temp 98.0 F 09/15/23 07:43 Pulse 73 09/15/23 07:43 Resp 16 09/15/23 07:43 BP 144/90 09/15/23 09:35 Pulse Ox 96 09/15/23 03:00 FiO2 Intake & Output 09/14/23 09/15/23 09/15/23 18:59 06:59 18:59 Intake Total 493.333 931.667 Output Total 4150 3100 1000 Balance -3656.667 -2168.333 -1000 Weight 96.1 kg Intake: IV 740 Intake, IV Titration 493.333 191.667 Amount Magnesium Sulfate-Water 493.333 191.667 Pmx 20 gm In Water For Injection 1 500ml.bag @ 2 GM/HR 50 mls/hr IV .Q10H JAVAD Rx#:[id number] Output: Urine 4150 3100 1000 Other: # Bowel Movements 1 - Labs CBC & Chem 7: 09/13/23 18:53 09/13/23 18:53
== END 2023-09-15 10:00 | disposition home or self-care (01) | DRG 776 ==
LOC: FBPOP 17:25 → 4FBP 18:15
PROVIDERS: ADMIT Obstetrics & Gynecology; ATTEND Obstetrics & Gynecology
DX: O14.05 Mild to moderate pre-eclampsia, complicating the puerperium (principal); O99.285 Endocrine, nutritional and metabolic diseases complicating the puerperium; E07.9 Disorder of thyroid, unspecified; Z79.899 Other long term (current) drug therapy; Z79.890 Hormone replacement therapy; Z88.0 Allergy status to penicillin
CPT/HCPCS: 81001; 82565; 82570; 83615; 84156; 84450; 84460; 84520; 84550; 85025; 85384

== ENCOUNTER → 2024-01-14 | Outpatient (CLI) | payer BC ==
--- NOTE | 2024-01-14 11:43 | USB ---
Reason for Exam: Clinical finding. Technique: Method: Whole Breast Handheld. Findings: The whole breast of both breasts, the axilla of both breasts and the retroareolar of both breasts were scanned. A complete US of all four quadrants of both breasts, axilla, and retro-areolar region were reviewed. Right: Dense tissue is present throughout in keeping with lactating state. No solid or cystic lesion, duct ectasia, or axillary lymphadenopathy. Left: Dense tissue is present throughout. No solid or cystic lesion or duct ectasia. There is a prominent lymph node measuring 2.0 x 1.1 x 0.9 cm. There is slight eccentric cortical thickening up to 4 mm. Overall Assessment: Incomplete: need additional imaging evaluation, BI-RAD 0 Management: Diagnostic Mammogram of both breasts. Electronically signed and approved by: Bony Barahona M.D. Radiologist
--- NOTE | 2024-01-14 12:27 | MM ---
Reason for Exam: Clinical finding. Baseline mammogram. Indicated Problems: Bloody discharge of the left side for 2 Day(s). Patient History: Menarche at age 16. First Full-Term at age 28. Patient has history of breast feeding. Patient used Hormonal Contraceptives for 10 years. Paternal grandmother had breast cancer at or over age 50. Prior Study Comparison: Patient's first Mammogram. Tissue Density: The breasts are extremely dense, which lowers the sensitivity of mammography. Findings: Analyzed By CAD. Very dense tissues are present throughout. No discrete suspicious persisting abnormality on 3-D images. Axial scattered punctate calcifications are noted. No suspicious grouped microcalcifications are identified. Overall Assessment: Suspicious, BI-RAD 4 Management: Surgical Consultation of the left breast. Diagnostic Breast Ultrasound of the left breast in 14 days. The patient's symptoms of bloody nipple discharge are suspicious. We will repeat left axillary ultrasound in 2 weeks after cessation of breast-feeding to reassess the lymph nodes that show mild eccentric cortical thickening. If there is improvement at that time, it would suggest reactive nodes. If there is persistence, in light of the patient's symptoms, biopsy may be considered. Surgeon may also consider duct exploration. Case discussed with Dr. Filiberto Gilliland. Results were given to the patient verbally at the time of exam. Electronically signed and approved by: Bony Barahona M.D. Radiologist
== END | disposition home or self-care (01) ==
LOC: RADUSWWP 10:37
PROVIDERS: ATTEND Surgery
DX: N64.52 Nipple discharge (principal)
CPT/HCPCS: 77062; 77066

== ENCOUNTER → 2024-01-14 | Outpatient (CLI) | payer BC ==
[2024-01-14 09:11] VITALS: BP 132/88; PULSE 91; RESP 16; TEMP 98.5
--- NOTE | 2024-01-14 10:03 | P.GSHP ---
History of Present Illness H&P Date: 01/14/24 Chief Complaint: bloody discharge left breast Mandi is a 33 year old female seen in consultation for DR Pike regarding bloody nipple discharge from the left breast. She had a baby on September 06, 2023 and has been pumping since than. She is pumping every four hours, and everything was fine until yesterday and she did not feel anything different but when she went to pour the [place] she noted a large clot from the left side. She is not complaining of any fever or chills, she has not had any trauma to her breast. She has had several drops of blood after pumping in the past, but nothing like this. Caffeine: occasional nicotine: none chocolate:eats sammi nuggets daily hormones: none BCP: used for about 10 years Family History: paternal grandmother: breast cancer maternal grandmother: skin cancer not melanoma maternal grandfather: skin cancer not melanoma, prostate cancer mother: cervical or ovarian cancer Hormonal History: menarche: 16 M2, breast fed: yes, age at first : 28 not started having periods yet since Surgical History: gallbladder D&C wisdom teeth Medical History: hypothyroid HTN when Social History: nicotine: none alxohol: none drugs: none - Constitutional Constitutional: Denies chills, Denies fever - EENT Eyes: denies blurred vision, denies pain Ears: deny: decreased hearing, tinnitus Ears, nose, mouth and throat: Denies headache, Denies sore throat - Breasts Breasts: bilateral: as per HPI - Cardiovascular Cardiovascular: Denies chest pain, Denies shortness of breath - Respiratory Respiratory: Denies cough, Denies 7 - Gastrointestinal Gastrointestinal: Denies abdominal pain, Denies diarrhea, Denies nausea, Denies vomiting - Genitourinary (Female) Genitourinary: Denies dysuria, Denies hematuria - Menstruation Menstruation: Reports as per HPI - Musculoskeletal Musculoskeletal: Denies myalgias - Integumentary Integumentary: Denies pruritus, Denies rash - Neurological Neurological: Denies numbness, Denies weakness - Psychiatric Psychiatric: Denies anxiety, Denies depression - Endocrine Endocrine: Denies fatigue, Denies weight change - Hematologic/Lymphatic Comment: none - Allergic/Immunologic Allergic/Immunologic: Reports seasonal allergies Past Medical History Past Medical History: GERD/Reflux, Hypertension, Thyroid Disorder Additional Past Medical History / Comment(s): 3 vaginal deliveries History of Any Multi-Drug Resistant Organisms: MRSA Date of last positivie culture/infection: 03/2010 MDRO Source:: Left axilla Past Surgical History: Cholecystectomy Additional Past Surgical History / Comment(s): dilated esophagus with EGD, D&C Past Anesthesia/Blood Transfusion Reactions: No Reported Reaction Past Psychological History: No Psychological Hx Reported Smoking Status: Never smoker Past Alcohol Use History: None Reported Past Drug Use History: None Reported - Past Family History Mother Family Medical History: Cancer Additional Family Medical History / Comment(s): STATES GRANDMOTHER HAS CLOTTING DISORDER WITH PEDRO FILTER. Medications and Allergies Home Medications Medication Instructions Recorded Confirmed Type Levothyroxine Sodium 50 mcg PO DAILY 07/14/18 01/14/24 History Vit No.180/Iron/Folic 1 tab PO HS 07/14/18 01/14/24 History [ Plus Vitamin-Mineral] Cholecalciferol (Vitamin D3) 1 tab PO DAILY 07/27/23 01/14/24 History [Vitamin D3 (1250 Mcg = 50,000 Iu)] Ibuprofen [Motrin] 600 mg PO TID #60 tab 09/08/23 01/14/24 Rx Acetaminophen Tab [Tylenol] 650 mg PO Q4H 09/13/23 01/14/24 History Labetalol [Trandate] 200 mg PO BID 09/13/23 01/14/24 History Allergies Allergy/AdvReac Type Severity Reaction Status Date / Time Penicillins Allergy Rash/Hives Verified 01/14/24 08:51 Surgical - Exam Vital Signs Temp Pulse Resp BP Pulse Ox 98.5 F 91 16 132/88 97 01/14/24 08:55 01/14/24 08:55 01/14/24 08:55 01/14/24 08:55 01/14/24 08:55 - General no distress - Eyes normal ocular movement - ENT no hearing loss - Neck trachea midline - Respiratory normal respiratory effort, clear to auscultation - Cardiovascular Rhythm: regular Heart Sounds: normal: S1, S2 - Integumentary normal turgor - Neurologic no disoriented, no combative - Musculoskeletal normal gait, normal posture - Psychiatric oriented to time, oriented to person, oriented to place, speech is normal, memory intact Breast Exam: BRA: 38DD Inspection: Bilateral engorged breast/patient breast-feeding/bilateral grade 2 ptosis Palpation: Right breast: Multi positional exam engorged breast, no dominant masses or nodules of concern Right axilla: No adenopathy of concern Left breast: Engorged breast, with palpation there is excretion of milk and this is guaiac positive there appears to be an area at the 6 o'clock position of the nipple that is excoriated and this appears to be where the bloody discharges emanating from Left axilla: No adenopathy of concern Assessment and Plan Assessment: Impression: Left breast bloody nipple discharge/patient pumping/breast-feeding/baby was born September 06, 2021 Plan: Radiographic evaluation of the breast will discussed with radiologist what is the best study Most likely patient will stop breast-feeding probable duct exploration after stops breast feeding; 6 OClock position of the left breast CC: Dr. Pike
== END ==
LOC: WWCWWP 08:42
PROVIDERS: ATTEND Surgery
DX: N64.52 Nipple discharge (principal)

== ENCOUNTER → 2024-01-27 | Outpatient (CLI) | payer BC ==
--- NOTE | 2024-01-28 07:29 | USB ---
Reason for Exam: Follow-up at short interval from prior study. Patient History: Menarche at age 16. First Full-Term at age 28. Patient has history of breast feeding. Patient used Hormonal Contraceptives for 10 years. Paternal grandmother had breast cancer at or over age 50. Technique: Method: Targeted. Prior Study Comparison: 01/14/2024 Bilateral MG 3D diag mammo w/cad [facility]. Findings: The axilla of the left breast was scanned. Axillary adenopathy remains present. However, the cortex appears to be diminishing over the interval. A portion of the cortex does remain enlarged over the short interval. Overall Assessment: Probably benign, BI-RAD 3 Management: Surgical Consultation of the left breast. A clinical breast exam by your physician is recommended on an annual basis and results should be correlated with mammographic findings. This exam should not preclude additional follow-up of suspicious palpable abnormalities. Results were given to the patient verbally at the time of exam. Clinical Management of the left breast. Electronically signed and approved by: Brandon Reardon D.O. Radiologis
== END | disposition home or self-care (01) ==
LOC: RADUSWWP 10:29
PROVIDERS: ATTEND Surgery
DX: N64.52 Nipple discharge (principal); Z80.3 Family history of malignant neoplasm of breast

== ENCOUNTER → 2024-01-28 | Outpatient (CLI) | payer BC ==
--- NOTE | 2024-01-28 08:26 | P.PN ---
Progress Note - Text Progress Note Date: 01/28/24 Mandi is a 33-year-old female who was seen on 01-14-[address] Pike regarding bloody nipple discharge from the left breast. She delivered a baby at September 06, 2023 and had been pumping since then. She pumps every 4 hours and everything was fine until recently when she did not feel anything different but when she went to pour out the milk she noticed a large clot from the left side. She was not complaining of any fever or chills. She had not had any trauma to her breast. She had had several drops of blood after pumping in the past but nothing like that. She underwent a bilateral mammogram and left breast ultrasound of the axilla on 01-14-2024. This was personally reviewed with Dr. Barahona. Nothing specific was seen in the breast. She did have some enlarged left axillary nodes with the cortex being 4 mm on one of the nodes. It was felt to be most likely inflammatory. On 01-27-2020 4 repeat left axillary ultrasound was performed. This revealed the cortex to be diminishing over the interval. A portion of the cortex did remain enlarged and this was fe lt to be a BI-RADS 3 finding. Examination of 01-14-2024 no enlarged axillary nodes had been appreciated. The patient has stopped breast feeding and has not noticed any blood since that time. Lungs: Clear Heart: Regular rate and rhythm Examination of both breast again reveals no dominant masses or nodules of concern in either breast breast are less engorged, she continues to have some milky discharge Examination particularly of the left breast does not reveal bloody discharge at this time, there was however definite discharge from a specific duct at the 6 o'clock position on her last examination which was bloody. Right axilla: No adenopathy of concern Left axilla: No adenopathy of concern Right breast: Multi positional exam no dominant masses or nodules of concern Left breast: Multi positional exam no dominant masses or nodules of concern on today's examination note bloody discharge Impression: Resolved bloody discharge at this time Repeat axillary ultrasound decreased in the cortex of the lymph node on the left Plan: Patient has stopped breast-feeding she will be seen again in 1 month and at that time we will most likely do a left duct exploration secondary to the fact that she had a specific duct with bloody discharge We are waiting for the milk to stop prior to the duct exploration CC: Dr. Ramos
[2024-01-28 09:04] VITALS: BP 137/87; PULSE 97; RESP 16; TEMP 98
== END ==
LOC: WWCWWP 07:57
PROVIDERS: ATTEND Surgery
DX: N64.52 Nipple discharge (principal); R59.0 Localized enlarged lymph nodes; Z88.0 Allergy status to penicillin

== ENCOUNTER → 2024-03-02 | Outpatient (CLI) | payer BC ==
[2024-03-02 09:24] VITALS: BP 156/98; PULSE 93; RESP 17; TEMP 97.8
--- NOTE | 2024-03-02 09:50 | P.PN ---
Subjective Progress Note Date: 03/02/24 History of Present Illness H&P Date: 01/14/24 Chief Complaint: bloody discharge left breast Mandi is a 33 year old female seen in consultation for DR Pike regarding bloody nipple discharge from the left breast. She had a baby on September 06, 2023 and has been pumping since than. She is pumping every four hours, and everything was fine until yesterday and she did not feel anything different but when she went to pour the [place] she noted a large clot from the left side. She is not complaining of any fever or chills, she has not had any trauma to her breast. She has had several drops of blood after pumping in the past, but n othing like this. Patient had bilateral mammogram and left breast ultrasound of an axillary ultrasound of the left performed on 01-14-2024. This was personally reviewed with Dr. Barahona. Nothing specific was seen in the breast. She does have some enlarged left axillary nodes with the cortex being 4 mm. At this time it is felt they may be inflammatory and she is going to stop breast-feeding and then have a repeat ultrasound of the axilla, if the cortex remains enlarged she will have a biopsy. This was repeated on 01-27-24 and cortex was diminishing. We have talked to her [employer] office and she is going to stop breast-feeding. The recommendation is Stop nipple stimulation Wear a tight sports bra Cabbage leaves which are frozen to be put in her sports bra Peppermint Zack Tea follow up in two weeks with repeat ultrasound of the left axilla probable left breast duct exploration at 6 pm after stops breast feeding, as thes is the site of the bloody discharge Bilateral mammogram in 01-14-2024 the breasts are extremely dense with this lowers the sensitivity of mammography she underwent bilateral breast ultrasound which revealed a prominent lymph node in the left axilla measuring 2 x 1.1 cm a repeat ultrasound of the axilla was performed on 01-27-2024 which showed that the cortex was diminishing over the interval 03-02-24 The patient stopped breast feeding the beginning of January, she is still having some milky discharge. She has not had any more bloody discharge. She is not complaining of any pain. NO new lumps, masses, or nodules of concern. She had her first period since the on February 06. Caffeine: occasional nicotine: none chocolate:eats Isabella nuggets daily hormones: none BCP: used for about 10 years Family History: paternal grandmother: breast cancer maternal grandmother: skin cancer not melanoma maternal grandfather: skin cancer not melanoma, prostate cancer mother: cervical or ovarian cancer Hormonal History: menarche: 16 M2, breast fed: yes, age at first : 28 not started having periods yet since Surgical History: gallbladder D&C wisdom teeth Medical History: hypothyroid HTN when Social History: nicotine: none alxohol: none drugs: none - Constitutional Constitutional: Denies chills, Denies fever - EENT Eyes: denies blurred vision, denies pain Ears: deny: decreased hearing, tinnitus Ears, nose, mouth and throat: Denies headache, Denies sore throat - Breasts Breasts: bilateral: as per HPI - Cardiovascular Cardiovascular: Denies chest pain, Denies shortness of breath - Respiratory Respiratory: Denies cough - Gastrointestinal Gastrointestinal: Denies abdominal pain, Denies diarrhea, Denies nausea, Denies vomiting - Genitourinary (Female) Genitourinary: Denies dysuria, Denies hematuria - Menstruation Menstruation: Reports as per HPI - Musculoskeletal Musculoskeletal: Denies myalgias - Integumentary Integumentary: Denies pruritus, Denies rash - Neurological Neurological: Denies numbness, Denies weakness - Psychiatric Psychiatric: Denies anxiety, Denies depression - Endocrine Endocrine: Denies fatigue, Denies weight change - Hematologic/Lymphatic Comment: none - Allergic/Immunologic Allergic/Immunologic: Reports seasonal allergies Past Medical History Past Medical History: GERD/Reflux, Hypertension, Thyroid Disorder Additional Past Medical History / Comment(s): 3 vaginal deliveries History of Any Multi-Drug Resistant Organisms: MRSA Date of last positivie culture/infection: 03/2010 MDRO Source:: Left axilla Past Surgical History: Cholecystectomy Additional Past Surgical History / Comment(s): dilated esophagus with EGD, D&C Past Anesthesia/Blood Transfusion Reactions: No Reported Reaction Past Psychological History: No Psychological Hx Reported Smoking Status: Never smoker Past Alcohol Use History: None Reported Past Drug Use History: None Reported - Past Family History Mother Family Medical History: Cancer Additional Family Medical History / Comment(s): STATES GRANDMOTHER HAS CLOTTING DISORDER WITH PEDRO FILTER. Medications and Allergies Home Medications Medication Instructions Recorded Confirmed Type Levothyroxine Sodium 50 mcg PO DAILY 07/14/18 01/14/24 History Vit No.180/Iron/Folic 1 tab PO HS 07/14/18 01/14/24 History [ Plus Vitamin-Mineral] Cholecalciferol (Vitamin D3) 1 tab PO DAILY 07/27/23 01/14/24 History [Vitamin D3 (1250 Mcg = 50,000 Iu)] Ibuprofen [Motrin] 600 mg PO TID #60 tab 09/08/23 01/14/24 Rx Acetaminophen Tab [Tylenol] 650 mg PO Q4H 09/13/23 01/14/24 History Labetalol [Trandate] 200 mg PO BID 09/13/23 01/14/24 History Allergies Allergy/AdvReac Type Severity Reaction Status Date / Time Penicillins Allergy Rash/Hives Verified 01/14/24 08:51 Objective - Vital Signs Vital signs: Vital Signs Temp 97.8 F 03/02/24 09:18 Pulse 93 03/02/24 09:18 Resp 17 03/02/24 09:18 BP 156/98 03/02/24 09:18 Pulse Ox 97 03/02/24 09:18 FiO2 Intake & Output 03/01/24 03/02/24 03/02/24 18:59 06:59 18:59 Weight 103.419 kg - Constitutional General appearance: Present: cooperative - EENT Eyes: Present: EOMI ENT: Present: hearing grossly normal - Neck Neck: Present: normal ROM - Respiratory Respiratory: bilateral: CTA - Cardiovascular Rhythm: regular Heart sounds: normal: S1, S2 - Integumentary Integumentary: Present: normal turgor - Musculoskeletal Musculoskeletal: Present: gait normal - Psychiatric Psychiatric: Present: A&O x's 3, appropriate affect, intact judgment & insight - Additional findings Additional findings: Breast Exam: BRA: 38DD Inspection: Bilateral engorged breast/patient stopped breast-feeding/bilateral grade 2 ptosis Palpation: Right breast: Multi positional exam engorged breast, no dominant masses or nodules of concern, okay to discharge with palpation no bloody discharge Right axilla: No adenopathy of concern Left breast: Engorged breast, with palpation there is excretion of milk and this was guaiac positive and appears to be an area at the 6 o'clock position of the nipple that is excoriated and this appears to be where the bloody discharg was emanating from; discharge on today's exam Left axilla: No adenopathy of concern Assessment and Plan Assessment: Impression: Left breast bloody nipple discharge/patient pumping/breast-feeding/baby was born September 06, 2021 Residual bilateral milky discharge, no bloody discharge on today's exam Plan: Left breast axillary ultrasound to evaluate lymph node in 1 month with follow-up at that time Left duct exploration after milk stops 6 o'clock position left breast; scheduled for May 2024 follow up in one month Or if bloody discharge starts again CC: Dr. Ramos
== END ==
LOC: WWCWWP 09:04
PROVIDERS: ATTEND Surgery
DX: R92.8 Other abnormal and inconclusive findings on diagnostic imaging of breast (principal); N64.52 Nipple discharge; R59.0 Localized enlarged lymph nodes; N63.20 Unspecified lump in the left breast, unspecified quadrant; Z80.3 Family history of malignant neoplasm of breast; Z88.0 Allergy status to penicillin

== ENCOUNTER → 2024-04-10 | Outpatient (CLI) | payer BC ==
--- NOTE | 2024-04-10 13:11 | USB ---
Reason for Exam: Follow-up at short interval from prior study. Patient History: Menarche at age 16. First Full-Term at age 28. Patient has history of breast feeding. Patient used Hormonal Contraceptives for 10 years. Paternal grandmother had breast cancer at or over age 50. Technique: Method: Targeted. Doppler: Color. Patient Position: Supine. Prior Study Comparison: 01/14/2024 Bilateral MG 3D diag mammo w/cad [facility], [facility]. 01/27/2024 Left US breast axilla , [facility]. Findings: The axilla of the left breast was scanned. Ultrasound of the left axilla was performed. There is a borderline prominence of left axillary lymph node measuring 3.6 x 1.9 x 0.9 cm with smaller area of focal cortical thickening about 0.46 cm. Overall morphology and appearance remains stable. Continued follow-up is advised.. Overall Assessment: Probably benign, BI-RAD 3 Management: Diagnostic Breast Ultrasound of the left breast in 6 months. A clinical breast exam by your physician is recommended on an annual basis and results should be correlated with mammographic findings. This exam should not preclude additional follow-up of suspicious palpable abnormalities. Results were given to the patient verbally at the time of exam. Electronically signed and approved by: Jeovanny Dudley M.D. Radiologis
== END | disposition home or self-care (01) ==
LOC: RADUSWWP 10:23
PROVIDERS: ATTEND Surgery
DX: N63.0 Unspecified lump in unspecified breast (principal); Z80.3 Family history of malignant neoplasm of breast

== ENCOUNTER → 2024-04-14 | Outpatient (CLI) | payer BC ==
[2024-04-14 12:51] VITALS: BP 130/91; PULSE 77; RESP 16; TEMP 98.1
--- NOTE | 2024-04-14 13:14 | P.PN ---
Subjective Progress Note Date: 04/14/24 01/14/24 Chief Complaint: bloody discharge left breast Mandi is a 33 year old female seen in consultation for DR Pike regarding bloody nipple discharge from the left breast. She had a baby on September 06, 2023 and has been pumping since than. She is pumping every four hours, and everything was fine until yesterday and she did not feel anything different but when she went to pour the milk she noted a large clot from the left side. She is not complaining of any fever or chills, she has not had any trauma to her breast. She has had several drops of blood after pumping in the past, but nothing like this. Patient had bilateral mammogram and left breast ultrasound of an axillary ultrasound of the left performed on 01-14-2024. This was personally reviewed with Dr. Barahona. Nothing specific was seen in the breast. She does have some enlarged left axillary nodes with the cortex being 4 mm. At this time it is felt they may be inflammatory and she is going to stop breast-feeding and then have a repeat ultrasound of the axilla, if the cortex remains enlarged she will have a biopsy. This was repeated on 01-27-24 and cortex was diminishing. 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 The recommendation is Stop nipple stimulation Wear a tight sports bra Cabbage leaves which are frozen to be put in her sports bra Peppermint Zack Tea follow up in two weeks with repeat ultrasound of the left axilla probable left breast duct exploration at 6 pm after stops breast feeding, as thes is the site of the bloody discharge Bilateral mammogram in 01-14-2024 the breasts are extremely dense with this lowers the sensitivity of mammography she underwent bilateral breast ultrasound which revealed a prominent lymph node in the left axilla measuring 2 x 1.1 cm a repeat ultrasound of the axilla was performed on 01-27-2024 which showed that the cortex was diminishing over the interval 03-02-24 The patient stopped breast feeding the beginning of January, she is still having some milky discharge. She has not had any more bloody discharge. She is not complaining of any pain. NO new lumps, masses, or nodules of concern. She had her first period since the on February 06. 04-14-24 left axilla ultrasound done on 04-10-24 focal cortical thickening .46 cm recommend ultrasound in 6 months At this time she is not having any milky discharge or bloody discharge The patient does not complain of any new lumps masses or nodules of concern in either breast Caffeine: occasional nicotine: none chocolate:eats Linda nuggets daily hormones: none BCP: used for about 10 years Family History: paternal grandmother: breast cancer maternal grandmother: skin cancer not melanoma maternal great aunt: breast cancer of this maternal grandfather: skin cancer not melanoma, prostate cancer mother: cervical or ovarian cancer Hormonal History: menarche: 16 M2, breast fed: yes, age at first : 28 not started having periods yet since Surgical History: gallbladder D&C wisdom teeth Medical History: hypothyroid HTN when Social History: nicotine: none alxohol: none drugs: none - Constitutional Constitutional: Denies chills, Denies fever - EENT Eyes: denies blurred vision, denies pain Ears: deny: decreased hearing, tinnitus Ears, nose, mouth and throat: Denies headache, Denies sore throat - Breasts Breasts: bilateral: as per HPI - Cardiovascular Cardiovascular: Denies chest pain, Denies shortness of breath - Respiratory Respiratory: Denies cough - Gastrointestinal Gastrointestinal: Denies abdominal pain, Denies diarrhea, Denies nausea, Denies vomiting - Genitourinary (Female) Genitourinary: Denies dysuria, Denies hematuria - Menstruation Menstruation: Reports as per HPI - Musculoskeletal Musculoskeletal: Denies myalgias - Integumentary Integumentary: Denies pruritus, Denies rash - Neurological Neurological: Denies numbness, Denies weakness - Psychiatric Psychiatric: Denies anxiety, Denies depression - Endocrine Endocrine: Denies fatigue, Denies weight change - Hematologic/Lymphatic Comment: none - Allergic/Immunologic Allergic/Immunologic: Reports seasonal allergies Past Medical History Past Medical History: GERD/Reflux, Hypertension, Thyroid Disorder Additional Past Medical History / Comment(s): 3 vaginal deliveries History of Any Multi-Drug Resistant Organisms: MRSA Date of last positivie culture/infection: 03/2010 MDRO Source:: Left axilla Past Surgical History: Cholecystectomy Additional Past Surgical History / Comment(s): dilated esophagus with EGD, D&C Past Anesthesia/Blood Transfusion Reactions: No Reported Reaction Past Psychological History: No Psychological Hx Reported Smoking Status: Never smoker Past Alcohol Use History: None Reported Past Drug Use History: None Reported - Past Family History Mother Family Medical History: Cancer Additional Family Medical History / Comment(s): STATES GRANDMOTHER HAS CLOTTING DISORDER WITH PEDRO FILTER. Medications and Allergies Home Medications Medication Instructions Recorded Confirmed Type Levothyroxine Sodium 50 mcg PO DAILY 07/14/18 01/14/24 History Vit No.180/Iron/Folic 1 tab PO HS 07/14/18 01/14/24 History [ Plus Vitamin-Mineral] Cholecalciferol (Vitamin D3) 1 tab PO DAILY 07/27/23 01/14/24 History [Vitamin D3 (1250 Mcg = 50,000 Iu)] Ibuprofen [Motrin] 600 mg PO TID #60 tab 09/08/23 01/14/24 Rx Acetaminophen Tab [Tylenol] 650 mg PO Q4H 09/13/23 01/14/24 History Labetalol [Trandate] 200 mg PO BID 09/13/23 01/14/24 History Allergies Allergy/AdvReac Type Severity Reaction Status Date / Time Penicillins Allergy Rash/Hives Verified 01/14/24 08:51 Objective - Vital Signs Vital signs: Vital Signs Temp 98.1 F 04/14/24 12:44 Pulse 77 04/14/24 12:44 Resp 16 04/14/24 12:44 BP 130/91 04/14/24 12:44 Pulse Ox 97 04/14/24 12:44 FiO2 Intake & Output 04/13/24 04/14/24 04/14/24 18:59 06:59 18:59 Weight 99.79 kg - Constitutional General appearance: Present: cooperative - EENT ENT: Present: hearing grossly normal - Neck Neck: Present: normal ROM - Respiratory Respiratory: bilateral: CTA - Cardiovascular Heart sounds: normal: S1, S2 - Integumentary Integumentary: Present: normal turgor - Musculoskeletal Musculoskeletal: Present: gait normal - Psychiatric Psychiatric: Present: A&O x's 3, appropriate affect, intact judgment & insight - Additional findings Additional findings: Breast Exam: BRA: 38DD Inspection: Engorgement of the breast has resolved as the patient has stopped breast-feeding, bilateral grade 2/3 ptosis Palpation: Right breast: Multi positional exam no dominant masses or nodules of concern, no nipple discharge Right axilla: No adenopathy of concern Left breast: Multi positional exam no dominant masses or nodules of concern, no nipple discharge, particular attention to the 6 o'clock position does not reveal any nipple discharge no bloody discharge Left axilla: No adenopathy of concern Assessment and Plan Assessment: Impression: Left breast bloody nipple discharge/patient pumping/breast-feeding/baby was born September 06, 2021; discharge on today's examination the engorgement of the breast has resolved the patient stopped breast-feeding And axillary ultrasound 04-10-2024 persistent prominent left axillary node with focal cortical thickening of 0.46 cm [place] to be BI-RADS 3 diagnostic breast ultrasound on the left in 6 months Plan: I had a discussion with the patient regarding duct exploration at the 6 o'clock position of the left breast, initially when she presented we were planning to do a duct exploration after the milk dried up. However she has had no discharge of any kind at this time. Radiographically there is no lesion noted. And on physical examination no lesion is identified with no nipple discharge. Therefore we discussed the option of a blind duct exploration versus close surve illance and at this time she would prefer close surveillance. She understands I cannot guarantee there is not something there but would still like to have close surveillance. Regarding the enlarged left axillary lymph node secondary to the fact that the cortex has remained over 2 mm we discussed continued surveillance versus an ultrasound-guided core biopsy. Secondary to the persistent enlarged cortex we would recommend an ultrasound-guided core biopsy. She will follow-up after this is done. Should the radiologist choose not to do the biopsy then we will follow this with close surveillance. CC: Dr. Ramos
== END ==
LOC: WWCWWP 12:15
PROVIDERS: ATTEND Surgery
DX: R92.8 Other abnormal and inconclusive findings on diagnostic imaging of breast (principal); N64.52 Nipple discharge; N64.59 Other signs and symptoms in breast; R59.0 Localized enlarged lymph nodes; Z80.3 Family history of malignant neoplasm of breast; Z88.0 Allergy status to penicillin

== ENCOUNTER → 2024-05-08 | Day surgery (SDC) | payer BC ==
--- NOTE | 2024-05-10 09:08 | USB ---
Findings: Excellent: Within the left axilla there is a somewhat prominent lymph node measuring 2.0 x 0.5 x 0.8 cm. The thickening of the inferior portion of the lymph node cortex is 0.3 cm. However, this is similar to the most recent comparison of 0.31 cm. Previous 0.4 cm thickness of cortex within the midportion is diminished on the current exam measuring 0.28 cm. No increasing cortical thickness is evident. Additional history provided is remote, approximately 14 years prior, MRSA axillary infection. This may be reactive lymph node or may be the patient's new baseline appearance. Precautionary follow up ultrasound left axilla is recommended in 6 months. Management: Diagnostic Breast Ultrasound of the left breast in 6 months. A clinical breast exam by your physician is recommended on an annual basis and results should be correlated with mammographic findings. This exam should not preclude additional follow-up of suspicious palpable abnormalities. Results were given to the patient verbally at the time of exam. Electronically signed and approved by: Brandon Reardon D.O. Radiologis
== END ==
LOC: RADUSWWP 12:45
PROVIDERS: ATTEND Surgery
DX: N63.20 Unspecified lump in the left breast, unspecified quadrant (principal)

== ENCOUNTER → 2024-05-18 | Outpatient (CLI) | payer BC ==
[2024-05-18 11:04] VITALS: BP 125/85; PULSE 79; RESP 17; TEMP 98.3
--- NOTE | 2024-05-18 11:05 | P.PN ---
Subjective Progress Note Date: 05/18/24 Principal diagnosis: bloody nipple discharge 04/14/24 01/14/24 Chief Complaint: bloody discharge left breast Mandi is a 33 year old female seen in consultation for DR Pike regarding bloody nipple discharge from the left breast. She had a baby on September 06, 2023 and has been pumping since than. She is pumping every four hours, and everything was fine until yesterday and she did not feel anything different but when she went to pour the milk she noted a large clot from the left side. She is not complaining of any fever or chills, she has not had any trauma to her breast. She has had several drops of blood after pumping in the past, but no thing like this. Patient had bilateral mammogram and left breast ultrasound of an axillary ultrasound of the left performed on 01-14-2024. This was personally reviewed with Dr. Barahona. Nothing specific was seen in the breast. She does have some enlarged left axillary nodes with the cortex being 4 mm. At this time it is felt they may be inflammatory and she is going to stop breast-feeding and then have a repeat ultrasound of the axilla, if the cortex remains enlarged she will have a biopsy. This was repeated on 01-27-24 and cortex was diminishing. 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 The recommendation is Stop nipple stimulation Wear a tight sports bra Cabbage leaves which are frozen to be put in her sports bra Peppermint Zack Tea follow up in two weeks with repeat ultrasound of the left axilla probable left breast duct exploration at 6 pm after stops breast feeding, as thes is the site of the bloody discharge Bilateral mammogram in 01-14-2024 the breasts are extremely dense with this lowers the sensitivity of mammography she underwent bilateral breast ultrasound which revealed a prominent lymph node in the left axilla measuring 2 x 1.1 cm a repeat ultrasound of the axilla was performed on 01-27-2024 which showed that the cortex was diminishing over the interval 03-02-24 The patient stopped breast feeding the beginning of January, she is still having some milky discharge. She has not had any more bloody discharge. She is not complaining of any pain. NO new lumps, masses, or nodules of concern. She had her first period since the on February 06. 04-14-24 left axilla ultrasound done on 04-10-24 focal cortical thickening .46 cm recommend ultrasound in 6 months At this time she is not having any milky discharge or bloody discharge The patient does not complain of any new lumps masses or nodules of concern in either breast 05-18-24 repeat ultrasound of the left axilla on 05-08-24 showed decreased cortical thickening of axillary node to 2.8 cm therefore biopsy was cancelled and follow up in 6 months recommended, personally reviewed and interpreted Caffeine: occasional nicotine: none chocolate:eats Linda nuggets daily hormones: none BCP: used for about 10 years Family History: paternal grandmother: breast cancer maternal grandmother: skin cancer not melanoma maternal great aunt: breast cancer of this maternal grandfather: skin cancer not melanoma, prostate cancer mother: cervical or ovarian cancer Hormonal History: menarche: 16 M2, breast fed: yes, age at first : 28 not started having periods yet since Surgical History: gallbladder D&C wisdom teeth Medical History: hypothyroid HTN when Social History: nicotine: none alxohol: none drugs: none - Constitutional Constitutional: Denies chills, Denies fever - EENT Eyes: denies blurred vision, denies pain Ears: deny: decreased hearing, tinnitus Ears, nose, mouth and throat: Denies headache, Denies sore throat - Breasts Breasts: bilateral: as per HPI - Cardiovascular Cardiovascular: Denies chest pain, Denies shortness of breath - Respiratory Respiratory: Denies cough - Gastrointestinal Gastrointestinal: Denies abdominal pain, Denies diarrhea, Denies nausea, Denies vomiting - Genitourinary (Female) Genitourinary: Denies dysuria, Denies hematuria - Menstruation Menstruation: Reports as per HPI - Musculoskeletal Musculoskeletal: Denies myalgias - Integumentary Integumentary: Denies pruritus, Denies rash - Neurological Neurological: Denies numbness, Denies weakness - Psychiatric Psychiatric: Denies anxiety, Denies depression - Endocrine Endocrine: Denies fatigue, Denies weight change - Hematologic/Lymphatic Comment: none - Allergic/Immunologic Allergic/Immunologic: Reports seasonal allergies Past Medical History Past Medical History: GERD/Reflux, Hypertension, Thyroid Disorder Additional Past Medical History / Comment(s): 3 vaginal deliveries History of Any Multi-Drug Resistant Organisms: MRSA Date of last positivie culture/infection: 03/2010 MDRO Source:: Left axilla Past Surgical History: Cholecystectomy Additional Past Surgical History / Comment(s): dilated esophagus with EGD, D&C Past Anesthesia/Blood Transfusion Reactions: No Reported Reaction Past Psychological History: No Psychological Hx Reported Smoking Status: Never smoker Past Alcohol Use History: None Reported Past Drug Use History: None Reported - Past Family History Mother Family Medical History: Cancer Additional Family Medical History / Comment(s): STATES GRANDMOTHER HAS CLOTTING DISORDER WITH PEDRO FILTER. Medications and Allergies Home Medications Medication Instructions Recorded Confirmed Type Levothyroxine Sodium 50 mcg PO DAILY 07/14/18 01/14/24 History Vit No.180/Iron/Folic 1 tab PO HS 07/14/18 01/14/24 History [ Plus Vitamin-Mineral] Cholecalciferol (Vitamin D3) 1 tab PO DAILY 07/27/23 01/14/24 History [Vitamin D3 (1250 Mcg = 50,000 Iu)] Ibuprofen [Motrin] 600 mg PO TID #60 tab 09/08/23 01/14/24 Rx Acetaminophen Tab [Tylenol] 650 mg PO Q4H 09/13/23 01/14/24 History Labetalol [Trandate] 200 mg PO BID 09/13/23 01/14/24 History Allergies Allergy/AdvReac Type Severity Reaction Status Date / Time Penicillins Allergy Rash/Hives Verified 01/14/24 08:51 Objective - Constitutional General appearance: Present: cooperative - EENT Eyes: Present: EOMI ENT: Present: hearing grossly normal - Neck Neck: Present: normal ROM - Respiratory Respiratory: bilateral: CTA - Cardiovascular Heart sounds: normal: S1, S2 - Integumentary Integumentary: Present: normal turgor - Musculoskeletal Musculoskeletal: Present: gait normal - Psychiatric Psychiatric: Present: A&O x's 3, appropriate affect, intact judgment & insight - Additional findings Additional findings: Breast Exam: BRA: 38DD Inspection: Engorgement of the breast has resolved as the patient has stopped breast-feeding, bilateral grade 2/3 ptosis, fungal infection under each breast Palpation: Right breast: Multi positional exam no dominant masses or nodules of concern, no nipple discharge Right axilla: No adenopathy of concern Left breast: Multi positional exam no dominant masses or nodules of concern, no nipple discharge, particular attention to the 6 o'clock position does not reveal any nipple discharge no bloody discharge Left axilla: No adenopathy of concern Assessment and Plan Assessment: Impression: Left breast bloody nipple discharge/patient pumping/breast-feeding/baby was born September 06, 2021; no discharge on today's examination the engorgement of the breast has resolved the patient stopped breast-feeding axillary ultrasound 05-08-24 felt to have decrease in the size of the cortex of the lymph node of concern and therefore repeat ultrasound in 6 months recommended Plan: I had a discussion with the patient regarding duct exploration at the 6 o'clock position of the left breast, initially when she presented we were planning to do a duct exploration after the milk dried up. However she has had no discharge of any kind at this time. Radiographically there is no lesion noted. And on physical examination no lesion is identified with no nipple discharge. Therefore we discussed the option of a blind duct exploration versus close surveillance and at this time she would prefer close surveillance. She understands I cannot guarantee there is not something there but would still like to have close surveillance. Close surveillance lymph node left axilla Nystatin to area fungal infection Left breast/axilla ultrasound in 6 months with follow-up at that time CC: Dr. Ramos Additional CC's: Johana Saha
== END ==
LOC: WWCWWP 10:01
PROVIDERS: ATTEND Surgery
DX: N64.52 Nipple discharge (principal); R59.0 Localized enlarged lymph nodes; Z80.3 Family history of malignant neoplasm of breast; Z88.0 Allergy status to penicillin

== ENCOUNTER → 2024-05-22 | Outpatient (CLI) | payer BC | END | disposition home or self-care (01) | LOC: LABWHC1 10:14 | PROVIDERS: ATTEND Obstetrics & Gynecology | DX: N91.2 Amenorrhea, unspecified (principal) | CPT/HCPCS: 36415; 84702 ==

== ENCOUNTER → 2024-05-24 | Outpatient (CLI) | payer BC | END | disposition home or self-care (01) | LOC: LABWHC1 14:54 | DX: N91.2 Amenorrhea, unspecified (principal) | CPT/HCPCS: 36415; 84702 ==

== ENCOUNTER 2024-11-09 13:53 | Outpatient (CLI) | payer BC ==
[2024-11-09 15:10] VITALS: BP 149/83; PULSE 103; RESP 18; TEMP 98.3
--- NOTE | 2024-12-01 15:50 | P.MSEPDOC ---
Presenting Problems - Arrival Data Date of Arrival on Unit: 11/09/24 Time of Arrival on Unit: 13:53 Mode of Transport: Ambulatory - Complaint OB-Reason for Admission/Chief Complaint: Other Comment: increased heart rate while working in recovery room today, pt states hx of increased heart rate, followed by dr silva Medical History - Information : 6 Para: 3 : 3 Abortions: Spontaneous or Elective: 2 Number of Living Children: 3 - Gestational Age Gestational Age by MADAI (wks/days): 28 Weeks and 3 Days - History Comment: high BP, pre e with previous pregnancies Review of Systems - Review of Systems Constitutional: No problems Breast: No problems ENT: No problems Cardiovascular: No problems Respiratory: No problems Gastrointestinal: No problems Genitourinary: No problems Musculoskeletal: No problems Neurological: No problems Skin: No problems Vital Signs - Temperature Temperature: 98.3 F Temperature Source: Oral - Pulse Right Sitting Brachial Pulse Rate: 103 Pulse Assessment Method: Automatic Cuff - Respirations Respiratory Rate: 18 Oxygen Delivery Method: Room Air - Blood Pressure Right Arm Sitting Blood Pressure: 149/83 Blood Pressure Mean: 105 Blood Pressure Source: Automatic Cuff Medical Screen Scoring - Assessment - Baby A Baseline FHR: 130 Heart Rate - NICHD Category: Category I (Normal) NST: Reactive Physician Notification - Physician Notified Physician Notified Date: 11/09/24 Physician Notified Time: 14:45 Physician: Portia Nesbitt Order Received: Yes (dc home) Maternal Triage Index - Maternal Triage Index Presenting for scheduled procedure w/no complaint: No - Stat/Priority 1 Stat Priority 1: No - Urgent/Priority 2 Urgent Priority 2: No - Prompt/Priority 3 Prompt Priority 3: No - Non-Urgent/Priority 4 Non-Urgent Priority 4: Yes Criteria Met for Priority 4: maternal vital signs, pt complaints reviewed with Dr Nesbitt. Dc home, continue to take home bps - will consider med increase if sys remains over 140. Per pt, she will also follow up with Dr Silva. pt to see dr Nesbitt next week. Disposition - Disposition OB Disposition: Discharge to home, Written follow up instructions reviewed Discharge Date: 11/09/24 Discharge Time: 15:10 I agree with the RN Medical Screening Exam: Yes Physician's MSE Comment: I have neither seen nor examined the patient Case reviewed; plan agreed upon as documented in EMR&OBIX.: Yes Diagnosis: OTHER SPECIFIED COMPLICATIONS OF LABOR AND DELIVERY
== END 2024-11-09 15:17 | disposition home or self-care (01) ==
LOC: FBPOP 13:53
PROVIDERS: ATTEND Obstetrics & Gynecology
DX: O75.89 Other specified complications of labor and delivery (principal); Z3A.28 28 weeks gestation of pregnancy; Z88.0 Allergy status to penicillin
CPT/HCPCS: 59025; 99213

== ENCOUNTER 2024-11-29 14:25 | Outpatient (CLI) | payer BC ==
[2024-11-29 14:53] LABS: Appearance,Urine Clear (Clear); Bilirubin,Urine Negative (Negative); Blood,Urine Negative (Negative); Color,Urine Colorless; Glucose,Urine (UA) Negative (Negative); Ketones,Urine Negative (Negative); Leukocyte Esterase,Urine Negative (Negative); Nitrite,Urine Negative (Negative); PH, Urine 5.5 (5.0-8.0); Protein,Urine Negative (Negative); Specific Gravity,Urine 1.005 (1.001-1.035); Urobilinogen,Urine <2.0 mg/dL (<2.0)
[2024-11-29] MEDS: LABETALOL 200 MG TAB PO STA (15:08)
[2024-11-29] MEDS: LACTATED RINGERS 1,000 ML IV ONE (15:10)
[2024-11-29] MEDS: ACETAMINOPHEN IV (For NPO) 1,000 MG in EMPTY BAG 1 BAG IVPB STA (15:11)
[2024-11-29 15:12] LABS: Creatinine,Urine Random 39.3 mg/dL; Protein/Creatinine Ratio,Urine 0.382
[2024-11-29 15:17] LABS: ALT 13 U/L (4-34); AST 21 U/L (14-36); African American GFR (CKD) >90 (>60 ml/min/1.73 sqM); Blood Urea Nitrogen 5 mg/dL (7-17); Non-African American GFR(CKD) >90 (>60 ml/min/1.73 sqM); Uric Acid 3.7 mg/dL (3.7-7.4)
[2024-11-29 15:26] LABS: Basophils % (A) 0 %; Eosinophils # (A) 0.1 k/uL (0-0.7); Eosinophils % (A) 1 %; HCT 37.7 % (34.0-46.0); HGB 12.7 gm/dL (11.4-16.0); Lymphocytes # (A) 2.2 k/uL (1.0-4.8); Lymphocytes % (A) 23 %; MCH 29.5 pg (25.0-35.0); MCHC 33.6 g/dL (31.0-37.0); MCV 87.9 fL (80.0-100.0); Mean Platelet Volume 9.4; Monocytes # (A) 0.4 k/uL (0-1.0); Monocytes % (A) 4 %; Neutrophils # (A) 6.6 k/uL (1.3-7.7); Neutrophils % (A) 70 %; Platelet Count 187 k/uL (150-450); RBC 4.29 m/uL (3.80-5.40); RDW 13.1 % (11.5-15.5); WBC 9.4 k/uL (3.8-10.6)
[2024-11-29 16:19] VITALS: BP 144/81; PULSE 107; RESP 16; TEMP 97.3
--- NOTE | 2024-12-01 16:03 | P.MSEPDOC ---
Presenting Problems - Arrival Data Date of Arrival on Unit: 11/29/24 Time of Arrival on Unit: 14:25 Mode of Transport: Ambulatory - Complaint OB-Reason for Admission/Chief Complaint: PIH Medical History - Information : 6 Para: 3 Term: 3 : 0 Abortions: Spontaneous or Elective: 2 Number of Living Children: 3 - Gestational Age Gestational Age by MADAI (wks/days): 31 Weeks and 2 Days - History Complications: Other Comment: gestational hypertension Review of Systems - Review of Systems Constitutional: No problems Breast: No problems ENT: No problems Cardiovascular: No problems Respiratory: No problems Gastrointestinal: No problems Genitourinary: No problems Musculoskeletal: No problems Neurological: No problems Skin: No problems Vital Signs - Temperature Temperature: 97.3 F Temperature Source: Temporal Artery Scan - Pulse Right Sitting Pulse Rate: 107 Pulse Assessment Method: Automatic Cuff - Respirations Respiratory Rate: 16 Oxygen Delivery Method: Room Air - Blood Pressure Right Arm Blood Pressure: 144/81 Blood Pressure Mean: 102 Blood Pressure Source: Automatic Cuff Medical Screen Scoring - Assessment - Baby A Baseline FHR: 145 Heart Rate - NICHD Category: Category I (Normal) NST: Reactive Physician Notification - Physician Notified Physician Notified Date: 11/29/24 Physician Notified Time: 15:43 Physician: Portia Nesbitt Order Received: Yes (d/c home) Maternal Triage Index - Prompt/Priority 3 Prompt Priority 3: Yes Criteria Met for Priority 3: bps 140/80s, reactive nst, no contractions Disposition - Disposition OB Disposition: Discharge to home, Written follow up instructions reviewed Discharge Date: 11/29/24 Discharge Time: 16:06 I agree with the RN Medical Screening Exam: Yes Physician's MSE Comment: I have neither seen nor examined the patient Case reviewed; plan agreed upon as documented in EMR&OBIX.: Yes Diagnosis: OTHER SPECIFIED COMPLICATIONS OF LABOR AND DELIVERY
== END 2024-11-29 16:06 | disposition home or self-care (01) ==
LOC: FBPOP 14:25
PROVIDERS: ATTEND Obstetrics & Gynecology
DX: O75.89 Other specified complications of labor and delivery (principal); Z88.0 Allergy status to penicillin; Z3A.31 31 weeks gestation of pregnancy
CPT/HCPCS: 59025; 96365; 82570; 84156; 82565; 84450; 84460; 84520; 84550; 85025; 81003; J0131; 96361

== ENCOUNTER → 2024-11-29 | Outpatient (CLI) | payer BC ==
--- NOTE | 2024-11-29 08:16 | USB ---
Reason for Exam: Follow-up at short interval from prior study. Patient History: Menarche at age 16. First Full-Term at age 28. Patient has history of breast feeding. Patient used Hormonal Contraceptives for 10 years. 05/08/2024, US discontinued breast core LT on the left side. Paternal grandmother had breast cancer at or over age 50. Technique: Method: Targeted. Prior Study Comparison: 01/14/2024 Bilateral MG 3D diag mammo w/cad [facility], [facility]. Findings: The axilla of the left breast was scanned. Technique utilized:US breast axilla LT Image; Ultrasound imaging of: Area of concern, retroareolar region and axilla. Benign appearing lymph nodes. No suspicious solid mass or enlarged lymph node to suggest malignancy. No evidence for organizing fluid collection or mass. Overall Assessment: Benign, BI-RAD 2 Management: Screening Mammogram of both breasts in 1 year. A clinical breast exam by your physician is recommended on an annual basis and results should be correlated with mammographic findings. This exam should not preclude additional follow-up of suspicious palpable abnormalities. Results were given to the patient verbally at the time of exam. [facility], , 11/29/2024 7:39 AM. Electronically signed and approved by: Keith Hermosillo DO
== END | disposition home or self-care (01) ==
LOC: RADUSWWP 07:06
PROVIDERS: ATTEND Surgery
DX: N64.52 Nipple discharge (principal); Z80.3 Family history of malignant neoplasm of breast

== ENCOUNTER 2024-12-04 16:15 | Outpatient (CLI) | payer BC ==
[2024-12-04 17:39] LABS: Basophils % (A) 0 %; Eosinophils # (A) 0.1 k/uL (0-0.7); Eosinophils % (A) 1 %; HCT 35.5 % (34.0-46.0); HGB 12.2 gm/dL (11.4-16.0); Lymphocytes # (A) 1.7 k/uL (1.0-4.8); Lymphocytes % (A) 19 %; MCH 29.6 pg (25.0-35.0); MCHC 34.4 g/dL (31.0-37.0); MCV 86.1 fL (80.0-100.0); Mean Platelet Volume 9.3; Monocytes # (A) 0.4 k/uL (0-1.0); Monocytes % (A) 5 %; Neutrophils # (A) 6.5 k/uL (1.3-7.7); Neutrophils % (A) 73 %; Platelet Count 154 k/uL (150-450); RBC 4.13 m/uL (3.80-5.40); WBC 8.9 k/uL (3.8-10.6)
[2024-12-04 17:53] LABS: ALT 12 U/L (4-34); AST 21 U/L (14-36); African American GFR (CKD) >90 (>60 ml/min/1.73 sqM); Blood Urea Nitrogen 10 mg/dL (7-17); LDH 183 U/L (120-246); Non-African American GFR(CKD) >90 (>60 ml/min/1.73 sqM); Uric Acid 4.8 mg/dL (3.7-7.4)
[2024-12-04 22:45] VITALS: BP 132/82; PULSE 119; RESP 18; TEMP 98.6
--- NOTE | 2024-12-24 12:45 | P.MSEPDOC ---
Presenting Problems - Arrival Data Date of Arrival on Unit: 12/04/24 Time of Arrival on Unit: 16:15 Mode of Transport: Ambulatory - Complaint OB-Reason for Admission/Chief Complaint: PIH Medical History - Information : 6 Para: 3 Term: 2 : 1 Abortions: Spontaneous or Elective: 2 Number of Living Children: 3 - Gestational Age Gestational Age by MADAI (wks/days): 32 Weeks and 0 Days - History Complications: No Care Review of Systems - Review of Systems Constitutional: No problems Breast: No problems ENT: No problems Cardiovascular: No problems Respiratory: No problems Gastrointestinal: No problems Genitourinary: No problems Musculoskeletal: No problems Neurological: No problems Skin: No problems Vital Signs - Temperature Temperature: 98.6 F Temperature Source: Axillary - Pulse Right Pulse Oximetery Pulse Rate: 119 Pulse Assessment Method: Pulse Oximetry - Respirations Respiratory Rate: 18 Oxygen Delivery Method: Room Air O2 Sat by Pulse Oximetry: 96 - Blood Pressure Right Arm Blood Pressure: 132/82 Blood Pressure Mean: 98 Blood Pressure Source: Automatic Cuff Medical Screen Scoring - Uterine Contractions Frequency From (mins): 0 Frequency To (mins): 0 - Assessment - Baby A Baseline FHR: 135 Heart Rate - NICHD Category: Category I (Normal) NST: Reactive Physician Notification - Physician Notified Physician Notified Date: 12/04/24 Physician Notified Time: 16:30 Physician: Portia Nesbitt Order Received: Yes Maternal Triage Index - Maternal Triage Index Presenting for scheduled procedure w/no complaint: No - Stat/Priority 1 Stat Priority 1: No - Urgent/Priority 2 Urgent Priority 2: No - Prompt/Priority 3 Prompt Priority 3: No - Non-Urgent/Priority 4 Non-Urgent Priority 4: Yes Criteria Met for Priority 4: symptoms of pre-e Disposition - Disposition OB Disposition: Discharge to home Discharge Date: 12/04/24 Discharge Time: 18:35 I agree with the RN Medical Screening Exam: Yes Physician's MSE Comment: I have neither seen nor examined the patient Case reviewed; plan agreed upon as documented in EMR&OBIX.: Yes Diagnosis: MATERNAL CARE FOR PROBLEM, UNSP, THIRD * DO NOT USE *
== END 2024-12-04 18:35 | disposition home or self-care (01) ==
LOC: FBPOP 16:15
PROVIDERS: ATTEND Obstetrics & Gynecology
DX: O36.93X0 Maternal care for fetal problem, unspecified, third trimester, not applicable or unspecified (principal); Z3A.32 32 weeks gestation of pregnancy; Z88.0 Allergy status to penicillin
CPT/HCPCS: 59025; 82565; 83615; 84450; 84460; 84520; 84550; 85025; 99215

== ENCOUNTER 2024-12-22 18:24 | Observation (INO) | payer BC ==
[2024-12-22 19:00] LABS: Appearance,Urine Clear (Clear); Bilirubin,Urine Negative (Negative); Blood,Urine Negative (Negative); Color,Urine Yellow; Glucose,Urine (UA) Negative (Negative); Ketones,Urine Negative (Negative); Leukocyte Esterase,Urine Trace (Negative); Mucus,Urine Occasional /hpf; Nitrite,Urine Negative (Negative); Protein,Urine Trace (Negative); RBC,Urine 1 /hpf (0-5); Specific Gravity,Urine 1.025 (1.001-1.035); Squamous Epithelial Cell,Urine 3 /hpf (0-4); Urobilinogen,Urine <2.0 mg/dL (<2.0); WBC,Urine 2 /hpf (0-5)
[2024-12-22] MEDS: ACETAMINOPHEN IV (For NPO) 1,000 MG in EMPTY BAG 1 BAG IVPB STA (19:04)
[2024-12-22] MEDS: LACTATED RINGERS 500 ML IV ONE (19:08)
[2024-12-22 19:10] LABS: Creatinine,Urine Random 165.1 mg/dL; Protein/Creatinine Ratio,Urine 0.133
[2024-12-22 19:12] LABS: Basophils % (A) 0 %; Eosinophils # (A) 0.1 k/uL (0-0.7); Eosinophils % (A) 2 %; HCT 35.5 % (34.0-46.0); HGB 12.2 gm/dL (11.4-16.0); Lymphocytes # (A) 2.1 k/uL (1.0-4.8); Lymphocytes % (A) 24 %; MCH 29.4 pg (25.0-35.0); MCHC 34.4 g/dL (31.0-37.0); MCV 85.5 fL (80.0-100.0); Monocytes # (A) 0.4 k/uL (0-1.0); Monocytes % (A) 4 %; Neutrophils # (A) 6.2 k/uL (1.3-7.7); Neutrophils % (A) 68 %; Platelet Count 220 k/uL (150-450); RBC 4.16 m/uL (3.80-5.40); WBC 9.1 k/uL (3.8-10.6)
[2024-12-22 19:20] LABS: ALT 17 U/L (4-34); AST 21 U/L (14-36); African American GFR (CKD) >90 (>60 ml/min/1.73 sqM); Blood Urea Nitrogen 11 mg/dL (7-17); Non-African American GFR(CKD) >90 (>60 ml/min/1.73 sqM); Uric Acid 4.1 mg/dL (3.7-7.4)
[2024-12-22] MEDS: diphenhydrAMINE 50 MG/ML 1 ML VIAL IVP PRN (20:31)
[2024-12-22] MEDS: METOCLOPRAMIDE 5 MG/ML 2 ML VIAL IVP STA (20:35)
[2024-12-22 20:58] VITALS: RESP 16
[2024-12-22] MEDS: PRENATAL VIT-IRON-FOLIC ACID 1 EACH TABLET PO SCH (22:25)
[2024-12-22] MEDS: LABETALOL 200 MG TAB PO SCH (22:25)
[2024-12-23] MEDS: ACETAMINOPHEN TAB 500 MG TAB PO PRN (02:29)
[2024-12-23] MEDS: LEVOTHYROXINE 50 MCG TAB PO SCH (06:39)
[2024-12-23] MEDS: NIFEdipine XL 30 MG TAB.ER.24 PO SCH (08:59)
[2024-12-23] MEDS ORDERED: CALCIUM GLUCONATE 1 GM/10 ML VIAL IV PRN (09:00)
--- NOTE | 2024-12-23 09:00 | P.HPOB ---
History of Present Illness H&P Date: 12/23/24 Chief Complaint: Headache, visual disturbances Ms. Varner is a 34 year old at 34 weeks and 5 days gestation with EDC of 01/29/2025 by LMP consistent with 9 week US who presents with intractable headache and visual changes in the context of chronic hypertension. She began the on Labetalol 100 BID per cardiology. She also had baseline proteinuria with a P:C of 0.5, but otherwise PIH labs were within normal limits. Her antihypertensive requirements have progressively increased throughout the to Labetalol 200mg TID and Procardia XL 30mg daily. For the past several weeks she has had near daily headaches, usually described as dull. Yesterday evening she left work due to a severe range blood pressure that was reportedly 170s/90s and came to triage. She had mild-range blood pressures in triage, no higher than 150s/90s. She did complain of a 4/10 headache and visual disturbances including flashes of light, scotomata, and blurry vision. She was observed overnight, given scheduled Tylenol and benadryl for headache as well as one dose of Reglan. Her headache this morning is now 3/10, dull and mostly unchanged. Her visual changes have improved to only the top field of vision but as still present. PIH labs were drawn last night which were within normal limits and P:C was 0.1. Obstetric history: 1 PTVD at 36 weeks complicated by gestational HTN (2017, female, 6#14oz), 1 FTVD at 37 weeks after induction for gestational HTN followed by pre-eclampsia (2019, female, 8#6oz), 1 SAB > 1 VTOP for Trisomy 21 > 1 IOL at 37 weeks with FTVD for gHTN followed by PP preE (2022, male, 8#5oz) work-up: blood type O positive, antibody screen negative, rubella immune, VDRL non-reactive, HBsAg negative, HIV negative, HCV Ab non-reactive, gonorrhea negative, chlamyida negative, 1 hour GTT wnl, GBS unknown. Anatomy US at 20 weeks showed EFW 62%, posterior placenta no previa, normal anatomy, normal fluid. Past Medical History Past Medical History: GERD/Reflux, Hypertension, Thyroid Disorder Additional Past Medical History / Comment(s): 3 vaginal deliveries History of Any Multi-Drug Resistant Organisms: MRSA Date of last positivie culture/infection: 03/2010 MDRO Source:: Left axilla Past Surgical History: Cholecystectomy Additional Past Surgical History / Comment(s): dilated esophagus with EGD, D&C. Past Anesthesia/Blood Transfusion Reactions: No Reported Reaction Past Psychological History: Anxiety Smoking Status: Never smoker Past Alcohol Use History: None Reported Past Drug Use History: None Reported - Past Family History Mother Family Medical History: Cancer Additional Family Medical History / Comment(s): STATES GRANDMOTHER HAS CLOTTING DISORDER WITH PEDRO FILTER. Medications and Allergies Home Medications Medication Instructions Recorded Confirmed Type Levothyroxine Sodium 50 mcg PO DAILY 07/14/18 12/22/24 History Vit No.180/Iron/Folic 1 tab PO HS 07/14/18 12/22/24 History [ Plus Vitamin-Mineral] Labetalol [Trandate] 2 tab PO TID 10/15/24 12/22/24 History NIFEdipine XL [Procardia Xl] 30 mg PO DAILY 12/04/24 12/22/24 History Allergies Allergy/AdvReac Type Severity Reaction Status Date / Time Penicillins Allergy Rash/Hives Verified 12/22/24 18:35 Exam Vital Signs Temp Pulse Resp BP Pulse Ox 12/23/24 06:00 88 16 129/62 12/23/24 02:20 97.5 F L 85 16 131/82 12/22/24 22:00 97.5 F L 75 16 143/88 12/22/24 20:26 96.4 F L 89 16 136/82 97 12/22/24 18:34 97.5 F L 89 16 136/87 97 Intake and Output 12/22/24 12/23/24 12/23/24 22:59 06:59 14:59 Other: # Voids 1 1 Weight 114.305 kg Focused physical exam is performed. This is a healthy-appearing in no apparent distress. Breathing is non-labored. Abdomen is gravid and non-tender. Extremities non-tender and non-edematous. heart tones are reactive and reassuring on NST. Bedside US shows cephalic presentation. Results Result Diagrams: 12/22/24 19:00 12/22/24 19:00 Abnormal Lab Results - Last 24 Hours (Table) 12/22/24 Range/Units 18:50 Urine Protein Trace H (Negative) Ur Leukocyte Esterase Trace H (Negative) Urine Mucus Occasional H (None) /hpf Assessment and Plan Assessment: 34 year old at 34 weeks and 4 days with cHTN now with superimposed pre- eclampsia Plan: Will transfer to [facility] for cHTN with superimposed pre-eclampsia with severe features. Dr. Haro has accepted the transfer. Will start Mag Sulfate bolus and give first dose of betamethasone. Time with Patient: Greater than 30
[2024-12-23 09:07] VITALS: BP 135/89; PULSE 103; TEMP 97.7
[2024-12-23] MEDS: MAGNESIUM SULFATE GM 6 GM in SODIUM CHLORIDE 0.9% 100 ML IVPB ONE (09:21)
[2024-12-23] MEDS: BETAMET ACET-BETAMETH SOD PHOS 6 MG/ML MDV IM SCH (09:30)
[2024-12-23] MEDS: LACTATED RINGERS 1,000 ML IV SCH (09:31)
[2024-12-23] MEDS: MAGNESIUM SULFATE-WATER PMX 20 GM in WATER FOR INJECTION 1 500ML.BAG IV SCH (09:52)
--- NOTE | 2024-12-24 13:00 | P.MSEPDOC ---
Presenting Problems - Arrival Data Date of Arrival on Unit: 12/22/24 Time of Arrival on Unit: 18:30 Mode of Transport: Ambulatory - Complaint OB-Reason for Admission/Chief Complaint: Headache, Visual Disturbances, PIH Comment: c/o elevated BPs, ARENAS and blurry vision. Pt reports that she was working today, started to not "feel good" and checked her BP which was elevated. Pt stated that she was heavily educated in the office to come to triage with any of the s/s she described, so she presented to treatment. Medical History - Information : 6 Para: 3 Term: 2 : 1 Abortions: Spontaneous or Elective: 2 Number of Living Children: 3 - Gestational Age Gestational Age by MADAI (wks/days): 34 Weeks and 4 Days - History Complications: Preeclampsia, Prior Review of Systems - Review of Systems Constitutional: No problems Breast: No problems ENT: No problems Cardiovascular: No problems Respiratory: No problems Gastrointestinal: No problems Genitourinary: No problems Musculoskeletal: No problems Neurological: No problems Skin: No problems Vital Signs - Temperature Temperature: 97.7 F Temperature Source: Oral - Pulse Pulse Oximetery Pulse Rate: 103 Pulse Assessment Method: Automatic Cuff - Respirations Respiratory Rate: 16 Oxygen Delivery Method: Room Air - Blood Pressure Right Arm Blood Pressure: 135/89 Blood Pressure Mean: 104 Blood Pressure Source: Automatic Cuff Medical Screen Scoring - Assessment - Baby A Baseline FHR: 150 Heart Rate - NICHD Category: Category I (Normal) NST: Reactive Physician Notification - Physician Notified Physician Notified Date: 12/22/24 Physician Notified Time: 19:39 Physician: Portia Nesbitt New Order Received: Yes - Notification Comment Comment: PIH labs and BP reviewed, patient symtoms reviewed, pt. still having 4/10 headache no releif from orirmev, orders to OBV patient for the night NST qshift, tylenol 1000mg every 6 hours, benadryl 25mg every 6 hours, and reglan 5mg once, vitals every 4 hours. Maternal Triage Index - Maternal Triage Index Presenting for scheduled procedure w/no complaint: No - Stat/Priority 1 Stat Priority 1: No - Urgent/Priority 2 Urgent Priority 2: Yes Provider Notified: Portia Nesbitt Provider Notified Time: 18:39 Criteria Met for Priority 2: PIH labs ordered and ofrimev Disposition - Disposition OB Disposition: Admit, Observe Transferred to:: suit 14 I agree with the RN Medical Screening Exam: Yes Physician's MSE Comment: I have neither seen nor examined the patient Case reviewed; plan agreed upon as documented in EMR&OBIX.: Yes Diagnosis: GESTATIONAL HTN W/O SIGNIFICANT PROTEINURIA, THIRD TRIMESTER
== END 2024-12-23 11:05 ==
LOC: FBPOP 18:24 → 4FBP 19:58
PROVIDERS: ADMIT Obstetrics & Gynecology; ATTEND Obstetrics & Gynecology
DX: O11.3 Pre-existing hypertension with pre-eclampsia, third trimester (principal); O10.913 Unspecified pre-existing hypertension complicating pregnancy, third trimester; O99.613 Diseases of the digestive system complicating pregnancy, third trimester; K21.9 Gastro-esophageal reflux disease without esophagitis; O99.343 Other mental disorders complicating pregnancy, third trimester; F41.9 Anxiety disorder, unspecified; O99.283 Endocrine, nutritional and metabolic diseases complicating pregnancy, third trimester; E07.9 Disorder of thyroid, unspecified; Z3A.34 34 weeks gestation of pregnancy; Z79.890 Hormone replacement therapy; Z79.899 Other long term (current) drug therapy; Z88.0 Allergy status to penicillin
CPT/HCPCS: 59025; 96376; 99215; 96365; 96366; 96372; 96375; 36415; 82570; 84156; 82565; 84450; 84460; 84520; 84550; 85025; 81001; G0378 ×2; G0379; J1200 ×2; J2765; J3475 ×2; S0197; J0131; J0702; 96361